=== PATIENT | male | born 1970 | race Caucasian/White ===

== ENCOUNTER 2016-11-10 00:21 | Inpatient (IN) | payer BC ==
[~2016-11-10] VITALS: Ht 172.7 cm; Wt 61.4 kg
[2016-11-10] MEDS ORDERED: LISI10TA2 PO (03:45)
[2016-11-10] MEDS ORDERED: ATOR20TA65 PO (03:45)
[2016-11-10] MEDS ORDERED: LINA1TAB7 PO (03:45)
[2016-11-10] MEDS ORDERED: SITA50TA2 PO (03:45)
[2016-11-10] MEDS ORDERED: EMPA10TA PO (03:45)
[2016-11-10] MEDS ORDERED: ASPI-664 PO (03:45)
[2016-11-10 03:50] VITALS: BP 106/68; PULSE 61; RESP 20
[2016-11-10] MEDS ORDERED: DOCUSATE SODIUM 100 MG CAP PO PRN (05:00)
[2016-11-10] MEDS ORDERED: BISACODYL (EC) 5 MG TAB PO PRN (05:00)
[2016-11-10] MEDS ORDERED: ACETAMINOPHEN 325 MG TAB PO PRN (05:00)
[2016-11-10 05:27] LABS: ADD SCAN DIFF NO
[2016-11-10] MEDS ORDERED: GLUCOSE GEL 15 GRAM TUBE PO PRN ×2 (05:30)
[2016-11-10] MEDS ORDERED: GLUCAGON 1 MG INJ IM PRN (05:30)
[2016-11-10] MEDS ORDERED: DEXTROSE 50% 50 ML SYRINGE IV PRN ×2 (05:30)
[2016-11-10] MEDS ORDERED: GLUCOSE GEL 15 GRAM TUBE BUCCAL PRN (05:30)
[2016-11-10 05:41] LABS: BASOPHIL # 0.2 10^3/ul (0.0-0.1); BASOPHILS % 1.6 % (0.0-2.0); EOSINOPHILS # 0.9 10^3/ul (0.0-0.5); EOSINOPHILS % 9.9 % (0.0-7.0); HEMATOCRIT 45.9 % (42.0-52.0); LYMPHOCYTES # 2.8 10^3/ul (0.8-2.9); LYMPHOCYTES % 29.5 % (15.0-51.0); MEAN CORPUSCULAR HGB CONC 32.7 g/dl (32.0-37.0); MEAN CORPUSCULAR VOLUME 91.8 fl (82.0-101.0); MEAN PLATELET VOLUME 8.9 fl (7.4-10.4); MONOCYTE # 0.8 10^3/ul (0.3-0.9); MONOCYTES % 8.1 % (0.0-11.0); NEUTROPHIL # 4.8 10^3/ul (1.6-7.5); NEUTROPHILS % 50.5 % (39.0-77.0); PLATELET COUNT 336 10^3/UL (140-415); RED CELL DISTRIBUTION WIDTH 12.9 % (11.5-14.5); WHITE BLOOD COUNT 9.5 10^3/ul (4.8-10.8)
[2016-11-10] MEDS: PANTOPRAZOLE (EC) 40 MG TAB PO SCH (05:48)
[2016-11-10 06:06] LABS: ALBUMIN 4.7 g/dl (3.3-4.9); ALBUMIN/GLOBULIN RATIO 1.95; BILIRUBIN,INDIRECT 0.5 mg/dl (0-1.1); BILIRUBIN,TOTAL 0.5 mg/dl (0.2-1.3); CALCIUM 9.3 mg/dl (8.4-10.2); CREATININE 0.64 mg/dl (0.61-1.24); POTASSIUM 4.1 mmol/L (3.5-5.1); TOTAL PROTEIN 7.1 g/dl (6.1-8.1)
[2016-11-10 06:12] VITALS: Ht 172.7 cm; Wt 61.4 kg
[2016-11-10] MEDS: IPRATROPIUM (NEB) 0.5 MG/2.5 ML AMP HHN SCH ×5 (08:00→20:22)
[2016-11-10] MEDS: [UNRECOGNIZED DRUG - REMARK] XX SCH ×2 (08:00→15:40)
[2016-11-10 08:45] VITALS: BP 115/68; RESP 20
[2016-11-10] MEDS: ASPIRIN (EC) 81 MG TAB PO SCH (08:56)
[2016-11-10] MEDS: LISINOPRIL 10 MG TAB PO SCH (08:56)
[2016-11-10] MEDS ORDERED: LINAGLIPTIN 5 MG TABLET PO SCH (09:00)
[2016-11-10] MEDS: INSULIN ASPART [NOVOLOG] 3 ML PEN SC SCH ×4 (09:01→21:24)
[2016-11-10 12:45] LABS: INR 0.88; PROTIME 11.9 Sec (12.2-14.2); PT RATIO 0.9
[2016-11-10] MEDS: DEXAMETHASONE 10 MG/ML 1 ML INJ IV SCH ×3 (15:24→23:19)
--- NOTE | 2016-11-10 17:55 | HP ---
Date/Time of Note Date/Time of Note DATE: 11/10/16 TIME: 17:50 Assessment/Plan VTE Prophylaxis VTE Prophylaxis Intervention: other Lines/Catheters IV Catheter Type (from [facility]): Saline Lock Urinary Cath still in place: Yes Reason Cath still needed: other (indicate) Assessment/Plan Chief Complaint/Hosp Course POSSIBLE GB SYNDROME DM HTN HX PLAN NEURO NEURO SURGERY Problems: HPI/ROS Admit Date/Time Admit Date/Time Nov 10, 2016 at 03:06 Hx of Present Illness pt bhavani langley ex wealm[facility] for 3 days was in [facility] tranfered to [facility] ROS Constitutional: chills, no complaints Eyes: no complaints ENT: no complaints Respiratory: no complaints Cardiovascular: no complaints Gastrointestinal: no complaints Genitourinary: no complaints Musculoskeletal: other (weakness extremi+) Skin: no complaints Neurologic: no complaints Endocrine: no complaints Lymphatic: no complaints Psychological: no complaints Immunologic: no complaints PMH/Family/Social Past Medical History Medical History: no pertinent history Past Surgical History Past Surgical Hx: no surgical history Family History Significant Family History: no pertinent family hx Social History Smoking Status: Current every day smoker Exam/Review of Systems Vital Signs Vitals Vital Signs Date Time Temp Pulse Resp B/P Pulse Ox O2 Delivery O2 Flow Rate FiO2 11/10/16 13:00 59 16 97 21 11/10/16 08:45 98.3 115/68 11/10/16 03:50 Room Air Intake and Output 11/09/16 11/09/16 11/10/16 15:00 23:00 07:00 Intake Total 700 ml Output Total 500 ml Balance 200 ml Exam Constitutional: alert, oriented, well developed Psych: nl mood/affect, no complaints Head: atraumatic, normocephalic Eyes: EOMI, nl conjunctiva, nl lids ENMT: nl external ears & nose, nl lips & teeth, nl nasal mucosa & septum Neck: non-tender, supple Respiratory: clear to auscultation, normal air movement Cardiovascular: nl pulses, regular rate and rhythm Gastrointestinal: nl liver, spleen, non-tender, soft Genitourinary - Female: nl adnexae, nl external genitalia Musculoskeletal: nl extremities to inspection, nl gait and stance Extremities: normal pulses Neurological: ASSURANCE ASSISTANT II-XII intact, focal weakness (upper amd lower ex) Labs Result Diagram: 11/10/16 0500 11/10/16 0500 Medications Medications Current Medications Pantoprazole (Protonix Tab) 40 mg DAILY@06 PO Last administered on 11/10/16 05 :48; Admin Dose 40 MG; Start 11/10/16 at 06:00 Acetaminophen (Tylenol Tab) 650 mg Q6H PRN PO PAIN AND OR ELEVATED TEMP; Start 11/10/16 at 05:00 Docusate Sodium (Colace) 100 mg TID PRN PO CONSTIPATION; Start 11/10/16 at 05: 00 Bisacodyl (Dulcolax) 10 mg BID PRN PO CONSTIPATION; Start 11/10/16 at 05:00 Aspirin (Halfprin) 81 mg DAILY PO Last administered on 11/10/16 08:56; Admin Dose 81 MG; Start 11/10/16 at 09:00 Atorvastatin Calcium (Lipitor) 20 mg HS PO ; Start 11/10/16 at 21:00 Lisinopril (Zestril) 10 mg DAILY PO Last administered on 11/10/16 08:56; Admin Dose 10 MG; Start 11/10/16 at 09:00 Miscellaneous Information (* Miscellaneous Pharmacy Order) CHARLYMARIELY 2.09/999 ONE TAB... ONCE XX ; Start 11/10/16 at 05:00; Status UNV Diagnostic Test (Pha) (Accu-Chek) 1 ea 02 XX ; Start 11/11/16 at 02:00 Diagnostic Test (Pha) (Accu-Chek) 1 ea 02 XX ; Start 11/11/16 at 02:00 Miscellaneous Information 1 ea NOTE XX ; Start 11/10/16 at 05:30 Glucose (Glutose) 15 gm Q15M PRN PO DECREASED GLUCOSE; Start 11/10/16 at 05:30 Glucose (Glutose) 22.5 gm Q15M PRN PO DECREASED GLUCOSE; Start 11/10/16 at 05: 30 Dextrose (D50w Syringe) 25 ml Q15M PRN IV DECREASED GLUCOSE; Start 11/10/16 at 05:30 Dextrose (D50w Syringe) 50 ml Q15M PRN IV DECREASED GLUCOSE; Start 11/10/16 at 05:30 Glucagon (Glucagen) 1 mg Q15M PRN IM DECREASED GLUCOSE; Start 11/10/16 at 05:30 Glucose (Glutose) 15 gm Q15M PRN BUCCAL DECREASED GLUCOSE; Start 11/10/16 at 05 :30 Linagliptin (Tradjenta) 5 mg DAILY PO Last administered on 11/10/16 08:45; Admin Dose 5 MG; Start 11/10/16 at 09:00 Dexamethasone (Decadron) 10 mg Q6 IV Last administered on 11/10/16 15:24; Admin Dose 10 MG; Start 11/10/16 at 12:00 NYASIA JOSEPH MD Nov 10, 2016 17:55
[2016-11-10] MEDS: JENTADUETO PO SCH (18:30)
[2016-11-10] MEDS ORDERED: IMMUNE GLOBULIN (HUMAN) 6 GM INJ IV SCH (19:00)
--- NOTE | 2016-11-10 19:18 | CONS ---
Date/Time of Note Date/Time of Note DATE: 11/10/16 TIME: 19:01 Assessment/Plan Assessment/Plan Chief Complaint/Hosp Course PHYSICAL EXAMINATION: GENERAL: Not in acute distress, lying in bed. HEENT: Normocephalic, atraumatic head. NECK: No carotid bruits. No thyromegaly. LUNGS: Clear to auscultation bilaterally. CARDIAC: Normal cardiac rhythm and sounds. ABDOMEN: Soft. EXTREMITIES: No cyanosis, clubbing, or edema. NEUROLOGIC: He is awake, alert, and oriented x3 with fluent speech. Cranial nerve examination shows intact visual ventura bilaterally. Pupils round, reactive to light from 3 to 2 mm bilaterally. Extraocular movements intact without nystagmus. Symmetrical face. Preserved facial strength and sensation. Tongue is in midline. Palate elevates symmetrically. Motor strength examination 3/5 UE, RLE, 3-/5 LLE. Normal bulk, decreased tone. Sensory examination shows diminution of perception of pinprick and vibration in bilateral hands and forearms and feet with forelegs. Deep tendon reflexes 1+ RUE, 0 LUE, absent in lower extremities, except 2 right knee jerk. Downgoing toes bilaterally. Coordination preserved on [id number] testing. No dysmetria or tremor. 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 LP with protein. Neg insp pressure daily by RT. NS evaluated the pt, advised to have C-spine MRI here , will be done tonight. Problems: Past Medical History Medical History: no pertinent history, diabetes Past Surgical History Past Surgical Hx: no surgical history Family History Significant Family History: no pertinent family hx Social History Smoking Status: Current every day smoker Admit Date/Time Admit Date/Time Nov 10, 2016 at 03:06 Hx of Present Illness 46 y/o male with rapid onset of generalized weakness, started LLE, ascending, electrical paresthesias, pain in extremities about 10 days ago. Slightly better now, no pain, strength is better UE. No B/B, SOB, dysarthria, dysphagia, diplopia, headache. ROS Constitutional: chills, no complaints Eyes: no complaints ENT: no complaints Respiratory: no complaints Cardiovascular: no complaints Gastrointestinal: no complaints Genitourinary: no complaints Musculoskeletal: other (weakness extremi+) Skin: no complaints Neurologic: no complaints Endocrine: no complaints Lymphatic: no complaints Psychological: nl mood/affect, no complaints Immunologic: no complaints Exam/Review of Systems Vital Signs Vitals Vital Signs Date Time Temp Pulse Resp B/P Pulse Ox O2 Delivery O2 Flow Rate FiO2 11/10/16 13:00 59 16 97 21 11/10/16 08:45 98.3 115/68 11/10/16 03:50 Room Air Intake and Output 11/09/16 11/09/16 11/10/16 15:00 23:00 07:00 Intake Total 700 ml Output Total 500 ml Balance 200 ml Results Result Diagram: 11/10/16 0500 11/10/16 0500 Results 24 hrs Laboratory Tests Test 11/10/16 03:54 11/10/16 05:00 11/10/16 08:44 11/10/16 11:57 Bedside Glucose 125 152 White Blood Count 9.5 Red Blood Count 5.00 Hemoglobin 15.0 Hematocrit 45.9 Mean Corpuscular Volume 91.8 Mean Corpuscular Hemoglobin 30.0 Mean Corpuscular Hemoglobin Concent 32.7 Red Cell Distribution Width 12.9 Platelet Count 336 Mean Platelet Volume 8.9 Neutrophils % 50.5 Lymphocytes % 29.5 Monocytes % 8.1 Eosinophils % 9.9 H Basophils % 1.6 Nucleated Red Blood Cells % 0.0 Neutrophils # 4.8 Lymphocytes # 2.8 Monocytes # 0.8 Eosinophils # 0.9 H Basophils # 0.2 H Nucleated Red Blood Cells # 0.0 Sodium Level 138 Potassium Level 4.1 Chloride Level 102 Carbon Dioxide Level 26 Anion Gap 14 Blood Urea Nitrogen 29 H Creatinine 0.64 Glucose Level 107 Calcium Level 9.3 Total Bilirubin 0.5 Direct Bilirubin 0.00 Indirect Bilirubin 0.5 Aspartate Amino Transf (AST/SGOT) 50 H Alanine Aminotransferase (ALT/SGPT) 56 Alkaline Phosphatase 63 Total Protein 7.1 Albumin 4.7 Globulin 2.40 Albumin/Globulin Ratio 1.95 Prothrombin Time 11.9 L Prothrombin Time Ratio 0.9 INR International Normalized Ratio 0.88 Activated Partial Thromboplast Time 38.0 H Test 11/10/16 13:24 11/10/16 17:45 Bedside Glucose 126 243 H Medications Medications Current Medications Pantoprazole (Protonix Tab) 40 mg DAILY@06 PO Last administered on 11/10/16t 05 :48; Admin Dose 40 MG; Start 11/10/16 at 06:00 Acetaminophen (Tylenol Tab) 650 mg Q6H PRN PO PAIN AND OR ELEVATED TEMP; Start 11/10/16 at 05:00 Docusate Sodium (Colace) 100 mg TID PRN PO CONSTIPATION Last administered on 17:46; Admin Dose 100 MG; Start 11/10/16 at 05:00 Bisacodyl (Dulcolax) 10 mg BID PRN PO CONSTIPATION; Start 11/10/16 at 05:00 Aspirin (Halfprin) 81 mg DAILY PO Last administered on 11/10/16 08:56; Admin Dose 81 MG; Start 11/10/16 at 09:00 Atorvastatin Calcium (Lipitor) 20 mg HS PO ; Start 11/10/16 at 21:00 Lisinopril (Zestril) 10 mg DAILY PO Last administered on 11/10/16 08:56; Admin Dose 10 MG; Start 11/10/16 at 09:00 Diagnostic Test (Pha) (Accu-Chek) 1 ea 02 XX ; Start 11/11/16 at 02:00 Miscellaneous Information 1 ea NOTE XX ; Start 11/10/16 at 05:30 Glucose (Glutose) 15 gm Q15M PRN PO DECREASED GLUCOSE; Start 11/10/16 at 05:30 Glucose (Glutose) 22.5 gm Q15M PRN PO DECREASED GLUCOSE; Start 11/10/16 at 05: 30 Dextrose (D50w Syringe) 25 ml Q15M PRN IV DECREASED GLUCOSE; Start 11/10/16 at 05:30 Dextrose (D50w Syringe) 50 ml Q15M PRN IV DECREASED GLUCOSE; Start 11/10/16 at 05:30 Glucagon (Glucagen) 1 mg Q15M PRN IM DECREASED GLUCOSE; Start 11/10/16 at 05:30 Glucose (Glutose) 15 gm Q15M PRN BUCCAL DECREASED GLUCOSE; Start 11/10/16 at 05 :30 Dexamethasone (Decadron) 10 mg Q6 IV Last administered on 11/10/16 15:24; Admin Dose 10 MG; Start 11/10/16 at 12:00 Immune Globulin (Carimune Nf) 30 gm DAILY IV ; Start 11/10/16 at 19:00; Stop at 18:59; Status UNV Acetaminophen (Tylenol Tab) 1,000 mg DAILY PO ; Start 11/10/16 at 19:00; Stop at 18:59; Status UNV Diphenhydramine HCl (Benadryl) 50 mg DAILY PO ; Start 11/10/16 at 19:00; Stop at 18:59; Status UNV DEMETRICE GUADALUPE MD Nov 10, 2016 19:11
[2016-11-10 20:00] VITALS: BP 114/72; RESP 19
[2016-11-10] MEDS: DIPHENHYDRAMINE 50 MG CAP PO SCH (21:18)
[2016-11-10] MEDS: ACETAMINOPHEN 500 MG TAB PO SCH (21:19)
[2016-11-10] MEDS: ATORVASTATIN 20 MG TAB PO SCH (21:19)
[2016-11-10] MEDS: WATER STERILE FOR IV SCH (21:31)
[2016-11-10] MEDS: IMMUNE GLOBULIN IV SCH (21:31)
[2016-11-10] MEDS ORDERED: SOD CHLORIDE 0.9% IV SCH (22:00)
[2016-11-10] MEDS ORDERED: IMMUNE GLOBULIN IV SCH (22:00)
--- NOTE | 2016-11-10 23:41 | RADRPT ---
PROCEDURE: MR Cervical Spine without contrast. CLINICAL INDICATION: Spinal stenosis. TECHNIQUE: An MRI of the cervical spine was performed on a 1.5 anna scanner utilizing the follow ing sequences: Pre and postcontrast sagittal and axial T1 weighted, sagittal and axial T2 weighted, and sagittal T2 weighted with fat saturation. COMPARISON: None. FINDINGS:. The visualized posterior fossa contents and brainstem are unremarkable. There is a normal lordosis of the cervical spine. The vertebral bodies are normal in height and sign al intensity. The cervical cord is normal in caliber and signal intensity. The craniocervical junct ion is unremarkable. 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 This exacerbated by multilevel facet joint arthropathy and degenerative disk changes as d escribed below. C2-3: The disk is normal in height and hydration. Moderate to severe hypertrophic facet joint arthr opathy bilaterally resulting in severe left foraminal stenosis without significant right foraminal s tenosis. Moderate central canal stenosis of 7 mm in AP dimension C3-4: Disk desiccation and loss of disk height with anterior endplate spurring and right the left giron barticular to foraminal disk osteophyte complex measuring 5 mm in AP dimension. Severe right and mo derate to severe left hypertrophic facet joint arthropathy. Severe right foraminal stenosis without significant left foraminal stenosis. Severe central canal stenosis of 6 mm asymmetric to the right . C4-5: Disk desiccation and mild loss of disk height with anterior endplate spurring and minimal post erior spondylitic ridging. Small central to left subarticular disk osteophyte complex measuring 3 m m in AP dimension. Moderate to severe bilateral hypertrophic facet joint arthropathy resulting in m oderate left and right foraminal stenosis mild central canal stenosis of 8 mm in AP dimension C5-6: Disk desiccation and mild loss of disk height with anterior endplate spurring and minimal post erior spondylitic ridging. Mild facet joint arthropathy. Mild central canal stenosis of 9 mm in AP dimension. No foraminal stenosis. C6-7: Mild disk desiccation and normal disk height with new moderate bilateral facet joint arthropat hy. Left subarticular disk osteophyte complex measuring 3 mm in AP dimension narrowing the left sub articular recess without significant central canal or left foraminal stenosis. Moderate right kayli inal stenosis. C7-T1: The intervertebral disc is normal without foraminal or canal narrowing. No paraspinal soft tissue abnormality. IMPRESSION: 1. 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 This results in v arying degrees of bilateral foraminal and central canal stenosis as detailed above. This is most pro nounced at C3-C4 resulting in severe right foraminal and central canal stenosis without significant left foraminal stenosis. 2. Normal cervical spinal cord. 3. No paraspinal soft tissues. RPTAT:AAJJ Physician Phi Date Time Electronically viewed and signed by Physician Phi on 11/10/2016 23:41 KINSEY/
[2016-11-11] MEDS: ACCU-CHEK XX SCH (02:00)
[2016-11-11] MEDS ORDERED: ACCU-CHEK XX SCH (02:00)
[2016-11-11] MEDS: IPRATROPIUM (NEB) 0.5 MG/2.5 ML AMP HHN SCH ×4 (02:03→21:14)
[2016-11-11 05:26] LABS: ADD SCAN DIFF NO
[2016-11-11] MEDS: PANTOPRAZOLE (EC) 40 MG TAB PO SCH (05:31)
[2016-11-11] MEDS: DEXAMETHASONE 10 MG/ML 1 ML INJ IV SCH ×2 (05:31→13:00)
[2016-11-11 05:38] LABS: BASOPHILS % 0.2 % (0.0-2.0); HEMATOCRIT 43.4 % (42.0-52.0); HEMOGLOBIN 15.1 g/dl (14.0-18.0); LYMPHOCYTES # 1.2 10^3/ul (0.8-2.9); LYMPHOCYTES % 11.6 % (15.0-51.0); MEAN CORPUSCULAR HEMOGLOBIN 30.9 pg (29.0-33.0); MEAN CORPUSCULAR HGB CONC 34.8 g/dl (32.0-37.0); MEAN CORPUSCULAR VOLUME 88.9 fl (82.0-101.0); MONOCYTE # 0.1 10^3/ul (0.3-0.9); MONOCYTES % 0.7 % (0.0-11.0); PLATELET COUNT 377 10^3/UL (140-415); RED BLOOD COUNT 4.88 10^6/ul (4.70-6.10); RED CELL DISTRIBUTION WIDTH 12.3 % (11.5-14.5); WHITE BLOOD COUNT 10.3 10^3/ul (4.8-10.8)
[2016-11-11 06:26] LABS: ALBUMIN 4.7 g/dl (3.3-4.9); ALBUMIN/GLOBULIN RATIO 1.88; BILIRUBIN,INDIRECT 0.2 mg/dl (0-1.1); BILIRUBIN,TOTAL 0.2 mg/dl (0.2-1.3); CREATININE 0.65 mg/dl (0.61-1.24); POTASSIUM 4.7 mmol/L (3.5-5.1); TOTAL PROTEIN 7.2 g/dl (6.1-8.1)
[2016-11-11 08:09] VITALS: BP 109/64; RESP 19
[2016-11-11] MEDS: ASPIRIN (EC) 81 MG TAB PO SCH (08:44)
[2016-11-11] MEDS: LISINOPRIL 10 MG TAB PO SCH (08:44)
[2016-11-11] MEDS: JENTADUETO PO SCH ×2 (08:44→17:49)
[2016-11-11] MEDS: INSULIN ASPART [NOVOLOG] 3 ML PEN SC SCH ×4 (09:01→20:38)
[2016-11-11 12:21] LABS: # OF CELLS COUNTED 100
[2016-11-11 13:31] LABS: CSF COLOR RED; CSF#TUBES REC'D 4
[2016-11-11 13:34] LABS: %CREANATED RBC CSF 0 %
[2016-11-11 13:35] LABS: CSF#TUBE COUNT TUBE#3
[2016-11-11 14:11] LABS: GLUCOSE,CSF 173 mg/dl (50-80)
--- NOTE | 2016-11-11 14:16 | RADRPT ---
PROCEDURE: Fluoroscopic guided lumbar puncture. CLINICAL INDICATION: Guillain-Sandoval a syndrome. TECHNIQUE: Prior to the procedure, informed consent was obtained. Risks including bleeding and in fection were explained to the patient. The patient understood and was willing to proceed. A proced ural pause was performed. The patient's name, date of , and procedure to be performed were tommy ified. Using local anesthetic, sterile technique, and fluoroscopic guidance, a 22-gauge spinal needle was a dvanced into the thecal sac at the L4-5 level. 6 mL of additionally bloody than clear cerebrospina l fluid was aspirated and sent for laboratory analysis. The needle was removed. A dressing was eveline lied. The patient tolerated the procedure well. A total of 0.1 minutes of fluoroscopy time was used. 4 images of the lumbar spine were obtained with frontal and lateral views. COMPARISON: None. FINDINGS: Images demonstrate the needle at the L4-5 level in the thecal sac. IMPRESSION: 1. Satisfactory fluoroscopic guided lumbar puncture. RPTAT: QQ .Eliud Ontiveros MD, MD Date Time Electronically viewed and signed by .Eliud Ontiveros MD, on 11/11/2016 14:15 .R/
[2016-11-11 19:56] VITALS: BP 101/55; RESP 18
[2016-11-11] MEDS: ATORVASTATIN 20 MG TAB PO SCH (20:31)
[2016-11-11] MEDS: DIPHENHYDRAMINE 50 MG CAP PO SCH (21:36)
[2016-11-11] MEDS: ACETAMINOPHEN 500 MG TAB PO SCH (21:37)
[2016-11-11] MEDS: WATER STERILE FOR IV SCH (22:05)
[2016-11-11] MEDS: IMMUNE GLOBULIN IV SCH (22:05)
--- NOTE | 2016-11-11 22:45 | PN ---
Date/Time of Note Date/Time of Note DATE: 11/11/16 TIME: 22:43 Assessment/Plan VTE Prophylaxis VTE Prophylaxis Intervention: other Lines/Catheters IV Catheter Type (from Nrs): Saline Lock Assessment/Plan Chief Complaint/Hosp Course POSSIBLE GB SYNDROME DM HTN HX PLAN NEURO NEURO SURGERY ivig Problems: Subjective 24 Hr Interval Summary Respiratory: no complaints Cardiovascular: no complaints Neurologic: other (weakness better) Exam/Review of Systems Vital Signs Vitals Vital Signs Date Time Temp Pulse Resp B/P Pulse Ox O2 Delivery O2 Flow Rate FiO2 11/11/16 21:16 82 20 98 21 11/11/16 19:56 98.8 101/55 11/10/16 03:50 Room Air Intake and Output 11/10/16 11/10/16 11/11/16 15:00 23:00 07:00 Intake Total 960 ml 2240 ml Output Total 1000 ml 2100 ml Balance -40 ml 140 ml Exam Neck: supple Respiratory: clear to auscultation Cardiovascular: regular rate and rhythm Gastrointestinal: soft Musculoskeletal: nl extremities to inspection Extremities: normal pulses Neurological: other (weakness better) Results Result Diagram: 11/11/16 0425 11/11/16 0425 Results 24 hrs Laboratory Tests Test 11/11/16 02:02 11/11/16 04:25 11/11/16 08:42 11/11/16 11:41 Bedside Glucose 245 H 337 H White Blood Count 10.3 Red Blood Count 4.88 Hemoglobin 15.1 Hematocrit 43.4 Mean Corpuscular Volume 88.9 Mean Corpuscular Hemoglobin 30.9 Mean Corpuscular Hemoglobin Concent 34.8 Red Cell Distribution Width 12.3 Platelet Count 377 Mean Platelet Volume 9.0 Neutrophils % 87.0 H Lymphocytes % 11.6 L Monocytes % 0.7 Eosinophils % 0.0 Basophils % 0.2 Nucleated Red Blood Cells % 0.0 Neutrophils # 9.0 H Lymphocytes # 1.2 Monocytes # 0.1 L Eosinophils # 0.0 Basophils # 0.0 Nucleated Red Blood Cells # 0.0 Sodium Level 135 Potassium Level 4.7 Chloride Level 99 Carbon Dioxide Level 25 Anion Gap 16 Blood Urea Nitrogen 28 H Creatinine 0.65 Glucose Level 229 #H Calcium Level 9.0 Total Bilirubin 0.2 Direct Bilirubin 0.00 Indirect Bilirubin 0.2 Aspartate Amino Transf (AST/SGOT) 34 Alanine Aminotransferase (ALT/SGPT) 62 Alkaline Phosphatase 70 Total Protein 7.2 Albumin 4.7 Globulin 2.50 Albumin/Globulin Ratio 1.88 CSF Tubes Submitted 4 CSF Volume 6.0 CSF Appearance BLOODY CSF Color RED CSF WBC 29 *H CSF RBC 23 H CSF Cell Count Tube # TUBE#3 CSF Total Cells Counted 100 CSF Neutrophils % 52 CSF Lymphocytes % 38 CSF Monocytes % 10 CSF Crenated Cells 0 CSF Glucose 173 H CSF Total Protein 293 H Test 11/11/16 12:58 11/11/16 17:46 11/11/16 20:28 Bedside Glucose 229 H 367 H 306 H Medications Medications Current Medications Pantoprazole (Protonix Tab) 40 mg DAILY@06 PO Last administered on 11/11/16 05 :31; Admin Dose 40 MG; Start 11/10/16 at 06:00 Acetaminophen (Tylenol Tab) 650 mg Q6H PRN PO PAIN AND OR ELEVATED TEMP; Start 11/10/16 at 05:00 Docusate Sodium (Colace) 100 mg TID PRN PO CONSTIPATION Last administered on 17:46; Admin Dose 100 MG; Start 11/10/16 at 05:00 Bisacodyl (Dulcolax) 10 mg BID PRN PO CONSTIPATION; Start 11/10/16 at 05:00 Aspirin (Halfprin) 81 mg DAILY PO Last administered on 11/11/16 08:44; Admin Dose 81 MG; Start 11/10/16 at 09:00 Atorvastatin Calcium (Lipitor) 20 mg HS PO Last administered on 11/11/16 20:31 ; Admin Dose 20 MG; Start 11/10/16 at 21:00 Lisinopril (Zestril) 10 mg DAILY PO Last administered on 11/11/16 08:44; Admin Dose 10 MG; Start 11/10/16 at 09:00 Diagnostic Test (Pha) (Accu-Chek) 1 ea 02 XX Last administered on 11/11/16 02: 00; Admin Dose 1 EA; Start 11/11/16 at 02:00 Miscellaneous Information 1 ea NOTE XX ; Start 11/10/16 at 05:30 Glucose (Glutose) 15 gm Q15M PRN PO DECREASED GLUCOSE; Start 11/10/16 at 05:30 Glucose (Glutose) 22.5 gm Q15M PRN PO DECREASED GLUCOSE; Start 11/10/16 at 05: 30 Dextrose (D50w Syringe) 25 ml Q15M PRN IV DECREASED GLUCOSE; Start 11/10/16 at 05:30 Dextrose (D50w Syringe) 50 ml Q15M PRN IV DECREASED GLUCOSE; Start 11/10/16 at 05:30 Glucagon (Glucagen) 1 mg Q15M PRN IM DECREASED GLUCOSE; Start 11/10/16 at 05:30 Glucose (Glutose) 15 gm Q15M PRN BUCCAL DECREASED GLUCOSE; Start 11/10/16 at 05 :30 Acetaminophen (Tylenol Tab) 1,000 mg Q24H PO Last administered on 11/11/16 21: 37; Admin Dose 1,000 MG; Start 11/10/16 at 21:30; Stop 11/13/16 at 21:29 Diphenhydramine HCl 50 mg 50 mg Q24H PO Last administered on 11/11/16 21:36; Admin Dose 50 MG; Start 11/10/16 at 21:30; Stop 11/13/16 at 21:29 Immune Globulin/ Sterile Water (Carimune Nf/ Water Sterile For Inj) 1,000 ml @ 0 mls/hr Q24H IV Last administered on 11/11/16 22:05; Admin Dose 0 MLS/HR; Start 11/10/16 at 22:00; Stop 11/13/16 at 21:59 NYASIA JOSEPH MD Nov 11, 2016 22:44
--- NOTE | 2016-11-11 23:13 | CONS ---
Date/Time of Note Date/Time of Note DATE: 11/11/16 TIME: 23:11 Consult Date/Type/Reason Admit Date/Time Nov 10, 2016 at 03:06 Initial Consult Date Type of Consultation: neurology Subjective Started IVIG, feels slightly stronger, no SOB Objective Vital Signs Date Time Temp Pulse Resp B/P Pulse Ox O2 Delivery O2 Flow Rate FiO2 11/11/16 21:16 82 20 98 21 11/11/16 19:56 98.8 101/55 11/10/16 03:50 Room Air Intake and Output 11/10/16 11/10/16 11/11/16 15:00 23:00 07:00 Intake Total 960 ml 2240 ml Output Total 1000 ml 2100 ml Balance -40 ml 140 ml Results/Medications Result Diagram: 11/11/16 0425 11/11/16 0425 Results 24 hrs Laboratory Tests Test 11/11/16 02:02 11/11/16 04:25 11/11/16 08:42 11/11/16 11:41 Bedside Glucose 245 H 337 H White Blood Count 10.3 Red Blood Count 4.88 Hemoglobin 15.1 Hematocrit 43.4 Mean Corpuscular Volume 88.9 Mean Corpuscular Hemoglobin 30.9 Mean Corpuscular Hemoglobin Concent 34.8 Red Cell Distribution Width 12.3 Platelet Count 377 Mean Platelet Volume 9.0 Neutrophils % 87.0 H Lymphocytes % 11.6 L Monocytes % 0.7 Eosinophils % 0.0 Basophils % 0.2 Nucleated Red Blood Cells % 0.0 Neutrophils # 9.0 H Lymphocytes # 1.2 Monocytes # 0.1 L Eosinophils # 0.0 Basophils # 0.0 Nucleated Red Blood Cells # 0.0 Sodium Level 135 Potassium Level 4.7 Chloride Level 99 Carbon Dioxide Level 25 Anion Gap 16 Blood Urea Nitrogen 28 H Creatinine 0.65 Glucose Level 229 #H Calcium Level 9.0 Total Bilirubin 0.2 Direct Bilirubin 0.00 Indirect Bilirubin 0.2 Aspartate Amino Transf (AST/SGOT) 34 Alanine Aminotransferase (ALT/SGPT) 62 Alkaline Phosphatase 70 Total Protein 7.2 Albumin 4.7 Globulin 2.50 Albumin/Globulin Ratio 1.88 CSF Tubes Submitted 4 CSF Volume 6.0 CSF Appearance BLOODY CSF Color RED CSF WBC 29 *H CSF RBC 23 H CSF Cell Count Tube # TUBE#3 CSF Total Cells Counted 100 CSF Neutrophils % 52 CSF Lymphocytes % 38 CSF Monocytes % 10 CSF Crenated Cells 0 CSF Glucose 173 H CSF Total Protein 293 H Test 11/11/16 12:58 11/11/16 17:46 11/11/16 20:28 Bedside Glucose 229 H 367 H 306 H Medications Current Medications Pantoprazole (Protonix Tab) 40 mg DAILY@06 PO Last administered on 11/11/16 05 :31; Admin Dose 40 MG; Start 11/10/16 at 06:00 Acetaminophen (Tylenol Tab) 650 mg Q6H PRN PO PAIN AND OR ELEVATED TEMP; Start 11/10/16 at 05:00 Docusate Sodium (Colace) 100 mg TID PRN PO CONSTIPATION Last administered on 17:46; Admin Dose 100 MG; Start 11/10/16 at 05:00 Bisacodyl (Dulcolax) 10 mg BID PRN PO CONSTIPATION; Start 11/10/16 at 05:00 Aspirin (Halfprin) 81 mg DAILY PO Last administered on 11/11/16 08:44; Admin Dose 81 MG; Start 11/10/16 at 09:00 Atorvastatin Calcium (Lipitor) 20 mg HS PO Last administered on 11/11/16 20:31 ; Admin Dose 20 MG; Start 11/10/16 at 21:00 Lisinopril (Zestril) 10 mg DAILY PO Last administered on 11/11/16 08:44; Admin Dose 10 MG; Start 11/10/16 at 09:00 Diagnostic Test (Pha) (Accu-Chek) 1 ea 02 XX Last administered on 11/11/16 02: 00; Admin Dose 1 EA; Start 11/11/16 at 02:00 Miscellaneous Information 1 ea NOTE XX ; Start 11/10/16 at 05:30 Glucose (Glutose) 15 gm Q15M PRN PO DECREASED GLUCOSE; Start 11/10/16 at 05:30 Glucose (Glutose) 22.5 gm Q15M PRN PO DECREASED GLUCOSE; Start 11/10/16 at 05: 30 Dextrose (D50w Syringe) 25 ml Q15M PRN IV DECREASED GLUCOSE; Start 11/10/16 at 05:30 Dextrose (D50w Syringe) 50 ml Q15M PRN IV DECREASED GLUCOSE; Start 11/10/16 at 05:30 Glucagon (Glucagen) 1 mg Q15M PRN IM DECREASED GLUCOSE; Start 11/10/16 at 05:30 Glucose (Glutose) 15 gm Q15M PRN BUCCAL DECREASED GLUCOSE; Start 11/10/16 at 05 :30 Acetaminophen (Tylenol Tab) 1,000 mg Q24H PO Last administered on 11/11/16 21: 37; Admin Dose 1,000 MG; Start 11/10/16 at 21:30; Stop 11/13/16 at 21:29 Diphenhydramine HCl 50 mg 50 mg Q24H PO Last administered on 11/11/16 21:36; Admin Dose 50 MG; Start 11/10/16 at 21:30; Stop 11/13/16 at 21:29 Immune Globulin/ Sterile Water (Carimune Nf/ Water Sterile For Inj) 1,000 ml @ 0 mls/hr Q24H IV Last administered on 11/11/16 22:05; Admin Dose 0 MLS/HR; Start 11/10/16 at 22:00; Stop 11/13/16 at 21:59 Insulin Glargine (Lantus) 8 unit BID@08,20 SC ; Start 11/12/16 at 08:00 Assessment/Plan Chief Complaint/Hosp Course PHYSICAL EXAMINATION: GENERAL: Not in acute distress, lying in bed. HEENT: Normocephalic, atraumatic head. NECK: No carotid bruits. No thyromegaly. LUNGS: Clear to auscultation bilaterally. CARDIAC: Normal cardiac rhythm and sounds. ABDOMEN: Soft. EXTREMITIES: No cyanosis, clubbing, or edema. NEUROLOGIC: He is awake, alert, and oriented x3 with fluent speech. Cranial nerve examination shows intact visual ventura bilaterally. Pupils round, reactive to light from 3 to 2 mm bilaterally. Extraocular movements intact without nystagmus. Symmetrical face. Preserved facial strength and sensation. Tongue is in midline. Palate elevates symmetrically. Motor strength examination 3/5 UE, RLE, 3-/5 LLE. Normal bulk, decreased tone. Sensory examination shows diminution of perception of pinprick and vibration in bilateral hands and forearms and feet with forelegs. Deep tendon reflexes 1+ RUE, 0 LUE, absent in lower extremities, except 2 right knee jerk. Downgoing toes bilaterally. Coordination preserved on [id number] testing. No dysmetria or tremor. 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 LP has elevated protein. At times GBS may have some pleocytosis in CSF. No signs of meningitis, no headaches. Problems: DEMETRICE GUADALUPE MD Nov 11, 2016 23:13
[2016-11-12] MEDS: IPRATROPIUM (NEB) 0.5 MG/2.5 ML AMP HHN SCH ×4 (01:01→19:46)
[2016-11-12] MEDS: ACCU-CHEK XX SCH (02:00)
[2016-11-12] MEDS: PANTOPRAZOLE (EC) 40 MG TAB PO SCH (05:13)
[2016-11-12 08:00] VITALS: BP 113/69; RESP 19
[2016-11-12] MEDS: LISINOPRIL 10 MG TAB PO SCH (08:56)
[2016-11-12] MEDS: ASPIRIN (EC) 81 MG TAB PO SCH (08:56)
[2016-11-12] MEDS: INSULIN ASPART [NOVOLOG] 3 ML PEN SC SCH ×4 (09:03→20:33)
[2016-11-12] MEDS: INSULIN GLARGINE [LANtus] 3 ML PEN SC SCH ×2 (09:03→20:36)
[2016-11-12] MEDS: JENTADUETO PO SCH ×2 (10:03→17:48)
[2016-11-12 11:46] LABS: ANA SCREEN NEGATIVE (NEGATIVE)
[2016-11-12 19:40] VITALS: BP 100/55; RESP 18
[2016-11-12] MEDS: ATORVASTATIN 20 MG TAB PO SCH (20:37)
--- NOTE | 2016-11-12 20:54 | PN ---
Date/Time of Note Date/Time of Note DATE: 11/12/16 TIME: 20:53 Assessment/Plan VTE Prophylaxis VTE Prophylaxis Intervention: other Lines/Catheters IV Catheter Type (from Nrsg): Saline Lock Assessment/Plan Chief Complaint/Hosp Course POSSIBLE GB SYNDROME DM HTN HX PLAN NEURO IVIG NEURO SURGERY ivig Problems: Subjective 24 Hr Interval Summary Cardiovascular: no complaints Gastrointestinal: no complaints Neurologic: other (WEAKNESS BETTER) Endocrine: no complaints Exam/Review of Systems Vital Signs Vitals Vital Signs Date Time Temp Pulse Resp B/P Pulse Ox O2 Delivery O2 Flow Rate FiO2 11/12/16 19:46 72 18 98 21 11/12/16 19:40 98.3 100/55 11/10/16 03:50 Room Air Intake and Output 11/11/16 11/11/16 11/12/16 15:00 23:00 07:00 Intake Total 1380 ml 937 ml Output Total 2 ml 500 ml Balance 1378 ml 437 ml Exam Eyes: nl conjunctiva Neck: supple Respiratory: clear to auscultation Cardiovascular: regular rate and rhythm Gastrointestinal: soft Musculoskeletal: nl extremities to inspection Extremities: normal pulses Neurological: other (WEAKNESS BETTER) Results Result Diagram: 11/11/16 0425 11/11/16 0425 Results 24 hrs Laboratory Tests Test 11/12/16 01:58 11/12/16 08:54 11/12/16 13:08 11/12/16 17:45 Bedside Glucose 195 148 245 H 209 Test 11/12/16 20:33 Bedside Glucose 127 Medications Medications Current Medications Pantoprazole (Protonix Tab) 40 mg DAILY@06 PO Last administered on 11/12/16 05 :13; Admin Dose 40 MG; Start 11/10/16 at 06:00 Acetaminophen (Tylenol Tab) 650 mg Q6H PRN PO PAIN AND OR ELEVATED TEMP; Start 11/10/16 at 05:00 Docusate Sodium (Colace) 100 mg TID PRN PO CONSTIPATION Last administered on 17:46; Admin Dose 100 MG; Start 11/10/16 at 05:00 Bisacodyl (Dulcolax) 10 mg BID PRN PO CONSTIPATION; Start 11/10/16 at 05:00 Aspirin (Halfprin) 81 mg DAILY PO Last administered on 11/12/16 08:56; Admin Dose 81 MG; Start 11/10/16 at 09:00 Atorvastatin Calcium (Lipitor) 20 mg HS PO Last administered on 11/12/16 20:37 ; Admin Dose 20 MG; Start 11/10/16 at 21:00 Lisinopril (Zestril) 10 mg DAILY PO Last administered on 11/12/16 08:56; Admin Dose 10 MG; Start 11/10/16 at 09:00 Diagnostic Test (Pha) (Accu-Chek) 1 ea 02 XX Last administered on 11/12/16 02: 00; Admin Dose 1 EA; Start 11/11/16 at 02:00 Miscellaneous Information 1 ea NOTE XX ; Start 11/10/16 at 05:30 Glucose (Glutose) 15 gm Q15M PRN PO DECREASED GLUCOSE; Start 11/10/16 at 05:30 Glucose (Glutose) 22.5 gm Q15M PRN PO DECREASED GLUCOSE; Start 11/10/16 at 05: 30 Dextrose (D50w Syringe) 25 ml Q15M PRN IV DECREASED GLUCOSE; Start 11/10/16 at 05:30 Dextrose (D50w Syringe) 50 ml Q15M PRN IV DECREASED GLUCOSE; Start 11/10/16 at 05:30 Glucagon (Glucagen) 1 mg Q15M PRN IM DECREASED GLUCOSE; Start 11/10/16 at 05:30 Glucose (Glutose) 15 gm Q15M PRN BUCCAL DECREASED GLUCOSE; Start 11/10/16 at 05 :30 Acetaminophen (Tylenol Tab) 1,000 mg Q24H PO Last administered on 11/11/16 21: 37; Admin Dose 1,000 MG; Start 11/10/16 at 21:30; Stop 11/13/16 at 21:29 Diphenhydramine HCl 50 mg 50 mg Q24H PO Last administered on 11/11/16 21:36; Admin Dose 50 MG; Start 11/10/16 at 21:30; Stop 11/13/16 at 21:29 Immune Globulin/ Sterile Water (Carimune Nf/ Water Sterile For Inj) 1,000 ml @ 0 mls/hr Q24H IV Last administered on 11/11/16 22:05; Admin Dose 0 MLS/HR; Start 11/10/16 at 22:00; Stop 11/13/16 at 21:59 Insulin Glargine (Lantus) 8 unit BID@08,20 SC Last administered on 11/12/16t 20 :36; Admin Dose 8 UNIT; Start 11/12/16 at 08:00 NYASIA JOSEPH MD Nov 12, 2016 20:54
[2016-11-12] MEDS: DIPHENHYDRAMINE 50 MG CAP PO SCH (22:34)
[2016-11-12] MEDS: ACETAMINOPHEN 500 MG TAB PO SCH (22:34)
[2016-11-12] MEDS: IMMUNE GLOBULIN IV SCH (23:06)
[2016-11-12] MEDS: WATER STERILE FOR IV SCH (23:06)
[2016-11-13] MEDS: IPRATROPIUM (NEB) 0.5 MG/2.5 ML AMP HHN SCH ×4 (01:23→19:33)
[2016-11-13] MEDS: ACCU-CHEK XX SCH (02:00)
[2016-11-13] MEDS: PANTOPRAZOLE (EC) 40 MG TAB PO SCH (06:13)
[2016-11-13] MEDS: INSULIN ASPART [NOVOLOG] 3 ML PEN SC SCH ×4 (07:50→20:49)
[2016-11-13 07:54] VITALS: BP 99/60; RESP 18
[2016-11-13] MEDS: LISINOPRIL 10 MG TAB PO SCH (08:32)
[2016-11-13] MEDS: JENTADUETO PO SCH ×2 (08:44→17:50)
[2016-11-13] MEDS: ASPIRIN (EC) 81 MG TAB PO SCH (08:44)
[2016-11-13] MEDS: INSULIN GLARGINE [LANtus] 3 ML PEN SC SCH ×2 (08:45→20:48)
--- NOTE | 2016-11-13 15:40 | PN ---
Date/Time of Note Date/Time of Note DATE: 11/13/16 TIME: 15:39 Assessment/Plan VTE Prophylaxis VTE Prophylaxis Intervention: SCD's Lines/Catheters IV Catheter Type (from Nrs): Peripheral IV Urinary Cath still in place: No Assessment/Plan Chief Complaint/Hosp Course 1. GB SYNDROME 2. DM, uncontrolled 3. HTN, controlled Problems: Assessment/Plan 1. Transfer to SNF for rehabilitation Subjective 24 Hr Interval Summary Musculoskeletal: restricted range of motion Neurologic: other (weakness) Exam/Review of Systems Vital Signs Vitals Vital Signs Date Time Temp Pulse Resp B/P Pulse Ox O2 Delivery O2 Flow Rate FiO2 11/13/16 09:02 67 18 97 21 11/13/16 07:54 97.5 99/60 11/10/16 03:50 Room Air Intake and Output 11/12/16 11/12/16 11/13/16 15:00 23:00 07:00 Intake Total 1140 ml 1140 ml Output Total 2800 ml 800 ml Balance -1660 ml 340 ml Exam Constitutional: alert, oriented Respiratory: clear to auscultation Cardiovascular: regular rate and rhythm Results Result Diagram: 11/11/16 0425 11/11/16 0425 Results 24 hrs Laboratory Tests Test 11/12/16 17:45 11/12/16 20:33 11/13/16 08:19 11/13/16 12:24 Bedside Glucose 209 127 89 239 H Medications Medications Current Medications Pantoprazole (Protonix Tab) 40 mg DAILY@06 PO Last administered on 11/13/16 06 :13; Admin Dose 40 MG; Start 11/10/16 at 06:00 Acetaminophen (Tylenol Tab) 650 mg Q6H PRN PO PAIN AND OR ELEVATED TEMP; Start 11/10/16 at 05:00 Docusate Sodium (Colace) 100 mg TID PRN PO CONSTIPATION Last administered on 17:46; Admin Dose 100 MG; Start 11/10/16 at 05:00 Bisacodyl (Dulcolax) 10 mg BID PRN PO CONSTIPATION; Start 11/10/16 at 05:00 Aspirin (Halfprin) 81 mg DAILY PO Last administered on 11/13/16 08:44; Admin Dose 81 MG; Start 11/10/16 at 09:00 Atorvastatin Calcium (Lipitor) 20 mg HS PO Last administered on 11/12/16 20:37 ; Admin Dose 20 MG; Start 11/10/16 at 21:00 Lisinopril (Zestril) 10 mg DAILY PO Last administered on 11/12/16 08:56; Admin Dose 10 MG; Start 11/10/16 at 09:00 Diagnostic Test (Pha) (Accu-Chek) 1 ea 02 XX Last administered on 11/12/16 02: 00; Admin Dose 1 EA; Start 11/11/16 at 02:00 Miscellaneous Information 1 ea NOTE XX ; Start 11/10/16 at 05:30 Glucose (Glutose) 15 gm Q15M PRN PO DECREASED GLUCOSE; Start 11/10/16 at 05:30 Glucose (Glutose) 22.5 gm Q15M PRN PO DECREASED GLUCOSE; Start 11/10/16 at 05: 30 Dextrose (D50w Syringe) 25 ml Q15M PRN IV DECREASED GLUCOSE; Start 11/10/16 at 05:30 Dextrose (D50w Syringe) 50 ml Q15M PRN IV DECREASED GLUCOSE; Start 11/10/16 at 05:30 Glucagon (Glucagen) 1 mg Q15M PRN IM DECREASED GLUCOSE; Start 11/10/16 at 05:30 Glucose (Glutose) 15 gm Q15M PRN BUCCAL DECREASED GLUCOSE; Start 11/10/16 at 05 :30 Acetaminophen (Tylenol Tab) 1,000 mg Q24H PO Last administered on 11/12/16 22: 34; Admin Dose 1,000 MG; Start 11/10/16 at 21:30; Stop 11/13/16 at 21:29 Diphenhydramine HCl 50 mg 50 mg Q24H PO Last administered on 11/12/16 22:34; Admin Dose 50 MG; Start 11/10/16 at 21:30; Stop 11/13/16 at 21:29 Immune Globulin/ Sterile Water (Carimune Nf/ Water Sterile For Inj) 1,000 ml @ 0 mls/hr Q24H IV Last administered on 11/12/16 23:06; Admin Dose 0 MLS/HR; Start 11/10/16 at 22:00; Stop 11/13/16 at 21:59 Insulin Glargine (Lantus) 8 unit BID@08,20 SC Last administered on 6/30/17at 08 :45; Admin Dose 8 UNIT; Start 11/12/16 at 08:00 BLAS SOLANO Nov 13, 2016 15:40
--- NOTE | 2016-11-13 15:46 | PDOCDIS ---
Discharge Instructions CONDITION Patient Condition: Good HOME CARE INSTRUCTIONS: Diet Instructions: RegularSpecial Diet: low sodium diet ACTIVITY: Activity Restrictions: Slowly Increase Activity Rest between Activity Avoid heavy lifting Do not Drive Do not operate Machinery Do not operate Power Tool Avoid Heavy Housework Bathing Restrictions: Shower SCHOOL/WORK RELEASE May return to School/Work with: With Restrictions BLAS SOLANO Nov 13, 2016 15:46
[2016-11-13] MEDS: ATORVASTATIN 20 MG TAB PO SCH (20:46)
--- NOTE | 2016-11-14 17:50 | DS ---
Date/Time of Note Date/Time of Note DATE: 11/14/16 TIME: 17:48 Discharge Summary Admission/Discharge Info Admit Date/Time Nov 10, 2016 at 03:06 Discharge Date/Time Nov 13, 2016 at 21:35 Discharge Diagnosis GB syndrome Patient Condition: Good Consults neurology Procedures IVF infusions Hx of Present Illness 46 y/o male with rapid onset of generalized weakness, started LLE, ascending, electrical paresthesias, pain in extremities about 10 days ago. Slightly better now, no pain, strength is better UE. No B/B, SOB, dysarthria, dysphagia, diplopia, headache. Hospital Course 1. GB SYNDROME 2. DM, uncontrolled 3. HTN, controlled Home Meds Reported Medications Aspirin* (Aspirin* (EC)) 81 Mg Tablet.dr, 81 MG PO DAILY, TAB 11/10/16 Sitagliptin* (Januvia*) 50 Mg Tablet, 50 MG PO DAILY, #30 TAB 11/10/16 Linagliptin/Metformin HCl (Jentadueto Xr 2.5 mg-1,000 mg) 1 Each Tab.bp.24h, 1 EACH PO, TAB 11/10/16 Lisinopril* (Lisinopril*) 10 Mg Tablet, 10 MG PO DAILY, #30 TAB 11/10/16 Atorvastatin Calcium (Atorvastatin Calcium) 20 Mg Tablet, 20 MG PO QHS, #30 TAB 11/10/16 Empagliflozin (Jardiance) 10 Mg Tablet, 10 MG PO, TAB 11/10/16 Follow-up Plan ARU for mobility Primary Care Provider Care Physician No Primary Pending Labs Laboratory Tests Test 11/13/16 20:43 Bedside Glucose 231mg/dL (70-220) BLAS SOLANO Nov 14, 2016 17:50
== END 2016-11-13 21:35 | DRG 96 ==
LOC: MS1 03:06
PROVIDERS: ADMIT Internal Medicine Nephrology; ATTEND Internal Medicine Nephrology
PROC: 30233S1 Transfusion of Nonautologous Globulin into Peripheral Vein, Percutaneous Approach (ICD-10-PCS; 2016-11-10)
PROC: 009U3ZX Drainage of Spinal Canal, Percutaneous Approach, Diagnostic (ICD-10-PCS; principal; 2016-11-11)
PROC: B01BZZZ Fluoroscopy of Spinal Cord (ICD-10-PCS; 2016-11-11)
DX: G61.0 Guillain-Barre syndrome (principal); E11.65 Type 2 diabetes mellitus with hyperglycemia; I10 Essential (primary) hypertension; F17.210 Nicotine dependence, cigarettes, uncomplicated
CPT/HCPCS: 72141; 80053; 82945; 82962; 84157; 85025; 85610; 85651; 85730; 86038; 87081; 89050; 94640; 94664; 97110; 97116; 97164; 97166; 97530; J1566; J1100; J1815; J7030

== ENCOUNTER 2016-11-13 16:06 | Inpatient (IN) | payer BC ==
[~2016-11-13] VITALS: Ht 172.7 cm; Wt 64.0 kg
[~2016-11-13 16:06] MED LIST: ASPI-664 PO; ATOR20TA65 PO; EMPA10TA PO; LINA1TAB7 PO; LISI10TA2 PO; SITA50TA2 PO
[2016-11-13 21:58] VITALS: BP 117/70; PULSE 87; RESP 18
[2016-11-13 22:08] VITALS: Ht 172.7 cm; Wt 64.0 kg
[2016-11-13] MEDS ORDERED: GLUCOSE GEL 15 GRAM TUBE BUCCAL PRN (23:30)
[2016-11-13] MEDS ORDERED: GLUCOSE GEL 15 GRAM TUBE PO PRN ×2 (23:30)
[2016-11-13] MEDS ORDERED: GLUCAGON 1 MG INJ IM PRN (23:30)
[2016-11-13] MEDS ORDERED: BISACODYL (EC) 5 MG TAB PO PRN (23:45)
[2016-11-13] MEDS ORDERED: DOCUSATE SODIUM 100 MG CAP PO PRN (23:45)
[2016-11-14] MEDS: IPRATROPIUM (NEB) 0.5 MG/2.5 ML AMP INH SCH ×5 (01:53→20:11)
[2016-11-14] MEDS: ACCUCHECK AT 2AM (Patients on SS coverage) XX SCH (02:38)
[2016-11-14] MEDS: PANTOPRAZOLE (EC) 40 MG TAB PO SCH (06:25)
[2016-11-14 07:30] VITALS: BP 114/67; RESP 18
[2016-11-14] MEDS: JENTADUETO PO SCH ×2 (07:35→17:20)
[2016-11-14] MEDS: Insulin NOVOLOG SS MODERATE Algorithm (SS with meals and bedtime) SC SCH ×4 (07:35→20:41)
[2016-11-14 07:42] LABS: BASOPHIL # 0.1 10^3/ul (0.0-0.1); EOSINOPHILS # 0.5 10^3/ul (0.0-0.5); EOSINOPHILS % 5.9 % (0.0-7.0); HEMATOCRIT 42.5 % (42.0-52.0); LYMPHOCYTES # 2.3 10^3/ul (0.8-2.9); LYMPHOCYTES % 26.7 % (15.0-51.0); MEAN CORPUSCULAR HGB CONC 32.9 g/dl (32.0-37.0); MONOCYTES % 11.2 % (0.0-11.0); NEUTROPHIL # 4.7 10^3/ul (1.6-7.5); NEUTROPHILS % 54.6 % (39.0-77.0); PLATELET COUNT 327 10^3/UL (140-415); RED BLOOD COUNT 4.67 10^6/ul (4.70-6.10); RED CELL DISTRIBUTION WIDTH 12.7 % (11.5-14.5); WHITE BLOOD COUNT 8.6 10^3/ul (4.8-10.8)
--- NOTE | 2016-11-14 08:26 | CONS ---
Date/Time of Note Date/Time of Note DATE: 11/14/16 TIME: 08:24 Assessment/Plan Assessment/Plan Additional Assessment/Plan REHABILITATION POST-ADMISSION PHYSICIAN EVALUATION: REHABILITATION IMPAIRMENT CATEGORY: Guillian [place] Syndrome ACTIVE COMORBIDITIES: 1. Diabetes Mellitus 2. Hypertension 3. Impairments in self-care and mobility PLAN: The patient has been admitted for comprehensive interdisciplinary acute rehab and is anticipated to tolerate 3 hours of daily therapy in divided doses for at least 5/7 days a week. The treatment plan will include: 1. Physical therapy to focus on bed mobility, transfers, and household ambulation with the goal of having the patient reach a standby assist at the wheelchair level, minimal assist for ambulation. 2. Occupational therapy to focus on hygiene, grooming, dressing, bathing, and toileting activities with the goal of having the patient reach a standby assist level at the wheelchair level. 3. Rehabilitation nursing for carryover of therapeutic interventions, the goal of continent of bowel and bladder, patient and family education with regards to the aforementioned issues ESTIMATED LENGTH OF STAY: 14 days. DISPOSITION GOAL: Home. Rehabilitation Barrier: weakness Intervention for barrier: interdisciplinary rehabilitation I acknowledge that I performed a full physical examination on this patient within 24 hours of admission to the rehabilitation unit and believe the patient is a good candidate for comprehensive interdisciplinary rehab care and is anticipated to make reasonable goals in a reasonable period of time as outlined above. Consultation Date/Type/Reason Admit Date/Time Nov 13, 2016 at 21:52 Type of Consultation: Rehabilitation Reason for Consultation Rehabilitation Post Admission Physician Evaluation Hx of Present Illness Patient is a pleasant 46-year-old right-handed gentleman with a history of diabetes mellitus and hypertension who is admitted with rapid onset of a sending weakness in addition to electrical paresthesias. 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 He was treated with IVIG with some improvement in motor strength. Patient has been noted to have significant impairments in self-care and mobility as compared to baseline. Patient has been cleared to transfer to the rehabilitation unit for comprehensive interdisciplinary rehab care. Past Surgical History FUNCTIONAL HISTORY: Prior to recent events,patient was independent in self- care tasks and mobility. Currently, patient requires max for self-care and mobility tasks. I have reviewed the preadmission screen and the patient's current functional status is consistent with the preadmission screen. SOCIAL HISTORY: The patient lives at home and hopes to return there upon discharge. Past Surgical Hx: no surgical history Social History Smoking Status: Current every day smoker Exam/Review of Systems Vital Signs Vitals Vital Signs Date Time Temp Pulse Resp B/P Pulse Ox O2 Delivery O2 Flow Rate FiO2 11/13/16 21:58 98.7 87 18 117/70 97 Room Air Intake and Output 11/13/16 11/13/16 11/14/16 15:00 23:00 07:00 Intake Total 1040 ml Output Total 400 ml Balance 640 ml Exam Constitutional: alert, oriented, well developed Psych: nl mood/affect, no complaints Head: atraumatic, normocephalic Eyes: EOMI, nl conjunctiva, nl lids ENMT: nl external ears & nose, nl lips & teeth, nl nasal mucosa & septum Neck: non-tender, supple Respiratory: clear to auscultation, normal air movement Cardiovascular: nl pulses, regular rate and rhythm Gastrointestinal: nl liver, spleen, non-tender, soft Genitourinary - Female: nl adnexae, nl external genitalia Extremities: normal pulses Neurological: REHEATER HELPER II-XII intact, 3/5 motor strength R UE and LE 3-/5 L UE, L LE FUNCTIONAL: Max assist self care and mobility Results Result Diagram: 11/14/16626 Results 24 hrs Laboratory Tests Test 11/14/16 02:36 11/14/16 06:27 11/14/16 07:52 Bedside Glucose 168 125 White Blood Count 8.6 Red Blood Count 4.67 L Hemoglobin 14.0 Hematocrit 42.5 Mean Corpuscular Volume 91.0 Mean Corpuscular Hemoglobin 30.0 Mean Corpuscular Hemoglobin Concent 32.9 Red Cell Distribution Width 12.7 Platelet Count 327 Mean Platelet Volume 9.0 Neutrophils % 54.6 Lymphocytes % 26.7 Monocytes % 11.2 H Eosinophils % 5.9 Basophils % 1.0 Nucleated Red Blood Cells % 0.0 Neutrophils # 4.7 Lymphocytes # 2.3 Monocytes # 1.0 H Eosinophils # 0.5 Basophils # 0.1 Nucleated Red Blood Cells # 0.0 Medications Medications Current Medications Pantoprazole (Protonix Tab) 40 mg DAILY@06 PO Last administered on 11/14/16t 06: 25; Admin Dose 40 MG; Start 11/14/16 at 06:00 Insulin Glargine (Lantus) 8 unit BID@08,20 SC ; Start 11/14/16 at 08:00 Diagnostic Test (Pha) (Accu-Chek) 1 ea 02 XX Last administered on 11/14/16t 02: 38; Admin Dose 1 EA; Start 11/14/16 at 02:00 Lisinopril (Zestril) 10 mg DAILY PO ; Start 11/14/16 at 09:00 Miscellaneous Information 1 ea NOTE XX ; Start 11/13/16 at 23:30 Glucose (Glutose) 15 gm Q15M PRN PO DECREASED GLUCOSE; Start 11/13/16 at 23:30 Glucose (Glutose) 22.5 gm Q15M PRN PO DECREASED GLUCOSE; Start 11/13/16 at 23: 30 Glucagon (Glucagen) 1 mg Q15M PRN IM DECREASED GLUCOSE; Start 11/13/16 at 23:30 Glucose (Glutose) 15 gm Q15M PRN BUCCAL DECREASED GLUCOSE; Start 11/13/16 at 23 :30 Docusate Sodium (Colace) 100 mg TID PRN PO CONSTIPATION; Start 11/13/16 at 23: 45 Aspirin (Halfprin) 81 mg DAILY PO ; Start 11/14/16 at 09:00 Atorvastatin Calcium (Lipitor) 20 mg DAILY@21 PO ; Start 11/14/16 at 21:00 Bisacodyl (Dulcolax) 10 mg BID PRN PO CONSTIPATION; Start 11/13/16 at 23:45 FERNANDA MARIE MD Nov 14, 2016 08:25 FERNANDA MARIE MD Nov 14, 2016 08:25
[2016-11-14 08:37] LABS: ALBUMIN 3.9 g/dl (3.3-4.9); ALBUMIN/GLOBULIN RATIO 1.08; BILIRUBIN,INDIRECT 0.1 mg/dl (0-1.1); BILIRUBIN,TOTAL 0.1 mg/dl (0.2-1.3); CALCIUM 9.3 mg/dl (8.4-10.2); CREATININE 0.66 mg/dl (0.61-1.24); POTASSIUM 4.3 mmol/L (3.5-5.1); TOTAL PROTEIN 7.5 g/dl (6.1-8.1)
[2016-11-14] MEDS: LISINOPRIL 10 MG TAB PO SCH (08:37)
[2016-11-14] MEDS: ASPIRIN (EC) 81 MG TAB PO SCH (08:37)
[2016-11-14] MEDS: INSULIN GLARGINE [LANtus] 3 ML PEN SC SCH ×2 (08:40→20:41)
[2016-11-14 10:07] LABS: ADD UMIC NO; UR ASCORBIC ACID NEGATIVE (NEGATIVE); UR BACTERIA FEW /HPF (NONE SEEN); UR BILIRUBIN (Dip) NEGATIVE (NEGATIVE); UR BLOOD (Dip) NEGATIVE (NEGATIVE); UR CLARITY SLIGHTLY CLOUDY (CLEAR); UR COLOR YELLOW (YELLOW); UR GLUCOSE (Dip) 1+ mg/dL (NEGATIVE); UR KETONES (Dip) NEGATIVE (NEGATIVE); UR LEUKOCYTE ESTERASE (Dip) NEGATIVE Leu/ul (NEGATIVE); UR NITRITE (Dip) NEGATIVE (NEGATIVE); UR RBC 0 /HPF (0-5); UR SPECIFIC GRAVITY (Dip) 1.016 (1.003-1.030); UR TOTAL PROTEIN (Dip) NEGATIVE (NEGATIVE); UR UROBILINOGEN (Dip) NEGATIVE (NEGATIVE)
--- NOTE | 2016-11-14 13:33 | PN ---
Date/Time of Note Date/Time of Note DATE: 11/14/16 TIME: 13:31 Assessment/Plan VTE Prophylaxis VTE Prophylaxis Intervention: ambulation Lines/Catheters IV [facility] Saline Lock Assessment/Plan Chief Complaint/Hosp Course 1. Diabetes Mellitus, controlled 2. 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 continue current regime Subjective 24 Hr Interval Summary Musculoskeletal: restricted range of motion (left knee) Neurologic: focal-weakness (left leg) Exam/Review of Systems Vital Signs Vitals Vital Signs Date Time Temp Pulse Resp B/P Pulse Ox O2 Delivery O2 Flow Rate FiO2 11/14/16 08:17 77 20 97 21 11/13/16 21:58 98.7 117/70 Room Air Intake and Output 11/13/16 11/13/16 11/14/16 14:59 22:59 06:59 Intake Total 1040 ml Output Total 400 ml Balance 640 ml Exam Constitutional: alert, oriented Results Result Diagram: 11/14/1627 11/14/16 0627 Results 24 hrs Laboratory Tests Test 11/13/16 23:10 11/14/16 02:36 11/14/16 06:27 11/14/16 07:52 Urine Color YELLOW Urine Clarity SLIGHTLY CLOUDY A Urine pH 6.0 Urine Specific [place] 1.016 Urine Ketones NEGATIVE Urine Nitrite NEGATIVE Urine Bilirubin NEGATIVE Urine Urobilinogen NEGATIVE Urine Leukocyte Esterase NEGATIVE Urine Microscopic RBC 0 Urine Microscopic WBC 0 Urine Bacteria FEW A Urine Hemoglobin NEGATIVE Urine Glucose 1+ H Urine Total Protein NEGATIVE Bedside Glucose 168 125 White Blood Count 8.6 Red Blood Count 4.67 L Hemoglobin 14.0 Hematocrit 42.5 Mean Corpuscular Volume 91.0 Mean Corpuscular Hemoglobin 30.0 Mean Corpuscular Hemoglobin Concent 32.9 Red Cell Distribution Width 12.7 Platelet Count 327 Mean Platelet Volume 9.0 Neutrophils % 54.6 Lymphocytes % 26.7 Monocytes % 11.2 H Eosinophils % 5.9 Basophils % 1.0 Nucleated Red Blood Cells % 0.0 Neutrophils # 4.7 Lymphocytes # 2.3 Monocytes # 1.0 H Eosinophils # 0.5 Basophils # 0.1 Nucleated Red Blood Cells # 0.0 Sodium Level 139 Potassium Level 4.3 Chloride Level 96 L Carbon Dioxide Level 27 Anion Gap 20 H Blood Urea Nitrogen 22 H Creatinine 0.66 Glucose Level 133 Calcium Level 9.3 Total Bilirubin 0.1 L Direct Bilirubin 0.00 Indirect Bilirubin 0.1 Aspartate Amino Transf (AST/SGOT) 36 Alanine Aminotransferase (ALT/SGPT) 42 Alkaline Phosphatase 72 Total Protein 7.5 Albumin 3.9 Globulin 3.60 H Albumin/Globulin Ratio 1.08 Test 11/14/16 12:23 Bedside Glucose 102 Medications Medications Current Medications Pantoprazole (Protonix Tab) 40 mg DAILY@06 PO Last administered on 11/14/16 06: 25; Admin Dose 40 MG; Start 11/14/16 at 06:00 Insulin Glargine (Lantus) 8 unit BID@08,20 SC Last administered on 11/14/16 08: 40; Admin Dose 8 UNIT; Start 11/14/16 at 08:00 Diagnostic Test (Pha) (Accu-Chek) 1 ea 02 XX Last administered on 11/14/16 02: 38; Admin Dose 1 EA; Start 11/14/16 at 02:00 Lisinopril (Zestril) 10 mg DAILY PO Last administered on 11/14/16 08:37; Admin Dose 10 MG; Start 11/14/16 at 09:00 Miscellaneous Information 1 ea NOTE XX ; Start 11/13/16 at 23:30 Glucose (Glutose) 15 gm Q15M PRN PO DECREASED GLUCOSE; Start 11/13/16 at 23:30 Glucose (Glutose) 22.5 gm Q15M PRN PO DECREASED GLUCOSE; Start 11/13/16 at 23: 30 Glucagon (Glucagen) 1 mg Q15M PRN IM DECREASED GLUCOSE; Start 11/13/16 at 23:30 Glucose (Glutose) 15 gm Q15M PRN BUCCAL DECREASED GLUCOSE; Start 11/13/16 at 23 :30 Docusate Sodium (Colace) 100 mg TID PRN PO CONSTIPATION; Start 11/13/16 at 23: 45 Aspirin (Halfprin) 81 mg DAILY PO Last administered on 11/14/16 08:37; Admin Dose 81 MG; Start 11/14/16 at 09:00 Atorvastatin Calcium (Lipitor) 20 mg DAILY@21 PO ; Start 11/14/16 at 21:00 Bisacodyl (Dulcolax) 10 mg BID PRN PO CONSTIPATION; Start 11/13/16 at 23:45 BLAS SOLANO Nov 14, 2016 13:33
--- NOTE | 2016-11-14 14:20 | HP ---
Date/Time of Note Date/Time of Note DATE: 11/14/16 TIME: 14:16 Assessment/Plan VTE Prophylaxis VTE Prophylaxis Intervention: ambulation Lines/Catheters [facility] Saline Lock Assessment/Plan Chief Complaint/Hosp Course 1. Diabetes Mellitus, controlled 2. 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 Admit to ARU for future management of mobility HPI/ROS Admit Date/Time Admit Date/Time Nov 13, 2016 at 21:52 Hx of Present Illness 46 yo male pt with lower extremities weakness for 3 days. Reported recent travel to [facility]. Was transferred to [facility] for further management. Found GB syndrome. After treatment with IVF, there is an improvement. ROS Constitutional: fatigue Respiratory: no complaints (left leg) Cardiovascular: no complaints Gastrointestinal: no complaints Musculoskeletal: restricted range of motion (left knee) Neurologic: focal-weakness (left leg) PMH/Family/Social Past Medical History Medical History: diabetes, high cholesterol, hypertension Past Surgical History Past Surgical Hx: no surgical history Family History Significant Family History: no pertinent family hx Social History Alcohol Use: none Smoking Status: Current every day smoker Drug Use: none Exam/Review of Systems Vital Signs Vitals Vital Signs Date Time Temp Pulse Resp B/P Pulse Ox O2 Delivery O2 Flow Rate FiO2 11/14/16 08:17 77 20 97 21 11/13/16 21:58 98.7 117/70 Room Air Intake and Output 11/13/16 11/13/16 11/14/16 15:00 23:00 07:00 Intake Total 1040 ml Output Total 400 ml Balance 640 ml Exam Constitutional: alert, oriented, well developed Neck: supple Cardiovascular: regular rate and rhythm Gastrointestinal: soft Musculoskeletal: muscle weakness (left leg) Labs Result Diagram: 11/14/1662611/14/16626 Medications Medications Current Medications Pantoprazole (Protonix Tab) 40 mg DAILY@06 PO Last administered on 11/14/16 06: 25; Admin Dose 40 MG; Start 11/14/16 at 06:00 Insulin Glargine (Lantus) 8 unit BID@08,20 SC Last administered on 11/14/16 08: 40; Admin Dose 8 UNIT; Start 11/14/16 at 08:00 Diagnostic Test (Pha) (Accu-Chek) 1 ea 02 XX Last administered on 11/14/16 02: 38; Admin Dose 1 EA; Start 11/14/16 at 02:00 Lisinopril (Zestril) 10 mg DAILY PO Last administered on 11/14/16 08:37; Admin Dose 10 MG; Start 11/14/16 at 09:00 Miscellaneous Information 1 ea NOTE XX ; Start 11/13/16 at 23:30 Glucose (Glutose) 15 gm Q15M PRN PO DECREASED GLUCOSE; Start 11/13/16 at 23:30 Glucose (Glutose) 22.5 gm Q15M PRN PO DECREASED GLUCOSE; Start 11/13/16 at 23: 30 Glucagon (Glucagen) 1 mg Q15M PRN IM DECREASED GLUCOSE; Start 11/13/16 at 23:30 Glucose (Glutose) 15 gm Q15M PRN BUCCAL DECREASED GLUCOSE; Start 11/13/16 at 23 :30 Docusate Sodium (Colace) 100 mg TID PRN PO CONSTIPATION; Start 11/13/16 at 23: 45 Aspirin (Halfprin) 81 mg DAILY PO Last administered on 11/14/16 08:37; Admin Dose 81 MG; Start 11/14/16 at 09:00 Atorvastatin Calcium (Lipitor) 20 mg DAILY@21 PO ; Start 11/14/16 at 21:00 Bisacodyl (Dulcolax) 10 mg BID PRN PO CONSTIPATION; Start 11/13/16 at 23:45 BLAS SOLANO Nov 14, 2016 14:19
[2016-11-14 20:15] VITALS: BP 108/70; RESP 18
[2016-11-14] MEDS: ATORVASTATIN 20 MG TAB PO SCH (20:32)
[2016-11-15] MEDS: ACCUCHECK AT 2AM (Patients on SS coverage) XX SCH (02:00)
[2016-11-15] MEDS: IPRATROPIUM (NEB) 0.5 MG/2.5 ML AMP INH SCH ×4 (02:00→19:14)
[2016-11-15] MEDS: PANTOPRAZOLE (EC) 40 MG TAB PO SCH (06:47)
[2016-11-15] MEDS: Insulin NOVOLOG SS MODERATE Algorithm (SS with meals and bedtime) SC SCH ×4 (07:35→20:18)
[2016-11-15] MEDS: INSULIN GLARGINE [LANtus] 3 ML PEN SC SCH ×2 (08:26→20:25)
[2016-11-15] MEDS: JENTADUETO PO SCH ×2 (08:27→17:18)
[2016-11-15] MEDS: ASPIRIN (EC) 81 MG TAB PO SCH (08:27)
[2016-11-15] MEDS: LISINOPRIL 10 MG TAB PO SCH (08:29)
[2016-11-15] MEDS ORDERED: LACTULOSE 30ML CUP PO PRN (09:11)
[2016-11-15] MEDS ORDERED: BISACODYL 10 MG SUPP PR PRN (09:30)
[2016-11-15] MEDS ORDERED: ACETAMINOPHEN 325 MG TAB PO PRN (09:30)
[2016-11-15] MEDS ORDERED: MAGNESIUM HYDROXIDE 30ML CUP PO PRN (09:30)
[2016-11-15] MEDS: CEFTRIAXONE 1 GM/50 ML (PMX) 50 ML IVPB SCH (17:04)
--- NOTE | 2016-11-15 17:27 | PN ---
Date/Time of Note Date/Time of Note DATE: 11/15/16 TIME: 17:25 Assessment/Plan VTE Prophylaxis VTE Prophylaxis Intervention: other Lines/Catheters IV [facility] Type (from [facility]): Saline Lock Assessment/Plan Chief Complaint/Hosp Course A/P UTI GB SYNDROME PLAN PER NEURO ANTIBIOTIC Problems: Subjective 24 Hr Interval Summary Gastrointestinal: no complaints Genitourinary: no complaints Exam/Review of Systems Vital Signs Vitals Vital Signs Date Time Temp Pulse Resp B/P Pulse Ox O2 Delivery O2 Flow Rate FiO2 11/15/16 14:10 81 16 97 21 11/14/16 20:15 98.9 108/70 11/13/16 21:58 Room Air Intake and Output 11/14/16 11/14/16 11/15/16 15:00 23:00 07:00 Intake Total 1420 ml 420 ml Output Total 1420 ml 1300 ml Balance 0 ml -880 ml Exam Respiratory: clear to auscultation Cardiovascular: regular rate and rhythm Gastrointestinal: soft Neurological: other (weakness+) Results Result Diagram: 11/14/1662611/14/16626 Results 24 hrs Laboratory Tests Test 11/14/16 20:34 11/15/16 07:49 11/15/16 12:09 Bedside Glucose 129 119 133 Medications Medications Current Medications Pantoprazole (Protonix Tab) 40 mg DAILY@06 PO Last administered on 11/15/16 06: 47; Admin Dose 40 MG; Start 11/14/16 at 06:00 Insulin Glargine (Lantus) 8 unit BID@08,20 SC Last administered on 11/15/16 08: 26; Admin Dose 8 UNIT; Start 11/14/16 at 08:00 Diagnostic Test (Pha) (Accu-Chek) 1 ea 02 XX Last administered on 11/14/16 02: 38; Admin Dose 1 EA; Start 11/14/16 at 02:00 Lisinopril (Zestril) 10 mg DAILY PO Last administered on 11/14/16 08:37; Admin Dose 10 MG; Start 11/14/16 at 09:00 Miscellaneous Information 1 ea NOTE XX ; Start 11/13/16 at 23:30 Glucose (Glutose) 15 gm Q15M PRN PO DECREASED GLUCOSE; Start 11/13/16 at 23:30 Glucose (Glutose) 22.5 gm Q15M PRN PO DECREASED GLUCOSE; Start 11/13/16 at 23: 30 Glucagon (Glucagen) 1 mg Q15M PRN IM DECREASED GLUCOSE; Start 11/13/16 at 23:30 Glucose (Glutose) 15 gm Q15M PRN BUCCAL DECREASED GLUCOSE; Start 11/13/16 at 23 :30 Docusate Sodium (Colace) 100 mg TID PRN PO CONSTIPATION Last administered on 08:27; Admin Dose 100 MG; Start 11/13/16 at 23:45 Aspirin (Halfprin) 81 mg DAILY PO Last administered on 11/15/16 08:27; Admin Dose 81 MG; Start 11/14/16 at 09:00 Atorvastatin Calcium (Lipitor) 20 mg DAILY@21 PO Last administered on 11/14/16 20:32; Admin Dose 20 MG; Start 11/14/16 at 21:00 Bisacodyl (Dulcolax) 10 mg BID PRN PO CONSTIPATION Last administered on 08:27; Admin Dose 10 MG; Start 11/13/16 at 23:45 Docusate Sodium (Colace) 100 mg BID PO ; Start 11/15/16 at 21:00 Senna (Senokot) 1 tab QHS PO ; Start 11/15/16 at 21:00 Acetaminophen (Tylenol Tab) 650 mg Q4H PRN PO PAIN; Start 11/15/16 at 09:30 Bisacodyl (Dulcolax Supp) 10 mg DAILY PRN [place] CONSTIPATION; Start 11/15/16 at 09: 30 Magnesium Hydroxide (Milk Of Mag) 30 ml BID PRN PO CONSTIPATION; Start 11/15/16 at 09:30 Lactulose 20 gm 20 gm DAILY PRN PO CONSTIPATION; Start 11/15/16 at 09:11 Ceftriaxone Sodium (Rocephin) 50 ml @ 100 mls/hr Q24H IVPB Last administered on 11/15/16 17:04; Admin Dose 100 MLS/HR; Start 11/15/16 at 17:00 NYASIA JOSEPH MD Nov 15, 2016 17:27
[2016-11-15 20:00] VITALS: BP 110/69; RESP 18
[2016-11-15] MEDS: SENNA TAB PO SCH (20:18)
[2016-11-15] MEDS: ATORVASTATIN 20 MG TAB PO SCH (20:18)
[2016-11-15] MEDS: DOCUSATE SODIUM 100 MG CAP PO SCH (20:18)
[2016-11-16] MEDS: IPRATROPIUM (NEB) 0.5 MG/2.5 ML AMP INH SCH ×4 (01:38→19:38)
[2016-11-16] MEDS: ACCUCHECK AT 2AM (Patients on SS coverage) XX SCH (02:00)
[2016-11-16] MEDS: PANTOPRAZOLE (EC) 40 MG TAB PO SCH (06:13)
[2016-11-16 07:30] VITALS: BP 111/73; RESP 18
[2016-11-16] MEDS: Insulin NOVOLOG SS MODERATE Algorithm (SS with meals and bedtime) SC SCH ×4 (07:35→20:42)
[2016-11-16] MEDS: JENTADUETO PO SCH ×2 (07:35→18:02)
[2016-11-16] MEDS: INSULIN GLARGINE [LANtus] 3 ML PEN SC SCH ×2 (08:04→20:25)
[2016-11-16] MEDS: LISINOPRIL 10 MG TAB PO SCH (08:54)
[2016-11-16] MEDS: ASPIRIN (EC) 81 MG TAB PO SCH (08:55)
[2016-11-16] MEDS: DOCUSATE SODIUM 100 MG CAP PO SCH ×2 (08:55→20:20)
--- NOTE | 2016-11-16 09:11 | CONS ---
Date/Time of Note Date/Time of Note DATE: 11/16/16 TIME: 09:10 Consult Date/Type/Reason Admit Date/Time Nov 13, 2016 at 21:52 Initial Consult Date Type of Consultation: Rehabilitation Objective Vital Signs Date Time Temp Pulse Resp B/P Pulse Ox O2 Delivery O2 Flow Rate FiO2 11/15/16 20:00 98.5 87 18 110/69 99 11/15/16 19:14 21 11/13/16 21:58 Room Air Intake and Output 11/15/16 11/15/16 11/16/16 15:00 23:00 07:00 Intake Total 50 ml Output Total 850 ml Balance 50 ml -850 ml INTERDISCIPLINARY TEAM CONFERENCE BOWEL- Cont BLADDER-Cont SKIN- intact OT- DRESSING-max BATHING-max TOILETING-max PT- BED MOBILITY-max TRANSFERS-max AMBULATION-max W.C. MOBILITY-mod/max A/P- Interdisciplinary team conference held today. Please see interdisciplinary sheet. Working toward d.c. on 11/27 with post discharge follow up of physical therapy, occupational therapy. Results/Medications Result Diagram: 11/14/1627 11/14/16626 Results 24 hrs Laboratory Tests Test 11/15/16 12:09 11/15/16 17:29 11/15/16 20:16 11/16/16 08:00 Bedside Glucose 133 183 92 112 Medications Current Medications Pantoprazole (Protonix Tab) 40 mg DAILY@06 PO Last administered on 11/16/16 06: 13; Admin Dose 40 MG; Start 11/14/16 at 06:00 Insulin Glargine (Lantus) 8 unit BID@08,20 SC Last administered on 11/16/16 08: 04; Admin Dose 8 UNIT; Start 11/14/16 at 08:00 Diagnostic Test (Pha) (Accu-Chek) 1 ea 02 XX Last administered on 11/14/16 02: 38; Admin Dose 1 EA; Start 11/14/16 at 02:00 Lisinopril (Zestril) 10 mg DAILY PO Last administered on 11/16/16 08:54; Admin Dose 10 MG; Start 11/14/16 at 09:00 Miscellaneous Information 1 ea NOTE XX ; Start 11/13/16 at 23:30 Glucose (Glutose) 15 gm Q15M PRN PO DECREASED GLUCOSE; Start 11/13/16 at 23:30 Glucose (Glutose) 22.5 gm Q15M PRN PO DECREASED GLUCOSE; Start 11/13/16 at 23: 30 Glucagon (Glucagen) 1 mg Q15M PRN IM DECREASED GLUCOSE; Start 11/13/16 at 23:30 Glucose (Glutose) 15 gm Q15M PRN BUCCAL DECREASED GLUCOSE; Start 11/13/16 at 23 :30 Docusate Sodium (Colace) 100 mg TID PRN PO CONSTIPATION Last administered on 08:27; Admin Dose 100 MG; Start 11/13/16 at 23:45 Aspirin (Halfprin) 81 mg DAILY PO Last administered on 11/16/16 08:55; Admin Dose 81 MG; Start 11/14/16 at 09:00 Atorvastatin Calcium (Lipitor) 20 mg DAILY@21 PO Last administered on 11/15/16 20:18; Admin Dose 20 MG; Start 11/14/16 at 21:00 Bisacodyl (Dulcolax) 10 mg BID PRN PO CONSTIPATION Last administered on 08:27; Admin Dose 10 MG; Start 11/13/16 at 23:45 Docusate Sodium (Colace) 100 mg BID PO Last administered on 11/16/16 08:55; Admin Dose 100 MG; Start 11/15/16 at 21:00 Senna (Senokot) 1 tab QHS PO Last administered on 11/15/16 20:18; Admin Dose 1 TAB; Start 11/15/16 at 21:00 Acetaminophen (Tylenol Tab) 650 mg Q4H PRN PO PAIN; Start 11/15/16 at 09:30 Bisacodyl (Dulcolax Supp) 10 mg DAILY PRN [place] CONSTIPATION; Start 11/15/16 at 09: 30 Magnesium Hydroxide (Milk Of Mag) 30 ml BID PRN PO CONSTIPATION; Start 11/15/16 at 09:30 Lactulose 20 gm 20 gm DAILY PRN PO CONSTIPATION; Start 11/15/16 at 09:11 Ceftriaxone Sodium (Rocephin) 50 ml @ 100 mls/hr Q24H IVPB Last administered on 11/15/16 17:04; Admin Dose 100 MLS/HR; Start 11/15/16 at 17:00 Assessment/Plan Chief Complaint/Hosp Course Patient is a pleasant 46-year-old right-handed gentleman with a history of diabetes mellitus and hypertension who is admitted with rapid onset of a sending weakness in addition to electrical paresthesias. 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 He was treated with IVIG with some improvement in motor strength. Patient has been noted to have significant impairments in self-care and mobility as compared to baseline. Patient has been cleared to transfer to the rehabilitation unit for comprehensive interdisciplinary rehab care. Problems: FERNANDA MARIE MD Nov 16, 2016 09:11
--- NOTE | 2016-11-16 12:25 | PN ---
Date/Time of Note Date/Time of Note DATE: 11/16/16 TIME: 12:24 Assessment/Plan VTE Prophylaxis VTE Prophylaxis Intervention: ambulation Lines/Catheters [facility]from [facility] Saline Lock Assessment/Plan Chief Complaint/Hosp Course 1. Diabetes Mellitus, controlled 2. 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 continue rehabilitation Subjective 24 Hr Interval Summary Constitutional: improved, no complaints Neurologic: focal-weakness (left leg) Exam/Review of Systems Vital Signs Vitals Vital Signs Date Time Temp Pulse Resp B/P Pulse Ox O2 Delivery O2 Flow Rate FiO2 11/15/16 20:00 98.5 87 18 110/69 99 11/15/16 19:14 21 11/13/16 21:58 Room Air Intake and Output 11/15/16 11/15/16 11/16/16 15:00 23:00 07:00 Intake Total 50 ml Output Total 850 ml Balance 50 ml -850 ml Exam Constitutional: alert, oriented Psych: no complaints Head: normocephalic Eyes: nl conjunctiva Respiratory: clear to auscultation Cardiovascular: regular rate and rhythm Results Result Diagram: 11/14/1662611/14/16 0627 Results 24 hrs Laboratory Tests Test 11/15/16 17:29 11/15/16 20:16 11/16/16 08:00 Bedside Glucose 183 92 112 Medications Medications Current Medications Pantoprazole (Protonix Tab) 40 mg DAILY@06 PO Last administered on 11/16/16 06: 13; Admin Dose 40 MG; Start 11/14/16 at 06:00 Insulin Glargine (Lantus) 8 unit BID@08,20 SC Last administered on 11/16/16 08: 04; Admin Dose 8 UNIT; Start 11/14/16 at 08:00 Diagnostic Test (Pha) (Accu-Chek) 1 ea 02 XX Last administered on 11/14/16 02: 38; Admin Dose 1 EA; Start 11/14/16 at 02:00 Lisinopril (Zestril) 10 mg DAILY PO Last administered on 11/16/16 08:54; Admin Dose 10 MG; Start 11/14/16 at 09:00 Miscellaneous Information 1 ea NOTE XX ; Start 11/13/16 at 23:30 Glucose (Glutose) 15 gm Q15M PRN PO DECREASED GLUCOSE; Start 11/13/16 at 23:30 Glucose (Glutose) 22.5 gm Q15M PRN PO DECREASED GLUCOSE; Start 11/13/16 at 23: 30 Glucagon (Glucagen) 1 mg Q15M PRN IM DECREASED GLUCOSE; Start 11/13/16 at 23:30 Glucose (Glutose) 15 gm Q15M PRN BUCCAL DECREASED GLUCOSE; Start 11/13/16 at 23 :30 Docusate Sodium (Colace) 100 mg TID PRN PO CONSTIPATION Last administered on 08:27; Admin Dose 100 MG; Start 11/13/16 at 23:45 Aspirin (Halfprin) 81 mg DAILY PO Last administered on 11/16/16 08:55; Admin Dose 81 MG; Start 11/14/16 at 09:00 Atorvastatin Calcium (Lipitor) 20 mg DAILY@21 PO Last administered on 11/15/16 20:18; Admin Dose 20 MG; Start 11/14/16 at 21:00 Bisacodyl (Dulcolax) 10 mg BID PRN PO CONSTIPATION Last administered on 08:27; Admin Dose 10 MG; Start 11/13/16 at 23:45 Docusate Sodium (Colace) 100 mg BID PO Last administered on 11/16/16 08:55; Admin Dose 100 MG; Start 11/15/16 at 21:00 Senna (Senokot) 1 tab QHS PO Last administered on 11/15/16 20:18; Admin Dose 1 TAB; Start 11/15/16 at 21:00 Acetaminophen (Tylenol Tab) 650 mg Q4H PRN PO PAIN; Start 11/15/16 at 09:30 Bisacodyl (Dulcolax Supp) 10 mg DAILY PRN [place] CONSTIPATION; Start 11/15/16 at 09: 30 Magnesium Hydroxide (Milk Of Mag) 30 ml BID PRN PO CONSTIPATION; Start 11/15/16 at 09:30 Lactulose 20 gm 20 gm DAILY PRN PO CONSTIPATION; Start 11/15/16 at 09:11 Ceftriaxone Sodium (Rocephin) 50 ml @ 100 mls/hr Q24H IVPB Last administered on 11/15/16 17:04; Admin Dose 100 MLS/HR; Start 7/2/17 at 17:00 BLAS SOLANO Nov 16, 2016 12:25
--- NOTE | 2016-11-16 15:19 | CONS ---
Date/Time of Note Date/Time of Note DATE: 11/16/16 TIME: 15:13 Assessment/Plan Assessment/Plan Chief Complaint/Hosp Course NEUROLOGIC: He is awake, alert, and oriented x3 with fluent speech. Cranial nerve examination shows intact visual ventura bilaterally. Pupils round, reactive to light from 3 to 2 mm bilaterally. Extraocular movements intact without nystagmus. Symmetrical face. Preserved facial strength and sensation. Tongue is in midline. Palate elevates symmetrically. Motor strength examination 3/5 UE, RLE, 3/5 LLE. Normal bulk, decreased tone. Sensory examination shows diminution of perception of pinprick and vibration in bilateral hands and forearms and feet with forelegs. Deep tendon reflexes absent in extremities. Downgoing toes bilaterally. Coordination preserved on [id number] testing. No dysmetria or tremor. A/P: Guillain-Fresno syndrome. S/p IVIG x 4 days. Cont current rehab therapies. Problems: Consultation Date/Type/Reason Admit Date/Time Nov 13, 2016 at 21:52 Type of Consultation: neuro Hx of Present Illness 46 y/o male seen in [facility] with rapid onset of generalized weakness, started LLE, ascending, electrical paresthesias, pain in extremities about 2 weeks ago. S/p IVIG x 4 days, strength is improving. Now getting therapies in rehab. No B/ B, SOB, dysarthria, dysphagia, diplopia, headache. LP elevated protein, some pleocytosis Constitutional: improved, no complaints Respiratory: no complaints (left leg) Cardiovascular: no complaints Gastrointestinal: no complaints Genitourinary: no complaints Musculoskeletal: restricted range of motion (left knee) Neurologic: focal-weakness (left leg) Psychological: no complaints Past Medical History Medical History: diabetes, high cholesterol, hypertension Past Surgical History Past Surgical Hx: no surgical history Family History Significant Family History: no pertinent family hx Social History Alcohol Use: none Smoking Status: Current every day smoker Drug Use: none Exam/Review of Systems Vital Signs Vitals Vital Signs Date Time Temp Pulse Resp B/P Pulse Ox O2 Delivery O2 Flow Rate FiO2 11/16/16 14:06 90 20 98 21 11/16/16 07:30 98.4 111/73 11/13/16 21:58 Room Air Intake and Output 11/15/16 11/15/16 11/16/16 15:00 23:00 07:00 Intake Total 50 ml Output Total 850 ml Balance 50 ml -850 ml Exam Constitutional: alert, oriented, well developed Head: atraumatic, normocephalic Neck: non-tender, supple Respiratory: clear to auscultation Cardiovascular: regular rate and rhythm Gastrointestinal: soft Results Result Diagram: 11/14/1627 11/14/1627 Results 24 hrs Laboratory Tests Test 11/15/16 17:29 11/15/16 20:16 11/16/16 08:00 11/16/16 12:21 Bedside Glucose 183 92 112 147 Medications Medications Current Medications Pantoprazole (Protonix Tab) 40 mg DAILY@06 PO Last administered on 11/16/16 06: 13; Admin Dose 40 MG; Start 11/14/16 at 06:00 Insulin Glargine (Lantus) 8 unit BID@08,20 SC Last administered on 11/16/16 08: 04; Admin Dose 8 UNIT; Start 11/14/16 at 08:00 Diagnostic Test (Pha) (Accu-Chek) 1 ea 02 XX Last administered on 11/14/16 02: 38; Admin Dose 1 EA; Start 11/14/16 at 02:00 Lisinopril (Zestril) 10 mg DAILY PO Last administered on 11/16/16 08:54; Admin Dose 10 MG; Start 11/14/16 at 09:00 Miscellaneous Information 1 ea NOTE XX ; Start 11/13/16 at 23:30 Glucose (Glutose) 15 gm Q15M PRN PO DECREASED GLUCOSE; Start 11/13/16 at 23:30 Glucose (Glutose) 22.5 gm Q15M PRN PO DECREASED GLUCOSE; Start 11/13/16 at 23: 30 Glucagon (Glucagen) 1 mg Q15M PRN IM DECREASED GLUCOSE; Start 11/13/16 at 23:30 Glucose (Glutose) 15 gm Q15M PRN BUCCAL DECREASED GLUCOSE; Start 11/13/16 at 23 :30 Docusate Sodium (Colace) 100 mg TID PRN PO CONSTIPATION Last administered on 08:27; Admin Dose 100 MG; Start 11/13/16 at 23:45 Aspirin (Halfprin) 81 mg DAILY PO Last administered on 11/16/16 08:55; Admin Dose 81 MG; Start 11/14/16 at 09:00 Atorvastatin Calcium (Lipitor) 20 mg DAILY@21 PO Last administered on 11/15/16 20:18; Admin Dose 20 MG; Start 11/14/16 at 21:00 Bisacodyl (Dulcolax) 10 mg BID PRN PO CONSTIPATION Last administered on 08:27; Admin Dose 10 MG; Start 11/13/16 at 23:45 Docusate Sodium (Colace) 100 mg BID PO Last administered on 11/16/16 08:55; Admin Dose 100 MG; Start 11/15/16 at 21:00 Senna (Senokot) 1 tab QHS PO Last administered on 11/15/16 20:18; Admin Dose 1 TAB; Start 11/15/16 at 21:00 Acetaminophen (Tylenol Tab) 650 mg Q4H PRN PO PAIN; Start 11/15/16 at 09:30 Bisacodyl (Dulcolax Supp) 10 mg DAILY PRN [place] CONSTIPATION; Start 11/15/16 at 09: 30 Magnesium Hydroxide (Milk Of Mag) 30 ml BID PRN PO CONSTIPATION; Start 11/15/16 at 09:30 Lactulose 20 gm 20 gm DAILY PRN PO CONSTIPATION; Start 11/15/16 at 09:11 Ceftriaxone Sodium (Rocephin) 50 ml @ 100 mls/hr Q24H IVPB Last administered on 11/15/16 17:04; Admin Dose 100 MLS/HR; Start 11/15/16 at 17:00 DEMETRICE GUADALUPE MD Nov 16, 2016 15:19
[2016-11-16] MEDS: CEFTRIAXONE 1 GM/50 ML (PMX) 50 ML IVPB SCH (17:22)
[2016-11-16] MEDS: HYDROCODONE/APAP (5/325) TAB PO PRN (17:25)
[2016-11-16] MEDS ORDERED: CIPROFLOXACIN 250 MG TAB PO SCH (18:00)
[2016-11-16 20:00] VITALS: BP 107/74; RESP 18
[2016-11-16] MEDS: SENNA TAB PO SCH (20:20)
[2016-11-16] MEDS: ATORVASTATIN 20 MG TAB PO SCH (20:20)
[2016-11-17] MEDS: IPRATROPIUM (NEB) 0.5 MG/2.5 ML AMP INH SCH ×3 (00:54→20:00)
[2016-11-17] MEDS: ACCUCHECK AT 2AM (Patients on SS coverage) XX SCH (02:00)
[2016-11-17] MEDS: PANTOPRAZOLE (EC) 40 MG TAB PO SCH (06:33)
[2016-11-17] MEDS: HYDROCODONE/APAP (5/325) TAB PO PRN (07:21)
[2016-11-17] MEDS: Insulin NOVOLOG SS MODERATE Algorithm (SS with meals and bedtime) SC SCH ×4 (07:35→20:40)
[2016-11-17 07:39] VITALS: BP 99/65; RESP 18
[2016-11-17] MEDS: JENTADUETO PO SCH ×2 (08:44→17:17)
[2016-11-17] MEDS: ASPIRIN (EC) 81 MG TAB PO SCH (08:44)
[2016-11-17] MEDS: DOCUSATE SODIUM 100 MG CAP PO SCH ×2 (08:44→20:35)
[2016-11-17] MEDS: INSULIN GLARGINE [LANtus] 3 ML PEN SC SCH ×2 (08:49→20:40)
[2016-11-17] MEDS: LISINOPRIL 10 MG TAB PO SCH (08:50)
[2016-11-17] MEDS ORDERED: ONDANSETRON 4 MG INJ IV PRN (10:00)
--- NOTE | 2016-11-17 10:42 | CONS ---
Date/Time of Note Date/Time of Note DATE: 11/17/16 TIME: 10:41 Consult Date/Type/Reason Admit Date/Time Nov 13, 2016 at 21:52 Type of Consultation: neuro Subjective Nausea vomiting this morning Objective Lungs clear anteriorly abdomen soft Min assist ambulation Vital Signs Date Time Temp Pulse Resp B/P Pulse Ox O2 Delivery O2 Flow Rate FiO2 11/17/16 09:30 79 17 97 21 11/17/16 07:39 98.3 99/65 11/13/16 21:58 Room Air Intake and Output 11/16/16 11/16/16 11/17/16 15:00 23:00 07:00 Intake Total 1260 ml 450 ml Output Total 941 ml 950 ml Balance 319 ml -500 ml Results/Medications Result Diagram: 11/14/1662611/14/16626 Results 24 hrs Laboratory Tests Test 11/16/16 12:21 11/16/16 17:38 11/16/16 20:18 11/17/16 07:55 Bedside Glucose 147 236 H 175 113 Medications Current Medications Pantoprazole (Protonix Tab) 40 mg DAILY@06 PO Last administered on 11/17/16 06: 33; Admin Dose 40 MG; Start 11/14/16 at 06:00 Insulin Glargine (Lantus) 8 unit BID@08,20 SC Last administered on 11/17/16 08: 49; Admin Dose 8 UNIT; Start 11/14/16 at 08:00 Diagnostic Test (Pha) (Accu-Chek) 1 ea 02 XX Last administered on 11/14/16 02: 38; Admin Dose 1 EA; Start 11/14/16 at 02:00 Lisinopril (Zestril) 10 mg DAILY PO Last administered on 11/16/16 08:54; Admin Dose 10 MG; Start 11/14/16 at 09:00 Miscellaneous Information 1 ea NOTE XX ; Start 11/13/16 at 23:30 Glucose (Glutose) 15 gm Q15M PRN PO DECREASED GLUCOSE; Start 11/13/16 at 23:30 Glucose (Glutose) 22.5 gm Q15M PRN PO DECREASED GLUCOSE; Start 11/13/16 at 23: 30 Glucagon (Glucagen) 1 mg Q15M PRN IM DECREASED GLUCOSE; Start 11/13/16 at 23:30 Glucose (Glutose) 15 gm Q15M PRN BUCCAL DECREASED GLUCOSE; Start 11/13/16 at 23 :30 Docusate Sodium (Colace) 100 mg TID PRN PO CONSTIPATION Last administered on 08:27; Admin Dose 100 MG; Start 11/13/16 at 23:45 Aspirin (Halfprin) 81 mg DAILY PO Last administered on 11/17/16 08:44; Admin Dose 81 MG; Start 11/14/16 at 09:00 Atorvastatin Calcium (Lipitor) 20 mg DAILY@21 PO Last administered on 11/16/16 20:20; Admin Dose 20 MG; Start 11/14/16 at 21:00 Bisacodyl (Dulcolax) 10 mg BID PRN PO CONSTIPATION Last administered on 08:27; Admin Dose 10 MG; Start 11/13/16 at 23:45 Docusate Sodium (Colace) 100 mg BID PO Last administered on 11/17/16 08:44; Admin Dose 100 MG; Start 11/15/16 at 21:00 Senna (Senokot) 1 tab QHS PO Last administered on 11/16/16 20:20; Admin Dose 1 TAB; Start 11/15/16 at 21:00 Acetaminophen (Tylenol Tab) 650 mg Q4H PRN PO PAIN; Start 11/15/16 at 09:30 Bisacodyl (Dulcolax Supp) 10 mg DAILY PRN [place] CONSTIPATION; Start 11/15/16 at 09: 30 Magnesium Hydroxide (Milk Of Mag) 30 ml BID PRN PO CONSTIPATION; Start 11/15/16 at 09:30 Lactulose 20 gm 20 gm DAILY PRN PO CONSTIPATION; Start 11/15/16 at 09:11 Ceftriaxone Sodium (Rocephin) 50 ml @ 100 mls/hr Q24H IVPB Last administered on 11/16/16 17:22; Admin Dose 100 MLS/HR; Start 11/15/16 at 17:00 Acetaminophen/ Hydrocodone Bitart ([place] (5/325)) 2 tab Q4H PRN PO PAIN LEVEL 6 -10 Last administered on 11/17/16 07:21; Admin Dose 2 TAB; Start 11/16/16 at 16: 00 Ondansetron HCl (Zofran Inj) 4 mg Q6H PRN IV NAUSEA AND/OR VOMITING Last administered on 11/17/16t 10:16; Admin Dose 4 MG; Start 11/17/16 at 10:00 Assessment/Plan Chief Complaint/Hosp Course Patient is a pleasant 46-year-old right-handed gentleman with a history of diabetes mellitus and hypertension who is admitted with rapid onset of a sending weakness in addition to electrical paresthesias. 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 He was treated with IVIG with some improvement in motor strength. Patient has been noted to have significant impairments in self-care and mobility as compared to baseline. Patient has been cleared to transfer to the rehabilitation unit for comprehensive interdisciplinary rehab care. Problems: Additional Assessment/Plan Rehabilitation -Guillian Clemmons Syndrome Continue current treatment plan as tolerated Diabetes Mellitus-monitor blood sugars Hypertension FERNANDA MARIE MD Nov 17, 2016 10:41
--- NOTE | 2016-11-17 13:15 | PN ---
Date/Time of Note Date/Time of Note DATE: 11/17/16 TIME: 13:14 Assessment/Plan VTE Prophylaxis VTE Prophylaxis Intervention: ambulation Lines/Catheters IV C[facility] Type [facility]from [facility] Saline Lock Assessment/Plan Chief Complaint/Hosp Course 1. Diabetes Mellitus, controlled 2. 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 Continue current regime Subjective 24 Hr Interval Summary Constitutional: no complaints Exam/Review of Systems Vital Signs Vitals Vital Signs Date Time Temp Pulse Resp B/P Pulse Ox O2 Delivery O2 Flow Rate FiO2 11/17/16 09:30 79 17 97 21 11/17/16 07:39 98.3 99/65 11/13/16 21:58 Room Air Intake and Output 11/16/16 11/16/16 11/17/16 15:00 23:00 07:00 Intake Total 1260 ml 450 ml Output Total 941 ml 950 ml Balance 319 ml -500 ml Exam Constitutional: alert, oriented Musculoskeletal: muscle weakness (left leg) Results Result Diagram: 11/14/1662611/14/16 0627 Results 24 hrs Laboratory Tests Test 11/16/16 17:38 11/16/16 20:18 11/17/16 07:55 11/17/16 12:12 Bedside Glucose 236 H 175 113 119 Medications Medications Current Medications Pantoprazole (Protonix Tab) 40 mg DAILY@06 PO Last administered on 11/17/16 06: 33; Admin Dose 40 MG; Start 11/14/16 at 06:00 Insulin Glargine (Lantus) 8 unit BID@08,20 SC Last administered on 11/17/16 08: 49; Admin Dose 8 UNIT; Start 11/14/16 at 08:00 Diagnostic Test (Pha) (Accu-Chek) 1 ea 02 XX Last administered on 11/14/16 02: 38; Admin Dose 1 EA; Start 11/14/16 at 02:00 Lisinopril (Zestril) 10 mg DAILY PO Last administered on 11/16/16 08:54; Admin Dose 10 MG; Start 11/14/16 at 09:00 Miscellaneous Information 1 ea NOTE XX ; Start 11/13/16 at 23:30 Glucose (Glutose) 15 gm Q15M PRN PO DECREASED GLUCOSE; Start 11/13/16 at 23:30 Glucose (Glutose) 22.5 gm Q15M PRN PO DECREASED GLUCOSE; Start 11/13/16 at 23: 30 Glucagon (Glucagen) 1 mg Q15M PRN IM DECREASED GLUCOSE; Start 11/13/16 at 23:30 Glucose (Glutose) 15 gm Q15M PRN BUCCAL DECREASED GLUCOSE; Start 11/13/16 at 23 :30 Docusate Sodium (Colace) 100 mg TID PRN PO CONSTIPATION Last administered on 08:27; Admin Dose 100 MG; Start 11/13/16 at 23:45 Aspirin (Halfprin) 81 mg DAILY PO Last administered on 11/17/16 08:44; Admin Dose 81 MG; Start 11/14/16 at 09:00 Atorvastatin Calcium (Lipitor) 20 mg DAILY@21 PO Last administered on 11/16/16 20:20; Admin Dose 20 MG; Start 11/14/16 at 21:00 Bisacodyl (Dulcolax) 10 mg BID PRN PO CONSTIPATION Last administered on 08:27; Admin Dose 10 MG; Start 11/13/16 at 23:45 Docusate Sodium (Colace) 100 mg BID PO Last administered on 11/17/16 08:44; Admin Dose 100 MG; Start 11/15/16 at 21:00 Senna (Senokot) 1 tab QHS PO Last administered on 11/16/16 20:20; Admin Dose 1 TAB; Start 11/15/16 at 21:00 Acetaminophen (Tylenol Tab) 650 mg Q4H PRN PO PAIN; Start 11/15/16 at 09:30 Bisacodyl (Dulcolax Supp) 10 mg DAILY PRN [place] CONSTIPATION; Start 11/15/16 at 09: 30 Magnesium Hydroxide (Milk Of Mag) 30 ml BID PRN PO CONSTIPATION; Start 11/15/16 at 09:30 Lactulose 20 gm 20 gm DAILY PRN PO CONSTIPATION; Start 11/15/16 at 09:11 Ceftriaxone Sodium (Rocephin) 50 ml @ 100 mls/hr Q24H IVPB Last administered on 11/16/16 17:22; Admin Dose 100 MLS/HR; Start 11/15/16 at 17:00 Acetaminophen/ Hydrocodone Bitart ([place] (5/325)) 2 tab Q4H PRN PO PAIN LEVEL 6 -10 Last administered on 11/17/16 07:21; Admin Dose 2 TAB; Start 11/16/16 at 16: 00 Ondansetron HCl (Zofran Inj) 4 mg Q6H PRN IV NAUSEA AND/OR VOMITING Last administered on 11/17/16 10:16; Admin Dose 4 MG; Start 11/17/16 at 10:00 BLAS SOLANO Nov 17, 2016 13:15
[2016-11-17] MEDS: CEFTRIAXONE 1 GM/50 ML (PMX) 50 ML IVPB SCH (17:17)
[2016-11-17 20:00] VITALS: BP 104/64; RESP 18
[2016-11-17] MEDS: SENNA TAB PO SCH (20:35)
[2016-11-17] MEDS: ATORVASTATIN 20 MG TAB PO SCH (20:35)
[2016-11-18] MEDS: ACCUCHECK AT 2AM (Patients on SS coverage) XX SCH (02:00)
[2016-11-18] MEDS: IPRATROPIUM (NEB) 0.5 MG/2.5 ML AMP INH SCH ×4 (02:00→19:28)
[2016-11-18] MEDS: PANTOPRAZOLE (EC) 40 MG TAB PO SCH (06:28)
[2016-11-18] MEDS: HYDROCODONE/APAP (5/325) TAB PO PRN (06:31)
[2016-11-18 07:32] VITALS: BP 109/60; RESP 18
[2016-11-18] MEDS: Insulin NOVOLOG SS MODERATE Algorithm (SS with meals and bedtime) SC SCH ×4 (07:35→20:53)
[2016-11-18] MEDS: JENTADUETO PO SCH ×2 (07:59→17:12)
[2016-11-18] MEDS: DOCUSATE SODIUM 100 MG CAP PO SCH ×2 (07:59→20:49)
[2016-11-18] MEDS: ASPIRIN (EC) 81 MG TAB PO SCH (07:59)
[2016-11-18] MEDS: INSULIN GLARGINE [LANtus] 3 ML PEN SC SCH ×2 (08:03→20:00)
[2016-11-18] MEDS: LISINOPRIL 10 MG TAB PO SCH (09:00)
--- NOTE | 2016-11-18 11:57 | CONS ---
Date/Time of Note Date/Time of Note DATE: 11/18/16 TIME: 11:55 Consult Date/Type/Reason Admit Date/Time Nov 13, 2016 at 21:52 Type of Consultation: neuro Subjective Patient feeling better today Objective Lungs clear anteriorly abdomen soft minimal assist ambulation Vital Signs Date Time Temp Pulse Resp B/P Pulse Ox O2 Delivery O2 Flow Rate FiO2 11/18/16 07:32 98.2 70 18 109/60 98 11/17/16 09:30 21 Intake and Output 11/17/16 11/17/16 11/18/16 15:00 23:00 07:00 Intake Total 1020 ml 770 ml 120 ml Output Total 400 ml 200 ml 500 ml Balance 620 ml 570 ml -380 ml Results/Medications Result Diagram: 11/14/1662611/14/16626 Results 24 hrs Laboratory Tests Test 11/17/16 12:12 11/17/16 17:10 11/17/16 20:33 11/18/16 07:46 Bedside Glucose 119 79 80 97 Test 11/18/16 11:47 Bedside Glucose 84 Medications Current Medications Pantoprazole (Protonix Tab) 40 mg DAILY@06 PO Last administered on 11/18/16 06: 28; Admin Dose 40 MG; Start 11/14/16 at 06:00 Insulin Glargine (Lantus) 8 unit BID@08,20 SC Last administered on 11/18/16 08: 03; Admin Dose 8 UNIT; Start 11/14/16 at 08:00 Diagnostic Test (Pha) (Accu-Chek) 1 ea 02 XX Last administered on 11/14/16 02: 38; Admin Dose 1 EA; Start 11/14/16 at 02:00 Lisinopril (Zestril) 10 mg DAILY PO Last administered on 11/16/16 08:54; Admin Dose 10 MG; Start 11/14/16 at 09:00 Miscellaneous Information 1 ea NOTE XX ; Start 11/13/16 at 23:30 Glucose (Glutose) 15 gm Q15M PRN PO DECREASED GLUCOSE; Start 11/13/16 at 23:30 Glucose (Glutose) 22.5 gm Q15M PRN PO DECREASED GLUCOSE; Start 11/13/16 at 23: 30 Glucagon (Glucagen) 1 mg Q15M PRN IM DECREASED GLUCOSE; Start 11/13/16 at 23:30 Glucose (Glutose) 15 gm Q15M PRN BUCCAL DECREASED GLUCOSE; Start 11/13/16 at 23 :30 Docusate Sodium (Colace) 100 mg TID PRN PO CONSTIPATION Last administered on 08:27; Admin Dose 100 MG; Start 11/13/16 at 23:45 Aspirin (Halfprin) 81 mg DAILY PO Last administered on 11/18/16 07:59; Admin Dose 81 MG; Start 11/14/16 at 09:00 Atorvastatin Calcium (Lipitor) 20 mg DAILY@21 PO Last administered on 11/17/16 20:35; Admin Dose 20 MG; Start 11/14/16 at 21:00 Bisacodyl (Dulcolax) 10 mg BID PRN PO CONSTIPATION Last administered on 08:27; Admin Dose 10 MG; Start 11/13/16 at 23:45 Docusate Sodium (Colace) 100 mg BID PO Last administered on 11/18/16 07:59; Admin Dose 100 MG; Start 11/15/16 at 21:00 Senna (Senokot) 1 tab QHS PO Last administered on 11/17/16 20:35; Admin Dose 1 TAB; Start 11/15/16 at 21:00 Acetaminophen (Tylenol Tab) 650 mg Q4H PRN PO PAIN; Start 11/15/16 at 09:30 Bisacodyl (Dulcolax Supp) 10 mg DAILY PRN [place] CONSTIPATION; Start 11/15/16 at 09: 30 Magnesium Hydroxide (Milk Of Mag) 30 ml BID PRN PO CONSTIPATION; Start 11/15/16 at 09:30 Lactulose 20 gm 20 gm DAILY PRN PO CONSTIPATION; Start 11/15/16 at 09:11 Ceftriaxone Sodium (Rocephin) 50 ml @ 100 mls/hr Q24H IVPB Last administered on 11/17/16 17:17; Admin Dose 100 MLS/HR; Start 11/15/16 at 17:00 Acetaminophen/ Hydrocodone Bitart ([place] (5/325)) 2 tab Q4H PRN PO PAIN LEVEL 6 -10 Last administered on 11/18/16 06:31; Admin Dose 2 TAB; Start 11/16/16 at 16: 00 Ondansetron HCl (Zofran Inj) 4 mg Q6H PRN IV NAUSEA AND/OR VOMITING Last administered on 11/17/16t 10:16; Admin Dose 4 MG; Start 11/17/16 at 10:00 Assessment/Plan Chief Complaint/Hosp Course Rehabilitation -Guillian Boyd Syndrome Steady functional gains continue current treatment plan Diabetes Mellitus-monitor blood sugars Hypertension Problems: FERNANDA MARIE MD Nov 18, 2016 11:56
[2016-11-18] MEDS: CEFTRIAXONE 1 GM/50 ML (PMX) 50 ML IVPB SCH (17:12)
[2016-11-18 20:08] VITALS: BP 129/80; RESP 18
--- NOTE | 2016-11-18 20:17 | PN ---
Date/Time of Note Date/Time of Note DATE: 11/18/16 TIME: 20:16 Assessment/Plan VTE Prophylaxis VTE Prophylaxis Intervention: other Lines/Catheters IV C[facility]ter Type (from [facility] Saline Lock Urinary Cath still in place: No Assessment/Plan Chief Complaint/Hosp Course A/P UTI GB SYNDROME PLAN PER NEURO ANTIBIOTIC PER PT OT Problems: Subjective 24 Hr Interval Summary Respiratory: no complaints Cardiovascular: no complaints Neurologic: other (WEAKNESS BETTER) Exam/Review of Systems Vital Signs Vitals Vital Signs Date Time Temp Pulse Resp B/P Pulse Ox O2 Delivery O2 Flow Rate FiO2 11/18/16 20:08 98.5 88 18 129/80 97 11/17/16 09:30 21 Intake and Output 11/17/16 11/17/16 11/18/16 15:00 23:00 07:00 Intake Total 1020 ml 770 ml 120 ml Output Total 400 ml 200 ml 500 ml Balance 620 ml 570 ml -380 ml Exam Neck: supple Respiratory: clear to auscultation Cardiovascular: regular rate and rhythm Gastrointestinal: soft Musculoskeletal: nl extremities to inspection Results Result Diagram: 11/14/16 0627 11/14/16 0627 Results 24 hrs Laboratory Tests Test 11/17/16 20:33 11/18/16 07:46 11/18/16 11:47 11/18/16 16:59 Bedside Glucose 80 97 84 97 Medications Medications Current Medications Pantoprazole (Protonix Tab) 40 mg DAILY@06 PO Last administered on 11/18/16 06: 28; Admin Dose 40 MG; Start 11/14/16 at 06:00 Diagnostic Test (Pha) (Accu-Chek) 1 ea 02 XX Last administered on 11/14/16 02: 38; Admin Dose 1 EA; Start 11/14/16 at 02:00 Lisinopril (Zestril) 10 mg DAILY PO Last administered on 11/16/16 08:54; Admin Dose 10 MG; Start 11/14/16 at 09:00 Miscellaneous Information 1 ea NOTE XX ; Start 11/13/16 at 23:30 Glucose (Glutose) 15 gm Q15M PRN PO DECREASED GLUCOSE; Start 11/13/16 at 23:30 Glucose (Glutose) 22.5 gm Q15M PRN PO DECREASED GLUCOSE; Start 11/13/16 at 23: 30 Glucagon (Glucagen) 1 mg Q15M PRN IM DECREASED GLUCOSE; Start 11/13/16 at 23:30 Glucose (Glutose) 15 gm Q15M PRN BUCCAL DECREASED GLUCOSE; Start 11/13/16 at 23 :30 Docusate Sodium (Colace) 100 mg TID PRN PO CONSTIPATION Last administered on 08:27; Admin Dose 100 MG; Start 11/13/16 at 23:45 Aspirin (Halfprin) 81 mg DAILY PO Last administered on 11/18/16 07:59; Admin Dose 81 MG; Start 11/14/16 at 09:00 Atorvastatin Calcium (Lipitor) 20 mg DAILY@21 PO Last administered on 11/17/16 20:35; Admin Dose 20 MG; Start 11/14/16 at 21:00 Bisacodyl (Dulcolax) 10 mg BID PRN PO CONSTIPATION Last administered on 08:27; Admin Dose 10 MG; Start 11/13/16 at 23:45 Docusate Sodium (Colace) 100 mg BID PO Last administered on 11/18/16 07:59; Admin Dose 100 MG; Start 11/15/16 at 21:00 Senna (Senokot) 1 tab QHS PO Last administered on 11/17/16 20:35; Admin Dose 1 TAB; Start 11/15/16 at 21:00 Acetaminophen (Tylenol Tab) 650 mg Q4H PRN PO PAIN; Start 11/15/16 at 09:30 Bisacodyl (Dulcolax Supp) 10 mg DAILY PRN [place] CONSTIPATION; Start 11/15/16 at 09: 30 Magnesium Hydroxide (Milk Of Mag) 30 ml BID PRN PO CONSTIPATION; Start 11/15/16 at 09:30 Lactulose 20 gm 20 gm DAILY PRN PO CONSTIPATION; Start 11/15/16 at 09:11 Ceftriaxone Sodium (Rocephin) 50 ml @ 100 mls/hr Q24H IVPB Last administered on 11/18/16 17:12; Admin Dose 100 MLS/HR; Start 11/15/16 at 17:00 Acetaminophen/ Hydrocodone Bitart ([place] (5/325)) 2 tab Q4H PRN PO PAIN LEVEL 6 -10 Last administered on 11/18/16 06:31; Admin Dose 2 TAB; Start 11/16/16 at 16: 00 Ondansetron HCl (Zofran Inj) 4 mg Q6H PRN IV NAUSEA AND/OR VOMITING Last administered on 11/17/16t 10:16; Admin Dose 4 MG; Start 11/17/16 at 10:00 Insulin Glargine (Lantus) 6 unit BID@08,20 SC ; Start 11/18/16 at 20:00 NYASIA JOSEPH MD Nov 18, 2016 20:17
[2016-11-18] MEDS: SENNA TAB PO SCH (20:49)
[2016-11-18] MEDS: ATORVASTATIN 20 MG TAB PO SCH (20:50)
[2016-11-19] MEDS: ACCUCHECK AT 2AM (Patients on SS coverage) XX SCH (02:00)
[2016-11-19] MEDS: HYDROCODONE/APAP (5/325) TAB PO PRN (02:18)
[2016-11-19] MEDS: PANTOPRAZOLE (EC) 40 MG TAB PO SCH (05:56)
[2016-11-19 07:29] LABS: ALBUMIN/GLOBULIN RATIO 1.48; BILIRUBIN,INDIRECT 0.2 mg/dl (0-1.1); BILIRUBIN,TOTAL 0.2 mg/dl (0.2-1.3); CREATININE 0.67 mg/dl (0.61-1.24); POTASSIUM 3.7 mmol/L (3.5-5.1); TOTAL PROTEIN 6.7 g/dl (6.1-8.1)
[2016-11-19 07:30] VITALS: BP 110/70; RESP 18
[2016-11-19] MEDS: Insulin NOVOLOG SS MODERATE Algorithm (SS with meals and bedtime) SC SCH ×4 (07:35→21:00)
[2016-11-19] MEDS: IPRATROPIUM (NEB) 0.5 MG/2.5 ML AMP INH SCH ×3 (07:41→20:00)
--- NOTE | 2016-11-19 08:16 | CONS ---
Date/Time of Note Date/Time of Note DATE: 11/19/16 TIME: 08:15 Consult Date/Type/Reason Admit Date/Time Nov 13, 2016 at 21:52 Type of Consultation: neuro Subjective Feeling stronger Objective Lungs clear anteriorly Improving fine finger movement Min assist ambulation Vital Signs Date Time Temp Pulse Resp B/P Pulse Ox O2 Delivery O2 Flow Rate FiO2 11/18/16 20:08 98.5 88 18 129/80 97 11/17/16 09:30 21 Intake and Output 11/18/16 11/18/16 11/19/16 15:00 23:00 07:00 Intake Total 1200 ml 650 ml 800 ml Output Total 180 ml 500 ml 800 ml Balance 1020 ml 150 ml 0 ml Results/Medications Result Diagram: 11/19/16 0620 Results 24 hrs Laboratory Tests Test 11/18/16 11:47 11/18/16 16:59 11/18/16 20:51 11/19/16 02:30 Bedside Glucose 84 97 75 102 Test 11/19/16 06:20 11/19/16 08:08 Sodium Level 142 Potassium Level 3.7 Chloride Level 100 Carbon Dioxide Level 29 Anion Gap 17 H Blood Urea Nitrogen 28 H Creatinine 0.67 Glucose Level 83 Calcium Level 9.0 Total Bilirubin 0.2 Direct Bilirubin 0.00 Indirect Bilirubin 0.2 Aspartate Amino Transf (AST/SGOT) 28 Alanine Aminotransferase (ALT/SGPT) 37 Alkaline Phosphatase 60 Total Protein 6.7 Albumin 4.0 Globulin 2.70 Albumin/Globulin Ratio 1.48 Bedside Glucose 91 Medications Current Medications Pantoprazole (Protonix Tab) 40 mg DAILY@06 PO Last administered on 11/19/16 05: 56; Admin Dose 40 MG; Start 11/14/16 at 06:00 Diagnostic Test (Pha) (Accu-Chek) 1 ea 02 XX Last administered on 11/14/16 02: 38; Admin Dose 1 EA; Start 11/14/16 at 02:00 Lisinopril (Zestril) 10 mg DAILY PO Last administered on 11/16/16 08:54; Admin Dose 10 MG; Start 11/14/16 at 09:00 Miscellaneous Information 1 ea NOTE XX ; Start 11/13/16 at 23:30 Glucose (Glutose) 15 gm Q15M PRN PO DECREASED GLUCOSE; Start 11/13/16 at 23:30 Glucose (Glutose) 22.5 gm Q15M PRN PO DECREASED GLUCOSE; Start 11/13/16 at 23: 30 Glucagon (Glucagen) 1 mg Q15M PRN IM DECREASED GLUCOSE; Start 11/13/16 at 23:30 Glucose (Glutose) 15 gm Q15M PRN BUCCAL DECREASED GLUCOSE; Start 11/13/16 at 23 :30 Docusate Sodium (Colace) 100 mg TID PRN PO CONSTIPATION Last administered on 08:27; Admin Dose 100 MG; Start 11/13/16 at 23:45 Aspirin (Halfprin) 81 mg DAILY PO Last administered on 11/18/16 07:59; Admin Dose 81 MG; Start 11/14/16 at 09:00 Atorvastatin Calcium (Lipitor) 20 mg DAILY@21 PO Last administered on 11/18/16 20:50; Admin Dose 20 MG; Start 11/14/16 at 21:00 Bisacodyl (Dulcolax) 10 mg BID PRN PO CONSTIPATION Last administered on 08:27; Admin Dose 10 MG; Start 11/13/16 at 23:45 Docusate Sodium (Colace) 100 mg BID PO Last administered on 11/18/16 07:59; Admin Dose 100 MG; Start 11/15/16 at 21:00 Senna (Senokot) 1 tab QHS PO Last administered on 11/17/16 20:35; Admin Dose 1 TAB; Start 11/15/16 at 21:00 Acetaminophen (Tylenol Tab) 650 mg Q4H PRN PO PAIN; Start 11/15/16 at 09:30 Bisacodyl (Dulcolax Supp) 10 mg DAILY PRN [place] CONSTIPATION; Start 11/15/16 at 09: 30 Magnesium Hydroxide (Milk Of Mag) 30 ml BID PRN PO CONSTIPATION; Start 11/15/16 at 09:30 Lactulose 20 gm 20 gm DAILY PRN PO CONSTIPATION; Start 11/15/16 at 09:11 Ceftriaxone Sodium (Rocephin) 50 ml @ 100 mls/hr Q24H IVPB Last administered on 11/18/16 17:12; Admin Dose 100 MLS/HR; Start 11/15/16 at 17:00 Acetaminophen/ Hydrocodone Bitart ([place] (5/325)) 2 tab Q4H PRN PO PAIN LEVEL 6 -10 Last administered on 11/19/16 02:18; Admin Dose 2 TAB; Start 11/16/16 at 16: 00 Ondansetron HCl (Zofran Inj) 4 mg Q6H PRN IV NAUSEA AND/OR VOMITING Last administered on 11/17/16 10:16; Admin Dose 4 MG; Start 11/17/16 at 10:00 Insulin Glargine (Lantus) 6 unit BID@08,20 SC ; Start 11/18/16 at 20:00 Assessment/Plan Chief Complaint/Hosp Course Rehabilitation -Guillian Vandemere Syndrome Patient cannot continues to demonstrate excellent progress, continue treatment plan. Diabetes Mellitus-under good control Hypertension Problems: FERNANDA MARIE MD Nov 19, 2016 08:16
[2016-11-19] MEDS: INSULIN GLARGINE [LANtus] 3 ML PEN SC SCH ×2 (08:45→21:15)
[2016-11-19] MEDS: JENTADUETO PO SCH ×2 (08:46→17:32)
[2016-11-19] MEDS: DOCUSATE SODIUM 100 MG CAP PO SCH ×2 (08:47→21:00)
[2016-11-19] MEDS: ASPIRIN (EC) 81 MG TAB PO SCH (08:47)
[2016-11-19] MEDS: LISINOPRIL 10 MG TAB PO SCH (08:49)
--- NOTE | 2016-11-19 14:08 | PN ---
Date/Time of Note Date/Time of Note DATE: 11/19/16 TIME: 14:07 Assessment/Plan VTE Prophylaxis VTE Prophylaxis Intervention: other Lines/Catheters [facility] (from [facility] Saline Lock Urinary Cath still in place: No Assessment/Plan Chief Complaint/Hosp Course Patient is doing fine Patient is getting physical therapy daily Discharge planning per rehab Problems: Subjective 24 Hr Interval Summary Cardiovascular: no complaints Gastrointestinal: no complaints Genitourinary: no complaints Exam/Review of Systems Vital Signs Vitals Vital Signs Date Time Temp Pulse Resp B/P Pulse Ox O2 Delivery O2 Flow Rate FiO2 11/19/16 07:30 97.7 73 18 110/70 99 11/17/16 09:30 21 Intake and Output 11/18/16 11/18/16 11/19/16 15:00 23:00 07:00 Intake Total 1200 ml 650 ml 800 ml Output Total 180 ml 500 ml 800 ml Balance 1020 ml 150 ml 0 ml Exam Cardiovascular: regular rate and rhythm Gastrointestinal: soft Musculoskeletal: nl extremities to inspection Results Result Diagram: 11/19/16 0620 Results 24 hrs Laboratory Tests Test 11/18/16 16:59 11/18/16 20:51 11/19/16 02:30 11/19/16 06:20 Bedside Glucose 97 75 102 Sodium Level 142 Potassium Level 3.7 Chloride Level 100 Carbon Dioxide Level 29 Anion Gap 17 H Blood Urea Nitrogen 28 H Creatinine 0.67 Glucose Level 83 Calcium Level 9.0 Total Bilirubin 0.2 Direct Bilirubin 0.00 Indirect Bilirubin 0.2 Aspartate Amino Transf (AST/SGOT) 28 Alanine Aminotransferase (ALT/SGPT) 37 Alkaline Phosphatase 60 Total Protein 6.7 Albumin 4.0 Globulin 2.70 Albumin/Globulin Ratio 1.48 Test 11/19/16 08:08 11/19/16 12:00 Bedside Glucose 91 95 Medications Medications Current Medications Pantoprazole (Protonix Tab) 40 mg DAILY@06 PO Last administered on 11/19/16 05: 56; Admin Dose 40 MG; Start 11/14/16 at 06:00 Diagnostic Test (Pha) (Accu-Chek) 1 ea 02 XX Last administered on 11/14/16 02: 38; Admin Dose 1 EA; Start 11/14/16 at 02:00 Lisinopril (Zestril) 10 mg DAILY PO Last administered on 11/19/16 08:49; Admin Dose 10 MG; Start 11/14/16 at 09:00 Miscellaneous Information 1 ea NOTE XX ; Start 11/13/16 at 23:30 Glucose (Glutose) 15 gm Q15M PRN PO DECREASED GLUCOSE; Start 11/13/16 at 23:30 Glucose (Glutose) 22.5 gm Q15M PRN PO DECREASED GLUCOSE; Start 11/13/16 at 23: 30 Glucagon (Glucagen) 1 mg Q15M PRN IM DECREASED GLUCOSE; Start 11/13/16 at 23:30 Glucose (Glutose) 15 gm Q15M PRN BUCCAL DECREASED GLUCOSE; Start 11/13/16 at 23 :30 Docusate Sodium (Colace) 100 mg TID PRN PO CONSTIPATION Last administered on 08:27; Admin Dose 100 MG; Start 11/13/16 at 23:45 Aspirin (Halfprin) 81 mg DAILY PO Last administered on 11/19/16 08:47; Admin Dose 81 MG; Start 11/14/16 at 09:00 Atorvastatin Calcium (Lipitor) 20 mg DAILY@21 PO Last administered on 11/18/16 20:50; Admin Dose 20 MG; Start 11/14/16 at 21:00 Bisacodyl (Dulcolax) 10 mg BID PRN PO CONSTIPATION Last administered on 08:27; Admin Dose 10 MG; Start 11/13/16 at 23:45 Docusate Sodium (Colace) 100 mg BID PO Last administered on 11/19/16 08:47; Admin Dose 100 MG; Start 11/15/16 at 21:00 Senna (Senokot) 1 tab QHS PO Last administered on 11/17/16 20:35; Admin Dose 1 TAB; Start 11/15/16 at 21:00 Acetaminophen (Tylenol Tab) 650 mg Q4H PRN PO PAIN; Start 11/15/16 at 09:30 Bisacodyl (Dulcolax Supp) 10 mg DAILY PRN [place] CONSTIPATION; Start 11/15/16 at 09: 30 Magnesium Hydroxide (Milk Of Mag) 30 ml BID PRN PO CONSTIPATION; Start 11/15/16 at 09:30 Lactulose 20 gm 20 gm DAILY PRN PO CONSTIPATION; Start 11/15/16 at 09:11 Ceftriaxone Sodium (Rocephin) 50 ml @ 100 mls/hr Q24H IVPB Last administered on 11/18/16 17:12; Admin Dose 100 MLS/HR; Start 11/15/16 at 17:00 Acetaminophen/ Hydrocodone Bitart ([place] (5/325)) 2 tab Q4H PRN PO PAIN LEVEL 6 -10 Last administered on 11/19/16 02:18; Admin Dose 2 TAB; Start 11/16/16 at 16: 00 Ondansetron HCl (Zofran Inj) 4 mg Q6H PRN IV NAUSEA AND/OR VOMITING Last administered on 11/17/16 10:16; Admin Dose 4 MG; Start 11/17/16 at 10:00 Insulin Glargine (Lantus) 6 unit BID@08,20 SC Last administered on 11/19/16 08: 45; Admin Dose 6 UNIT; Start 11/18/16 at 20:00 NYASIA JOSEPH MD Nov 19, 2016 14:08
--- NOTE | 2016-11-19 17:07 | PN ---
Date/Time of Note Date/Time of Note DATE: 11/19/16 TIME: 17:06 Assessment/Plan VTE Prophylaxis VTE Prophylaxis Intervention: other Lines/Catheters IV [facility] (from [facility] Saline Lock Urinary Cath still in place: No Assessment/Plan Chief Complaint/Hosp Course Patient is doing fine Patient is getting physical therapy daily Discharge planning per rehab Problems: Subjective 24 Hr Interval Summary Genitourinary: no complaints Musculoskeletal: no complaints Exam/Review of Systems Vital Signs Vitals Vital Signs Date Time Temp Pulse Resp B/P Pulse Ox O2 Delivery O2 Flow Rate FiO2 11/19/16 07:30 97.7 73 18 110/70 99 11/17/16 09:30 21 Intake and Output 11/18/16 11/18/16 11/19/16 15:00 23:00 07:00 Intake Total 1200 ml 650 ml 800 ml Output Total 180 ml 500 ml 800 ml Balance 1020 ml 150 ml 0 ml Exam Cardiovascular: regular rate and rhythm Gastrointestinal: soft Genitourinary - Male: nl penis Results Result Diagram: 11/19/16 0620 Results 24 hrs Laboratory Tests Test 11/18/16 20:51 11/19/16 02:30 11/19/16 06:20 11/19/16 08:08 Bedside Glucose 75 102 91 Sodium Level 142 Potassium Level 3.7 Chloride Level 100 Carbon Dioxide Level 29 Anion Gap 17 H Blood Urea Nitrogen 28 H Creatinine 0.67 Glucose Level 83 Calcium Level 9.0 Total Bilirubin 0.2 Direct Bilirubin 0.00 Indirect Bilirubin 0.2 Aspartate Amino Transf (AST/SGOT) 28 Alanine Aminotransferase (ALT/SGPT) 37 Alkaline Phosphatase 60 Total Protein 6.7 Albumin 4.0 Globulin 2.70 Albumin/Globulin Ratio 1.48 Test 11/19/16 12:00 Bedside Glucose 95 Medications Medications Current Medications Pantoprazole (Protonix Tab) 40 mg DAILY@06 PO Last administered on 11/19/16 05: 56; Admin Dose 40 MG; Start 11/14/16 at 06:00 Diagnostic Test (Pha) (Accu-Chek) 1 ea 02 XX Last administered on 11/14/16 02: 38; Admin Dose 1 EA; Start 11/14/16 at 02:00 Lisinopril (Zestril) 10 mg DAILY PO Last administered on 11/19/16 08:49; Admin Dose 10 MG; Start 11/14/16 at 09:00 Miscellaneous Information 1 ea NOTE XX ; Start 11/13/16 at 23:30 Glucose (Glutose) 15 gm Q15M PRN PO DECREASED GLUCOSE; Start 11/13/16 at 23:30 Glucose (Glutose) 22.5 gm Q15M PRN PO DECREASED GLUCOSE; Start 11/13/16 at 23: 30 Glucagon (Glucagen) 1 mg Q15M PRN IM DECREASED GLUCOSE; Start 11/13/16 at 23:30 Glucose (Glutose) 15 gm Q15M PRN BUCCAL DECREASED GLUCOSE; Start 11/13/16 at 23 :30 Docusate Sodium (Colace) 100 mg TID PRN PO CONSTIPATION Last administered on 08:27; Admin Dose 100 MG; Start 11/13/16 at 23:45 Aspirin (Halfprin) 81 mg DAILY PO Last administered on 11/19/16 08:47; Admin Dose 81 MG; Start 11/14/16 at 09:00 Atorvastatin Calcium (Lipitor) 20 mg DAILY@21 PO Last administered on 11/18/16 20:50; Admin Dose 20 MG; Start 11/14/16 at 21:00 Bisacodyl (Dulcolax) 10 mg BID PRN PO CONSTIPATION Last administered on 08:27; Admin Dose 10 MG; Start 11/13/16 at 23:45 Docusate Sodium (Colace) 100 mg BID PO Last administered on 11/19/16 08:47; Admin Dose 100 MG; Start 11/15/16 at 21:00 Senna (Senokot) 1 tab QHS PO Last administered on 11/17/16 20:35; Admin Dose 1 TAB; Start 11/15/16 at 21:00 Acetaminophen (Tylenol Tab) 650 mg Q4H PRN PO PAIN; Start 11/15/16 at 09:30 Bisacodyl (Dulcolax Supp) 10 mg DAILY PRN [place] CONSTIPATION; Start 11/15/16 at 09: 30 Magnesium Hydroxide (Milk Of Mag) 30 ml BID PRN PO CONSTIPATION; Start 11/15/16 at 09:30 Lactulose 20 gm 20 gm DAILY PRN PO CONSTIPATION; Start 11/15/16 at 09:11 Ceftriaxone Sodium (Rocephin) 50 ml @ 100 mls/hr Q24H IVPB Last administered on 11/18/16 17:12; Admin Dose 100 MLS/HR; Start 11/15/16 at 17:00 Acetaminophen/ Hydrocodone Bitart ([place] (5/325)) 2 tab Q4H PRN PO PAIN LEVEL 6 -10 Last administered on 11/19/16 02:18; Admin Dose 2 TAB; Start 11/16/16 at 16: 00 Ondansetron HCl (Zofran Inj) 4 mg Q6H PRN IV NAUSEA AND/OR VOMITING Last administered on 11/17/16 10:16; Admin Dose 4 MG; Start 11/17/16 at 10:00 Insulin Glargine (Lantus) 6 unit BID@08,20 SC Last administered on 11/19/16 08: 45; Admin Dose 6 UNIT; Start 11/18/16 at 20:00 NYASIA JOSEPH MD Nov 19, 2016 17:07
[2016-11-19] MEDS: CEFTRIAXONE 1 GM/50 ML (PMX) 50 ML IVPB SCH (17:13)
[2016-11-19 19:31] VITALS: BP 144/86; RESP 19
[2016-11-19 19:40] VITALS: BP 108/56; RESP 18
[2016-11-19] MEDS: SENNA TAB PO SCH (21:00)
[2016-11-19] MEDS: ATORVASTATIN 20 MG TAB PO SCH (21:23)
[2016-11-20] MEDS: IPRATROPIUM (NEB) 0.5 MG/2.5 ML AMP INH SCH ×2 (02:00→07:45)
[2016-11-20] MEDS: ACCUCHECK AT 2AM (Patients on SS coverage) XX SCH (02:15)
[2016-11-20] MEDS: PANTOPRAZOLE (EC) 40 MG TAB PO SCH (06:20)
[2016-11-20 07:31] VITALS: BP 116/64; RESP 18
[2016-11-20] MEDS: Insulin NOVOLOG SS MODERATE Algorithm (SS with meals and bedtime) SC SCH ×4 (07:35→21:00)
[2016-11-20] MEDS: INSULIN GLARGINE [LANtus] 3 ML PEN SC SCH ×2 (08:41→21:00)
[2016-11-20] MEDS: HYDROCODONE/APAP (5/325) TAB PO PRN (08:42)
[2016-11-20] MEDS: JENTADUETO PO SCH ×2 (08:42→18:03)
[2016-11-20] MEDS: ASPIRIN (EC) 81 MG TAB PO SCH (08:43)
[2016-11-20] MEDS: DOCUSATE SODIUM 100 MG CAP PO SCH ×2 (08:43→21:01)
[2016-11-20] MEDS: LISINOPRIL 10 MG TAB PO SCH (08:43)
--- NOTE | 2016-11-20 11:00 | CONS ---
Date/Time of Note Date/Time of Note DATE: 11/20/16 TIME: 10:58 Consult Date/Type/Reason Admit Date/Time Nov 13, 2016 at 21:52 Type of Consultation: neuro Subjective In good spirits, motivated for activities Objective Lungs clear anteriorly cardiac S1-S2 Moderate - min assist ambulation Vital Signs Date Time Temp Pulse Resp B/P Pulse Ox O2 Delivery O2 Flow Rate FiO2 11/20/16 07:31 97.9 71 18 116/64 96 11/19/16 20:44 21 Intake and Output 11/19/16 11/19/16 11/20/16 15:00 23:00 07:00 Intake Total 1690 ml 350 ml Output Total 1300 ml 450 ml Balance 390 ml -100 ml Results/Medications Result Diagram: 11/19/16 0620 Results 24 hrs Laboratory Tests Test 11/19/16 12:00 11/19/16 17:29 11/19/16 21:20 11/20/16 08:21 Bedside Glucose 95 116 77 105 Medications Current Medications Pantoprazole (Protonix Tab) 40 mg DAILY@06 PO Last administered on 11/20/16 06: 20; Admin Dose 40 MG; Start 11/14/16 at 06:00 Diagnostic Test (Pha) (Accu-Chek) 1 ea 02 XX Last administered on 11/14/16 02: 38; Admin Dose 1 EA; Start 11/14/16 at 02:00 Lisinopril (Zestril) 10 mg DAILY PO Last administered on 11/20/16 08:43; Admin Dose 10 MG; Start 11/14/16 at 09:00 Miscellaneous Information 1 ea NOTE XX ; Start 11/13/16 at 23:30 Glucose (Glutose) 15 gm Q15M PRN PO DECREASED GLUCOSE; Start 11/13/16 at 23:30 Glucose (Glutose) 22.5 gm Q15M PRN PO DECREASED GLUCOSE; Start 11/13/16 at 23: 30 Glucagon (Glucagen) 1 mg Q15M PRN IM DECREASED GLUCOSE; Start 11/13/16 at 23:30 Glucose (Glutose) 15 gm Q15M PRN BUCCAL DECREASED GLUCOSE; Start 11/13/16 at 23 :30 Docusate Sodium (Colace) 100 mg TID PRN PO CONSTIPATION Last administered on 08:27; Admin Dose 100 MG; Start 11/13/16 at 23:45 Aspirin (Halfprin) 81 mg DAILY PO Last administered on 11/20/16 08:43; Admin Dose 81 MG; Start 11/14/16 at 09:00 Atorvastatin Calcium (Lipitor) 20 mg DAILY@21 PO Last administered on 11/19/16 21:23; Admin Dose 20 MG; Start 11/14/16 at 21:00 Bisacodyl (Dulcolax) 10 mg BID PRN PO CONSTIPATION Last administered on 08:27; Admin Dose 10 MG; Start 11/13/16 at 23:45 Docusate Sodium (Colace) 100 mg BID PO Last administered on 11/20/16 08:43; Admin Dose 100 MG; Start 11/15/16 at 21:00 Senna (Senokot) 1 tab QHS PO Last administered on 11/17/16 20:35; Admin Dose 1 TAB; Start 11/15/16 at 21:00 Acetaminophen (Tylenol Tab) 650 mg Q4H PRN PO PAIN; Start 11/15/16 at 09:30 Bisacodyl (Dulcolax Supp) 10 mg DAILY PRN [place] CONSTIPATION; Start 11/15/16 at 09: 30 Magnesium Hydroxide (Milk Of Mag) 30 ml BID PRN PO CONSTIPATION; Start 11/15/16 at 09:30 Lactulose 20 gm 20 gm DAILY PRN PO CONSTIPATION; Start 11/15/16 at 09:11 Ceftriaxone Sodium (Rocephin) 50 ml @ 100 mls/hr Q24H IVPB Last administered on 11/19/16 17:13; Admin Dose 100 MLS/HR; Start 11/15/16 at 17:00 Acetaminophen/ Hydrocodone Bitart ([place] (5/325)) 2 tab Q4H PRN PO PAIN LEVEL 6 -10 Last administered on 11/20/16 08:42; Admin Dose 2 TAB; Start 11/16/16 at 16: 00 Ondansetron HCl (Zofran Inj) 4 mg Q6H PRN IV NAUSEA AND/OR VOMITING Last administered on 11/17/16 10:16; Admin Dose 4 MG; Start 11/17/16 at 10:00 Insulin Glargine (Lantus) 6 unit BID@08,20 SC Last administered on 11/20/16 08: 41; Admin Dose 6 UNIT; Start 11/18/16 at 20:00 Assessment/Plan Chief Complaint/Hosp Course Rehabilitation -Guillian [place] Syndrome Patient improving with all areas of self-care and mobility, continue treatment plan Diabetes Mellitus-under good control Hypertension Problems: FERNANDA MARIE MD Nov 20, 2016 11:00
--- NOTE | 2016-11-20 13:00 | PN ---
Date/Time of Note Date/Time of Note DATE: 11/20/16 TIME: 12:58 Assessment/Plan VTE Prophylaxis VTE Prophylaxis Intervention: ambulation Lines/Catheters [facility] Urinary Cath still in place: No Assessment/Plan Chief Complaint/Hosp Course 1. Diabetes Mellitus, controlled 2. 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 continue rehabilitation 2. D/c a/b 3. decrease insulin detemir to 5 un sq q HS Subjective 24 Hr Interval Summary Constitutional: improved, no complaints Exam/Review of Systems Vital Signs Vitals Vital Signs Date Time Temp Pulse Resp B/P Pulse Ox O2 Delivery O2 Flow Rate FiO2 11/20/16 07:31 97.9 71 18 116/64 96 11/19/16 20:44 21 Intake and Output 11/19/16 11/19/16 11/20/16 15:00 23:00 07:00 Intake Total 1690 ml 350 ml Output Total 1300 ml 450 ml Balance 390 ml -100 ml Exam Psych: no complaints Head: normocephalic Respiratory: clear to auscultation Cardiovascular: regular rate and rhythm Musculoskeletal: muscle weakness (left leg) Results Result Diagram: 11/19/16 0620 Results 24 hrs Laboratory Tests Test 11/19/16 17:29 11/19/16 21:20 11/20/16 08:21 11/20/16 11:52 Bedside Glucose 116 77 105 75 Medications Medications Current Medications Pantoprazole (Protonix Tab) 40 mg DAILY@06 PO Last administered on 11/20/16 06: 20; Admin Dose 40 MG; Start 11/14/16 at 06:00 Diagnostic Test (Pha) (Accu-Chek) 1 ea 02 XX Last administered on 11/14/16 02: 38; Admin Dose 1 EA; Start 11/14/16 at 02:00 Lisinopril (Zestril) 10 mg DAILY PO Last administered on 11/20/16 08:43; Admin Dose 10 MG; Start 11/14/16 at 09:00 Miscellaneous Information 1 ea NOTE XX ; Start 11/13/16 at 23:30 Glucose (Glutose) 15 gm Q15M PRN PO DECREASED GLUCOSE; Start 11/13/16 at 23:30 Glucose (Glutose) 22.5 gm Q15M PRN PO DECREASED GLUCOSE; Start 11/13/16 at 23: 30 Glucagon (Glucagen) 1 mg Q15M PRN IM DECREASED GLUCOSE; Start 11/13/16 at 23:30 Glucose (Glutose) 15 gm Q15M PRN BUCCAL DECREASED GLUCOSE; Start 11/13/16 at 23 :30 Docusate Sodium (Colace) 100 mg TID PRN PO CONSTIPATION Last administered on 08:27; Admin Dose 100 MG; Start 11/13/16 at 23:45 Aspirin (Halfprin) 81 mg DAILY PO Last administered on 11/20/16 08:43; Admin Dose 81 MG; Start 11/14/16 at 09:00 Atorvastatin Calcium (Lipitor) 20 mg DAILY@21 PO Last administered on 11/19/16 21:23; Admin Dose 20 MG; Start 11/14/16 at 21:00 Bisacodyl (Dulcolax) 10 mg BID PRN PO CONSTIPATION Last administered on 08:27; Admin Dose 10 MG; Start 11/13/16 at 23:45 Docusate Sodium (Colace) 100 mg BID PO Last administered on 11/20/16 08:43; Admin Dose 100 MG; Start 11/15/16 at 21:00 Senna (Senokot) 1 tab QHS PO Last administered on 11/17/16 20:35; Admin Dose 1 TAB; Start 11/15/16 at 21:00 Acetaminophen (Tylenol Tab) 650 mg Q4H PRN PO PAIN; Start 11/15/16 at 09:30 Bisacodyl (Dulcolax Supp) 10 mg DAILY PRN [place] CONSTIPATION; Start 11/15/16 at 09: 30 Magnesium Hydroxide (Milk Of Mag) 30 ml BID PRN PO CONSTIPATION; Start 11/15/16 at 09:30 Lactulose 20 gm 20 gm DAILY PRN PO CONSTIPATION; Start 11/15/16 at 09:11 Ceftriaxone Sodium (Rocephin) 50 ml @ 100 mls/hr Q24H IVPB Last administered on 11/19/16 17:13; Admin Dose 100 MLS/HR; Start 11/15/16 at 17:00 Acetaminophen/ Hydrocodone Bitart ([place] (5/325)) 2 tab Q4H PRN PO PAIN LEVEL 6 -10 Last administered on 11/20/16 08:42; Admin Dose 2 TAB; Start 11/16/16 at 16: 00 Ondansetron HCl (Zofran Inj) 4 mg Q6H PRN IV NAUSEA AND/OR VOMITING Last administered on 11/17/16 10:16; Admin Dose 4 MG; Start 11/17/16 at 10:00 Insulin Glargine (Lantus) 5 unit BID@08,20 SC ; Start 11/20/16 at 20:00 BLAS SOLANO Nov 20, 2016 13:00
[2016-11-20 20:00] VITALS: BP 127/73; RESP 18
[2016-11-20] MEDS: ATORVASTATIN 20 MG TAB PO SCH (21:01)
[2016-11-20] MEDS: SENNA TAB PO SCH (21:01)
[2016-11-21] MEDS: ACCUCHECK AT 2AM (Patients on SS coverage) XX SCH (02:00)
[2016-11-21] MEDS: PANTOPRAZOLE (EC) 40 MG TAB PO SCH (06:07)
[2016-11-21] MEDS: Insulin NOVOLOG SS MODERATE Algorithm (SS with meals and bedtime) SC SCH ×4 (07:35→20:31)
[2016-11-21 07:37] LABS: CALCIUM 8.9 mg/dl (8.4-10.2); CREATININE 0.78 mg/dl (0.61-1.24); POTASSIUM 3.7 mmol/L (3.5-5.1)
[2016-11-21] MEDS: JENTADUETO PO SCH ×2 (08:17→17:34)
[2016-11-21] MEDS: DOCUSATE SODIUM 100 MG CAP PO SCH ×2 (08:19→20:28)
[2016-11-21] MEDS: INSULIN GLARGINE [LANtus] 3 ML PEN SC SCH ×2 (08:21→20:30)
[2016-11-21] MEDS: ASPIRIN (EC) 81 MG TAB PO SCH (08:21)
[2016-11-21] MEDS: LISINOPRIL 10 MG TAB PO SCH (08:22)
--- NOTE | 2016-11-21 11:41 | PN ---
Date/Time of Note Date/Time of Note DATE: 11/21/16 TIME: 11:39 Assessment/Plan VTE Prophylaxis VTE Prophylaxis Intervention: ambulation Lines/Catheters [facility] Urinary Cath still in place: No Assessment/Plan Chief Complaint/Hosp Course 1. Diabetes Mellitus, controlled 2. 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 continue current regime Subjective 24 Hr Interval Summary Constitutional: no complaints Eyes: no complaints ENT: no complaints Musculoskeletal: restricted range of motion (left leg) Endocrine: no complaints Lymphatic: no complaints Exam/Review of Systems Vital Signs Vitals Vital Signs Date Time Temp Pulse Resp B/P Pulse Ox O2 Delivery O2 Flow Rate FiO2 11/20/16 20:00 98.5 87 18 127/73 96 11/19/16 20:44 21 Intake and Output 11/20/16 11/20/16 11/21/16 15:00 23:00 07:00 Intake Total 1200 ml 600 ml 300 ml Output Total 500 ml 350 ml 700 ml Balance 700 ml 250 ml -400 ml Exam Constitutional: alert, oriented Respiratory: clear to auscultation, normal air movement Musculoskeletal: muscle weakness (left leg), range of motion Results Result Diagram: 11/21/16 0606 Results 24 hrs Laboratory Tests Test 11/20/16 11:52 11/20/16 17:23 11/20/16 21:04 11/21/16 06:06 Bedside Glucose 75 84 84 Sodium Level 140 Potassium Level 3.7 Chloride Level 103 Carbon Dioxide Level 29 Anion Gap 12 Blood Urea Nitrogen 28 H Creatinine 0.78 Glucose Level 109 Calcium Level 8.9 Test 11/21/16 07:52 Bedside Glucose 114 Medications Medications Current Medications Pantoprazole (Protonix Tab) 40 mg DAILY@06 PO Last administered on 11/21/16 06: 07; Admin Dose 40 MG; Start 11/14/16 at 06:00 Diagnostic Test (Pha) (Accu-Chek) 1 ea 02 XX Last administered on 11/14/16 02: 38; Admin Dose 1 EA; Start 11/14/16 at 02:00 Lisinopril (Zestril) 10 mg DAILY PO Last administered on 11/20/16 08:43; Admin Dose 10 MG; Start 11/14/16 at 09:00 Miscellaneous Information 1 ea NOTE XX ; Start 11/13/16 at 23:30 Glucose (Glutose) 15 gm Q15M PRN PO DECREASED GLUCOSE; Start 11/13/16 at 23:30 Glucose (Glutose) 22.5 gm Q15M PRN PO DECREASED GLUCOSE; Start 11/13/16 at 23: 30 Glucagon (Glucagen) 1 mg Q15M PRN IM DECREASED GLUCOSE; Start 11/13/16 at 23:30 Glucose (Glutose) 15 gm Q15M PRN BUCCAL DECREASED GLUCOSE; Start 11/13/16 at 23 :30 Docusate Sodium (Colace) 100 mg TID PRN PO CONSTIPATION Last administered on 08:27; Admin Dose 100 MG; Start 11/13/16 at 23:45 Aspirin (Halfprin) 81 mg DAILY PO Last administered on 11/21/16 08:21; Admin Dose 81 MG; Start 11/14/16 at 09:00 Atorvastatin Calcium (Lipitor) 20 mg DAILY@21 PO Last administered on 11/20/16 21:01; Admin Dose 20 MG; Start 11/14/16 at 21:00 Bisacodyl (Dulcolax) 10 mg BID PRN PO CONSTIPATION Last administered on 08:27; Admin Dose 10 MG; Start 11/13/16 at 23:45 Docusate Sodium (Colace) 100 mg BID PO Last administered on 11/21/16 08:19; Admin Dose 100 MG; Start 11/15/16 at 21:00 Senna (Senokot) 1 tab QHS PO Last administered on 11/20/16 21:01; Admin Dose 1 TAB; Start 11/15/16 at 21:00 Acetaminophen (Tylenol Tab) 650 mg Q4H PRN PO PAIN; Start 11/15/16 at 09:30 Bisacodyl (Dulcolax Supp) 10 mg DAILY PRN [place] CONSTIPATION; Start 11/15/16 at 09: 30 Magnesium Hydroxide (Milk Of Mag) 30 ml BID PRN PO CONSTIPATION; Start 11/15/16 at 09:30 Lactulose (Enulose) 20 gm DAILY PRN PO CONSTIPATION; Start 11/15/16 at 09:11 Acetaminophen/ Hydrocodone Bitart ([place] (5/325)) 2 tab Q4H PRN PO PAIN LEVEL 6 -10 Last administered on 11/20/16 08:42; Admin Dose 2 TAB; Start 11/16/16 at 16: 00 Ondansetron HCl (Zofran Inj) 4 mg Q6H PRN IV NAUSEA AND/OR VOMITING Last administered on 11/17/16 10:16; Admin Dose 4 MG; Start 11/17/16 at 10:00 Insulin Glargine (Lantus) 5 unit BID@08,20 SC Last administered on 11/21/16 08: 21; Admin Dose 5 UNIT; Start 11/20/16 at 20:00 BLAS SOLANO Nov 21, 2016 11:41
--- NOTE | 2016-11-21 12:05 | CONS ---
Date/Time of Note Date/Time of Note DATE: 11/21/16 TIME: 11:54 Consult Date/Type/Reason Admit Date/Time Nov 13, 2016 at 21:52 Type of Consultation: neuro Subjective Comfortable, up for activity Objective Lungs clear anteriorly Moderate -min assist ambulation Vital Signs Date Time Temp Pulse Resp B/P Pulse Ox O2 Delivery O2 Flow Rate FiO2 11/20/16 20:00 98.5 87 18 127/73 96 11/19/16 20:44 21 Intake and Output 11/20/16 11/20/16 11/21/16 15:00 23:00 07:00 Intake Total 1200 ml 600 ml 300 ml Output Total 500 ml 350 ml 700 ml Balance 700 ml 250 ml -400 ml Results/Medications Result Diagram: 11/21/16 06 Results 24 hrs Laboratory Tests Test 11/20/16 17:23 11/20/16 21:04 11/21/16 06:06 11/21/16 07:52 Bedside Glucose 84 84 114 Sodium Level 140 Potassium Level 3.7 Chloride Level 103 Carbon Dioxide Level 29 Anion Gap 12 Blood Urea Nitrogen 28 H Creatinine 0.78 Glucose Level 109 Calcium Level 8.9 Medications Current Medications Pantoprazole (Protonix Tab) 40 mg DAILY@06 PO Last administered on 11/21/16 06: 07; Admin Dose 40 MG; Start 11/14/16 at 06:00 Diagnostic Test (Pha) (Accu-Chek) 1 ea 02 XX Last administered on 11/14/16 02: 38; Admin Dose 1 EA; Start 11/14/16 at 02:00 Lisinopril (Zestril) 10 mg DAILY PO Last administered on 11/20/16 08:43; Admin Dose 10 MG; Start 11/14/16 at 09:00 Miscellaneous Information 1 ea NOTE XX ; Start 11/13/16 at 23:30 Glucose (Glutose) 15 gm Q15M PRN PO DECREASED GLUCOSE; Start 11/13/16 at 23:30 Glucose (Glutose) 22.5 gm Q15M PRN PO DECREASED GLUCOSE; Start 11/13/16 at 23: 30 Glucagon (Glucagen) 1 mg Q15M PRN IM DECREASED GLUCOSE; Start 11/13/16 at 23:30 Glucose (Glutose) 15 gm Q15M PRN BUCCAL DECREASED GLUCOSE; Start 11/13/16 at 23 :30 Docusate Sodium (Colace) 100 mg TID PRN PO CONSTIPATION Last administered on 08:27; Admin Dose 100 MG; Start 11/13/16 at 23:45 Aspirin (Halfprin) 81 mg DAILY PO Last administered on 11/21/16 08:21; Admin Dose 81 MG; Start 11/14/16 at 09:00 Atorvastatin Calcium (Lipitor) 20 mg DAILY@21 PO Last administered on 11/20/16 21:01; Admin Dose 20 MG; Start 11/14/16 at 21:00 Bisacodyl (Dulcolax) 10 mg BID PRN PO CONSTIPATION Last administered on 08:27; Admin Dose 10 MG; Start 11/13/16 at 23:45 Docusate Sodium (Colace) 100 mg BID PO Last administered on 11/21/16 08:19; Admin Dose 100 MG; Start 11/15/16 at 21:00 Senna (Senokot) 1 tab QHS PO Last administered on 11/20/16 21:01; Admin Dose 1 TAB; Start 11/15/16 at 21:00 Acetaminophen (Tylenol Tab) 650 mg Q4H PRN PO PAIN; Start 11/15/16 at 09:30 Bisacodyl (Dulcolax Supp) 10 mg DAILY PRN [place] CONSTIPATION; Start 11/15/16 at 09: 30 Magnesium Hydroxide (Milk Of Mag) 30 ml BID PRN PO CONSTIPATION; Start 11/15/16 at 09:30 Lactulose (Enulose) 20 gm DAILY PRN PO CONSTIPATION; Start 11/15/16 at 09:11 Acetaminophen/ Hydrocodone Bitart ([place] (5/325)) 2 tab Q4H PRN PO PAIN LEVEL 6 -10 Last administered on 11/20/16 08:42; Admin Dose 2 TAB; Start 11/16/16 at 16: 00 Ondansetron HCl (Zofran Inj) 4 mg Q6H PRN IV NAUSEA AND/OR VOMITING Last administered on 11/17/16 10:16; Admin Dose 4 MG; Start 11/17/16 at 10:00 Insulin Glargine (Lantus) 5 unit BID@08,20 SC Last administered on 11/21/16 08: 21; Admin Dose 5 UNIT; Start 11/20/16 at 20:00 Assessment/Plan Chief Complaint/Hosp Course Rehabilitation -Guillian [place] Syndrome Patient motivated for all activities, continue current rehab plan Diabetes Mellitus-under good control Hypertension Problems: FERNANDA MARIE MD Nov 21, 2016 12:04
[2016-11-21] MEDS: HYDROCODONE/APAP (5/325) TAB PO PRN (19:46)
[2016-11-21 19:52] VITALS: BP 101/62; PULSE 80; RESP 16
[2016-11-21] MEDS: ATORVASTATIN 20 MG TAB PO SCH (20:28)
[2016-11-21] MEDS: SENNA TAB PO SCH (20:28)
[2016-11-22] MEDS: ACCUCHECK AT 2AM (Patients on SS coverage) XX SCH (02:00)
[2016-11-22] MEDS: PANTOPRAZOLE (EC) 40 MG TAB PO SCH (06:26)
[2016-11-22] MEDS: Insulin NOVOLOG SS MODERATE Algorithm (SS with meals and bedtime) SC SCH ×4 (07:35→21:00)
[2016-11-22] MEDS: JENTADUETO PO SCH ×2 (08:00→17:32)
[2016-11-22] MEDS: INSULIN GLARGINE [LANtus] 3 ML PEN SC SCH ×2 (08:00→20:48)
[2016-11-22] MEDS: ASPIRIN (EC) 81 MG TAB PO SCH (08:44)
[2016-11-22] MEDS: LISINOPRIL 10 MG TAB PO SCH (08:44)
[2016-11-22] MEDS: DOCUSATE SODIUM 100 MG CAP PO SCH ×2 (08:44→20:45)
[2016-11-22 08:49] VITALS: BP 114/73; RESP 18
--- NOTE | 2016-11-22 15:12 | PN ---
Date/Time of Note Date/Time of Note DATE: 11/22/16 TIME: 15:11 Assessment/Plan VTE Prophylaxis VTE Prophylaxis Intervention: other Lines/Catheters [facility] Urinary Cath still in place: No Assessment/Plan Chief Complaint/Hosp Course Patient is doing fine GB SYNDROME UTI S/P IVIG Patient is getting physical therapy daily PT OT Problems: Subjective 24 Hr Interval Summary Gastrointestinal: pain Exam/Review of Systems Vital Signs Vitals Vital Signs Date Time Temp Pulse Resp B/P Pulse Ox O2 Delivery O2 Flow Rate FiO2 11/22/16 08:49 98.0 80 18 114/73 95 11/21/16 19:52 Room Air 11/19/16 20:44 21 Intake and Output 11/21/16 11/21/16 11/22/16 15:00 23:00 07:00 Intake Total 800 ml 1730 ml 1450 ml Output Total 731 ml 300 ml Balance 800 ml 999 ml 1150 ml Exam Respiratory: clear to auscultation Cardiovascular: regular rate and rhythm Gastrointestinal: soft Musculoskeletal: nl extremities to inspection Extremities: normal pulses Neurological: other (WEAKNESS BETTER) Results Result Diagram: 11/21/16 0606 Results 24 hrs Laboratory Tests Test 11/21/16 17:02 11/21/16 20:27 11/22/16 03:18 11/22/16 07:30 Bedside Glucose 102 195 95 117 Test 11/22/16 12:00 Bedside Glucose 103 Medications Medications Current Medications Pantoprazole (Protonix Tab) 40 mg DAILY@06 PO Last administered on 11/22/16 06: 26; Admin Dose 40 MG; Start 11/14/16 at 06:00 Diagnostic Test (Pha) (Accu-Chek) 1 ea 02 XX Last administered on 11/14/16 02: 38; Admin Dose 1 EA; Start 11/14/16 at 02:00 Lisinopril (Zestril) 10 mg DAILY PO Last administered on 11/22/16 08:44; Admin Dose 10 MG; Start 11/14/16 at 09:00 Miscellaneous Information 1 ea NOTE XX ; Start 11/13/16 at 23:30 Glucose (Glutose) 15 gm Q15M PRN PO DECREASED GLUCOSE; Start 11/13/16 at 23:30 Glucose (Glutose) 22.5 gm Q15M PRN PO DECREASED GLUCOSE; Start 11/13/16 at 23: 30 Glucagon (Glucagen) 1 mg Q15M PRN IM DECREASED GLUCOSE; Start 11/13/16 at 23:30 Glucose (Glutose) 15 gm Q15M PRN BUCCAL DECREASED GLUCOSE; Start 11/13/16 at 23 :30 Docusate Sodium (Colace) 100 mg TID PRN PO CONSTIPATION Last administered on 08:27; Admin Dose 100 MG; Start 11/13/16 at 23:45 Aspirin (Halfprin) 81 mg DAILY PO Last administered on 11/22/16 08:44; Admin Dose 81 MG; Start 11/14/16 at 09:00 Atorvastatin Calcium (Lipitor) 20 mg DAILY@21 PO Last administered on 11/21/16 20:28; Admin Dose 20 MG; Start 11/14/16 at 21:00 Bisacodyl (Dulcolax) 10 mg BID PRN PO CONSTIPATION Last administered on 08:27; Admin Dose 10 MG; Start 11/13/16 at 23:45 Docusate Sodium (Colace) 100 mg BID PO Last administered on 11/22/16 08:44; Admin Dose 100 MG; Start 11/15/16 at 21:00 Senna (Senokot) 1 tab QHS PO Last administered on 11/21/16 20:28; Admin Dose 1 TAB; Start 11/15/16 at 21:00 Acetaminophen (Tylenol Tab) 650 mg Q4H PRN PO PAIN; Start 11/15/16 at 09:30 Bisacodyl (Dulcolax Supp) 10 mg DAILY PRN [place] CONSTIPATION; Start 11/15/16 at 09: 30 Magnesium Hydroxide (Milk Of Mag) 30 ml BID PRN PO CONSTIPATION; Start 11/15/16 at 09:30 Lactulose (Enulose) 20 gm DAILY PRN PO CONSTIPATION; Start 11/15/16 at 09:11 Acetaminophen/ Hydrocodone Bitart ([place] (5/325)) 2 tab Q4H PRN PO PAIN LEVEL 6 -10 Last administered on 11/21/16 19:46; Admin Dose 2 TAB; Start 11/16/16 at 16: 00 Ondansetron HCl (Zofran Inj) 4 mg Q6H PRN IV NAUSEA AND/OR VOMITING Last administered on 11/17/16 10:16; Admin Dose 4 MG; Start 11/17/16 at 10:00 Insulin Glargine (Lantus) 5 unit BID@08,20 SC Last administered on 11/22/16 08: 00; Admin Dose 5 UNIT; Start 11/20/16 at 20:00 NYASIA JOSEPH MD Nov 22, 2016 15:12
[2016-11-22 19:41] VITALS: BP 125/75; RESP 18
[2016-11-22] MEDS: SENNA TAB PO SCH (20:44)
[2016-11-22] MEDS: ATORVASTATIN 20 MG TAB PO SCH (20:45)
[2016-11-23] MEDS: ACCUCHECK AT 2AM (Patients on SS coverage) XX SCH (02:00)
[2016-11-23] MEDS: PANTOPRAZOLE (EC) 40 MG TAB PO SCH (06:17)
[2016-11-23 07:30] VITALS: BP 111/72; RESP 18
[2016-11-23] MEDS: Insulin NOVOLOG SS MODERATE Algorithm (SS with meals and bedtime) SC SCH ×4 (07:35→21:00)
[2016-11-23] MEDS: HYDROCODONE/APAP (5/325) TAB PO PRN ×2 (08:05→12:33)
[2016-11-23] MEDS: DOCUSATE SODIUM 100 MG CAP PO SCH ×2 (08:06→21:02)
[2016-11-23] MEDS: JENTADUETO PO SCH ×2 (08:06→17:31)
[2016-11-23] MEDS: ASPIRIN (EC) 81 MG TAB PO SCH (08:06)
[2016-11-23] MEDS: INSULIN GLARGINE [LANtus] 3 ML PEN SC SCH ×2 (08:11→21:01)
[2016-11-23] MEDS: LISINOPRIL 10 MG TAB PO SCH (09:00)
--- NOTE | 2016-11-23 11:08 | CONS ---
Date/Time of Note Date/Time of Note DATE: 11/23/16 TIME: 11:07 Consult Date/Type/Reason Admit Date/Time Nov 13, 2016 at 21:52 Type of Consultation: neuro Objective Vital Signs Date Time Temp Pulse Resp B/P Pulse Ox O2 Delivery O2 Flow Rate FiO2 11/22/16 19:41 98.7 90 18 125/75 94 11/21/16 19:52 Room Air 11/19/16 20:44 21 Intake and Output 11/22/16 11/22/16 11/23/16 15:00 23:00 07:00 Intake Total 800 ml 900 ml Output Total 150 ml 400 ml Balance -150 ml 800 ml 500 ml INTERDISCIPLINARY TEAM CONFERENCE BOWEL- Cont BLADDER-Cont SKIN- intact OT- DRESSING-minimal assist BATHING-animal assist TOILETING-minimal assist PT- BED MOBILITY-minimal assist TRANSFERS-minimal assist AMBULATION-minimal assist 50 feet A/P- Interdisciplinary team conference held today. Please see interdisciplinary sheet. Working toward d.c. on 11/27 with post discharge follow up of physical therapy, occupational therapy. Results/Medications Result Diagram: 11/21/16 0606 Results 24 hrs Laboratory Tests Test 11/22/16 12:00 11/22/16 17:12 11/22/16 20:42 11/23/16 07:46 Bedside Glucose 103 159 103 96 Medications Current Medications Pantoprazole (Protonix Tab) 40 mg DAILY@06 PO Last administered on 11/23/16 06 :17; Admin Dose 40 MG; Start 11/14/16 at 06:00 Diagnostic Test (Pha) (Accu-Chek) 1 ea 02 XX Last administered on 11/14/16 02: 38; Admin Dose 1 EA; Start 11/14/16 at 02:00 Lisinopril (Zestril) 10 mg DAILY PO Last administered on 11/22/16 08:44; Admin Dose 10 MG; Start 11/14/16 at 09:00 Miscellaneous Information 1 ea NOTE XX ; Start 11/13/16 at 23:30 Glucose (Glutose) 15 gm Q15M PRN PO DECREASED GLUCOSE; Start 11/13/16 at 23:30 Glucose (Glutose) 22.5 gm Q15M PRN PO DECREASED GLUCOSE; Start 11/13/16 at 23: 30 Glucagon (Glucagen) 1 mg Q15M PRN IM DECREASED GLUCOSE; Start 11/13/16 at 23:30 Glucose (Glutose) 15 gm Q15M PRN BUCCAL DECREASED GLUCOSE; Start 11/13/16 at 23 :30 Docusate Sodium (Colace) 100 mg TID PRN PO CONSTIPATION Last administered on 08:27; Admin Dose 100 MG; Start 11/13/16 at 23:45 Aspirin (Halfprin) 81 mg DAILY PO Last administered on 11/23/16 08:06; Admin Dose 81 MG; Start 11/14/16 at 09:00 Atorvastatin Calcium (Lipitor) 20 mg DAILY@21 PO Last administered on 11/22/16 20:45; Admin Dose 20 MG; Start 11/14/16 at 21:00 Bisacodyl (Dulcolax) 10 mg BID PRN PO CONSTIPATION Last administered on 08:27; Admin Dose 10 MG; Start 11/13/16 at 23:45 Docusate Sodium (Colace) 100 mg BID PO Last administered on 11/23/16 08:06; Admin Dose 100 MG; Start 11/15/16 at 21:00 Senna (Senokot) 1 tab QHS PO Last administered on 11/22/16 20:44; Admin Dose 1 TAB; Start 11/15/16 at 21:00 Acetaminophen (Tylenol Tab) 650 mg Q4H PRN PO PAIN; Start 11/15/16 at 09:30 Bisacodyl (Dulcolax Supp) 10 mg DAILY PRN [place] CONSTIPATION; Start 11/15/16 at 09: 30 Magnesium Hydroxide (Milk Of Mag) 30 ml BID PRN PO CONSTIPATION; Start 11/15/16 at 09:30 Lactulose (Enulose) 20 gm DAILY PRN PO CONSTIPATION; Start 11/15/16 at 09:11 Acetaminophen/ Hydrocodone Bitart ([place] (5/325)) 2 tab Q4H PRN PO PAIN LEVEL 6 -10 Last administered on 11/23/16 08:05; Admin Dose 2 TAB; Start 11/16/16 at 16: 00 Ondansetron HCl (Zofran Inj) 4 mg Q6H PRN IV NAUSEA AND/OR VOMITING Last administered on 11/17/16 10:16; Admin Dose 4 MG; Start 11/17/16 at 10:00 Insulin Glargine (Lantus) 5 unit BID@08,20 SC Last administered on 11/23/16t 08 :11; Admin Dose 5 UNIT; Start 11/20/16 at 20:00 FERNANDA MARIE MD Nov 23, 2016 11:08 FERNANDA MARIE MD Nov 23, 2016 11:08
[2016-11-23 20:00] VITALS: BP 104/62; RESP 18
--- NOTE | 2016-11-23 21:00 | PN ---
Date/Time of Note Date/Time of Note DATE: 11/23/16 TIME: 20:59 Assessment/Plan VTE Prophylaxis VTE Prophylaxis Intervention: other Lines/Catheters [facility] Saline Lock Urinary Cath still in place: No Assessment/Plan Chief Complaint/Hosp Course Patient is doing fine GB SYNDROME UTI S/P IVIG Patient is getting physical therapy daily PT OT Problems: Subjective 24 Hr Interval Summary Respiratory: no complaints Exam/Review of Systems Vital Signs Vitals Vital Signs Date Time Temp Pulse Resp B/P Pulse Ox O2 Delivery O2 Flow Rate FiO2 11/23/16 07:30 98.1 81 18 111/72 99 11/21/16 19:52 Room Air 11/19/16 20:44 21 Intake and Output 11/22/16 11/22/16 11/23/16 15:00 23:00 07:00 Intake Total 800 ml 900 ml Output Total 150 ml 400 ml Balance -150 ml 800 ml 500 ml Exam Neck: supple Respiratory: clear to auscultation Cardiovascular: regular rate and rhythm Gastrointestinal: soft Results Result Diagram: 11/21/16 0606 Results 24 hrs Laboratory Tests Test 11/23/16 07:46 11/23/16 12:00 11/23/16 17:08 Bedside Glucose 96 157 136 Medications Medications Current Medications Pantoprazole (Protonix Tab) 40 mg DAILY@06 PO Last administered on 11/23/16 06 :17; Admin Dose 40 MG; Start 11/14/16 at 06:00 Diagnostic Test (Pha) (Accu-Chek) 1 ea 02 XX Last administered on 11/14/16 02: 38; Admin Dose 1 EA; Start 11/14/16 at 02:00 Lisinopril (Zestril) 10 mg DAILY PO Last administered on 11/22/16 08:44; Admin Dose 10 MG; Start 11/14/16 at 09:00 Miscellaneous Information 1 ea NOTE XX ; Start 11/13/16 at 23:30 Glucose (Glutose) 15 gm Q15M PRN PO DECREASED GLUCOSE; Start 11/13/16 at 23:30 Glucose (Glutose) 22.5 gm Q15M PRN PO DECREASED GLUCOSE; Start 11/13/16 at 23: 30 Glucagon (Glucagen) 1 mg Q15M PRN IM DECREASED GLUCOSE; Start 11/13/16 at 23:30 Glucose (Glutose) 15 gm Q15M PRN BUCCAL DECREASED GLUCOSE; Start 11/13/16 at 23 :30 Docusate Sodium (Colace) 100 mg TID PRN PO CONSTIPATION Last administered on 08:27; Admin Dose 100 MG; Start 11/13/16 at 23:45 Aspirin (Halfprin) 81 mg DAILY PO Last administered on 11/23/16 08:06; Admin Dose 81 MG; Start 11/14/16 at 09:00 Atorvastatin Calcium (Lipitor) 20 mg DAILY@21 PO Last administered on 11/22/16 20:45; Admin Dose 20 MG; Start 11/14/16 at 21:00 Bisacodyl (Dulcolax) 10 mg BID PRN PO CONSTIPATION Last administered on 08:27; Admin Dose 10 MG; Start 11/13/16 at 23:45 Docusate Sodium (Colace) 100 mg BID PO Last administered on 11/23/16 08:06; Admin Dose 100 MG; Start 11/15/16 at 21:00 Senna (Senokot) 1 tab QHS PO Last administered on 11/22/16 20:44; Admin Dose 1 TAB; Start 11/15/16 at 21:00 Acetaminophen (Tylenol Tab) 650 mg Q4H PRN PO PAIN; Start 11/15/16 at 09:30 Bisacodyl (Dulcolax Supp) 10 mg DAILY PRN [place] CONSTIPATION; Start 11/15/16 at 09: 30 Magnesium Hydroxide (Milk Of Mag) 30 ml BID PRN PO CONSTIPATION; Start 11/15/16 at 09:30 Lactulose (Enulose) 20 gm DAILY PRN PO CONSTIPATION; Start 11/15/16 at 09:11 Acetaminophen/ Hydrocodone Bitart ([place] (5/325)) 2 tab Q4H PRN PO PAIN LEVEL 6 -10 Last administered on 11/23/16 12:33; Admin Dose 2 TAB; Start 11/16/16 at 16: 00 Ondansetron HCl (Zofran Inj) 4 mg Q6H PRN IV NAUSEA AND/OR VOMITING Last administered on 11/17/16 10:16; Admin Dose 4 MG; Start 11/17/16 at 10:00 Insulin Glargine (Lantus) 5 unit BID@08,20 SC Last administered on 11/23/16t 08 :11; Admin Dose 5 UNIT; Start 11/20/16 at 20:00 NYASIA JOSEPH MD Nov 23, 2016 21:00
[2016-11-23] MEDS: SENNA TAB PO SCH (21:02)
[2016-11-23] MEDS: ATORVASTATIN 20 MG TAB PO SCH (21:02)
[2016-11-24] MEDS: ACCUCHECK AT 2AM (Patients on SS coverage) XX SCH (02:00)
[2016-11-24] MEDS: PANTOPRAZOLE (EC) 40 MG TAB PO SCH (06:14)
[2016-11-24] MEDS: Insulin NOVOLOG SS MODERATE Algorithm (SS with meals and bedtime) SC SCH ×4 (07:35→21:06)
[2016-11-24 08:00] VITALS: BP 114/61; RESP 18
[2016-11-24] MEDS: DOCUSATE SODIUM 100 MG CAP PO SCH ×2 (08:09→21:01)
[2016-11-24] MEDS: ASPIRIN (EC) 81 MG TAB PO SCH (08:09)
[2016-11-24] MEDS: JENTADUETO PO SCH ×2 (08:10→17:38)
[2016-11-24] MEDS: LISINOPRIL 10 MG TAB PO SCH (08:10)
[2016-11-24] MEDS: INSULIN GLARGINE [LANtus] 3 ML PEN SC SCH ×2 (08:15→21:03)
[2016-11-24] MEDS: HYDROCODONE/APAP (5/325) TAB PO PRN (10:06)
--- NOTE | 2016-11-24 13:13 | CONS ---
Date/Time of Note Date/Time of Note DATE: 11/24/16 TIME: 13:12 Consult Date/Type/Reason Admit Date/Time Nov 13, 2016 at 21:52 Type of Consultation: neuro Subjective Comfortable Objective Lungs clear anterior Min assist Vital Signs Date Time Temp Pulse Resp B/P Pulse Ox O2 Delivery O2 Flow Rate FiO2 11/24/16 08:00 98.0 75 18 114/61 96 11/21/16 19:52 Room Air Intake and Output 11/23/16 11/23/16 11/24/16 15:00 23:00 07:00 Intake Total 970 ml 240 ml Output Total 1210 ml 1450 ml Balance -240 ml -1210 ml Results/Medications Result Diagram: 11/21/16 0606 Results 24 hrs Laboratory Tests Test 11/23/16 17:08 11/23/16 20:59 11/24/16 08:01 11/24/16 12:03 Bedside Glucose 136 147 123 86 Medications Current Medications Pantoprazole (Protonix Tab) 40 mg DAILY@06 PO Last administered on 11/24/16 06 :14; Admin Dose 40 MG; Start 11/14/16 at 06:00 Diagnostic Test (Pha) (Accu-Chek) 1 ea 02 XX Last administered on 11/14/16 02: 38; Admin Dose 1 EA; Start 11/14/16 at 02:00 Lisinopril (Zestril) 10 mg DAILY PO Last administered on 11/24/16 08:10; Admin Dose 10 MG; Start 11/14/16 at 09:00 Miscellaneous Information 1 ea NOTE XX ; Start 11/13/16 at 23:30 Glucose (Glutose) 15 gm Q15M PRN PO DECREASED GLUCOSE; Start 11/13/16 at 23:30 Glucose (Glutose) 22.5 gm Q15M PRN PO DECREASED GLUCOSE; Start 11/13/16 at 23: 30 Glucagon (Glucagen) 1 mg Q15M PRN IM DECREASED GLUCOSE; Start 11/13/16 at 23:30 Glucose (Glutose) 15 gm Q15M PRN BUCCAL DECREASED GLUCOSE; Start 11/13/16 at 23 :30 Docusate Sodium (Colace) 100 mg TID PRN PO CONSTIPATION Last administered on 08:27; Admin Dose 100 MG; Start 11/13/16 at 23:45 Aspirin (Halfprin) 81 mg DAILY PO Last administered on 11/24/16 08:09; Admin Dose 81 MG; Start 11/14/16 at 09:00 Atorvastatin Calcium (Lipitor) 20 mg DAILY@21 PO Last administered on 21:02; Admin Dose 20 MG; Start 11/14/16 at 21:00 Bisacodyl (Dulcolax) 10 mg BID PRN PO CONSTIPATION Last administered on 08:27; Admin Dose 10 MG; Start 11/13/16 at 23:45 Docusate Sodium (Colace) 100 mg BID PO Last administered on 11/24/16 08:09; Admin Dose 100 MG; Start 11/15/16 at 21:00 Senna (Senokot) 1 tab QHS PO Last administered on 11/23/16 21:02; Admin Dose 1 TAB; Start 11/15/16 at 21:00 Acetaminophen (Tylenol Tab) 650 mg Q4H PRN PO PAIN; Start 11/15/16 at 09:30 Bisacodyl (Dulcolax Supp) 10 mg DAILY PRN [place] CONSTIPATION; Start 11/15/16 at 09: 30 Magnesium Hydroxide (Milk Of Mag) 30 ml BID PRN PO CONSTIPATION; Start 11/15/16 at 09:30 Lactulose (Enulose) 20 gm DAILY PRN PO CONSTIPATION; Start 11/15/16 at 09:11 Acetaminophen/ Hydrocodone Bitart ([place] (5/325)) 2 tab Q4H PRN PO PAIN LEVEL 6 -10 Last administered on 11/24/16 10:06; Admin Dose 2 TAB; Start 11/16/16 at 16: 00 Ondansetron HCl (Zofran Inj) 4 mg Q6H PRN IV NAUSEA AND/OR VOMITING Last administered on 11/17/16 10:16; Admin Dose 4 MG; Start 11/17/16 at 10:00 Insulin Glargine (Lantus) 5 unit BID@08,20 SC Last administered on 11/24/16 08 :15; Admin Dose 5 UNIT; Start 11/20/16 at 20:00 Assessment/Plan Additional Assessment/Plan 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 Diabetes Mellitus-under good control Hypertension Functional Impact of comorbidity-patient motor strength does affect functional status, and he has been progressing nicely with the interdisciplinary rehabilitative treatment plan FERNANDA MARIE MD Nov 24, 2016 13:13
[2016-11-24 20:00] VITALS: BP 109/61; RESP 18
--- NOTE | 2016-11-24 20:39 | PN ---
Date/Time of Note Date/Time of Note DATE: 11/24/16 TIME: 20:38 Assessment/Plan VTE Prophylaxis VTE Prophylaxis Intervention: other Lines/Catheters IV [facility]ter Type (from [facility] Saline Lock Urinary Cath still in place: No Assessment/Plan Chief Complaint/Hosp Course Patient is doing fine GB SYNDROME UTI S/P IVIG Patient is getting physical therapy daily PT OT stable Problems: Subjective 24 Hr Interval Summary Subjective hx not possible: other (better) Gastrointestinal: no complaints Genitourinary: no complaints Exam/Review of Systems Vital Signs Vitals Vital Signs Date Time Temp Pulse Resp B/P Pulse Ox O2 Delivery O2 Flow Rate FiO2 11/24/16 08:00 98.0 75 18 114/61 96 11/21/16 19:52 Room Air Intake and Output 11/23/16 11/23/16 11/24/16 15:00 23:00 07:00 Intake Total 970 ml 240 ml Output Total 1210 ml 1450 ml Balance -240 ml -1210 ml Exam Respiratory: clear to auscultation Cardiovascular: regular rate and rhythm Gastrointestinal: soft Musculoskeletal: range of motion (better) Results Result Diagram: 11/21/16 0606 Results 24 hrs Laboratory Tests Test 11/23/16 20:59 11/24/16 08:01 11/24/16 12:03 11/24/16 17:14 Bedside Glucose 147 123 86 115 Medications Medications Current Medications Pantoprazole (Protonix Tab) 40 mg DAILY@06 PO Last administered on 11/24/16 06 :14; Admin Dose 40 MG; Start 11/14/16 at 06:00 Diagnostic Test (Pha) (Accu-Chek) 1 ea 02 XX Last administered on 11/14/16 02: 38; Admin Dose 1 EA; Start 11/14/16 at 02:00 Lisinopril (Zestril) 10 mg DAILY PO Last administered on 11/24/16 08:10; Admin Dose 10 MG; Start 11/14/16 at 09:00 Miscellaneous Information 1 ea NOTE XX ; Start 11/13/16 at 23:30 Glucose (Glutose) 15 gm Q15M PRN PO DECREASED GLUCOSE; Start 11/13/16 at 23:30 Glucose (Glutose) 22.5 gm Q15M PRN PO DECREASED GLUCOSE; Start 11/13/16 at 23: 30 Glucagon (Glucagen) 1 mg Q15M PRN IM DECREASED GLUCOSE; Start 11/13/16 at 23:30 Glucose (Glutose) 15 gm Q15M PRN BUCCAL DECREASED GLUCOSE; Start 11/13/16 at 23 :30 Docusate Sodium (Colace) 100 mg TID PRN PO CONSTIPATION Last administered on 08:27; Admin Dose 100 MG; Start 11/13/16 at 23:45 Aspirin (Halfprin) 81 mg DAILY PO Last administered on 11/24/16 08:09; Admin Dose 81 MG; Start 11/14/16 at 09:00 Atorvastatin Calcium (Lipitor) 20 mg DAILY@21 PO Last administered on 21:02; Admin Dose 20 MG; Start 11/14/16 at 21:00 Bisacodyl (Dulcolax) 10 mg BID PRN PO CONSTIPATION Last administered on 08:27; Admin Dose 10 MG; Start 11/13/16 at 23:45 Docusate Sodium (Colace) 100 mg BID PO Last administered on 11/24/16 08:09; Admin Dose 100 MG; Start 11/15/16 at 21:00 Senna (Senokot) 1 tab QHS PO Last administered on 11/23/16 21:02; Admin Dose 1 TAB; Start 11/15/16 at 21:00 Acetaminophen (Tylenol Tab) 650 mg Q4H PRN PO PAIN; Start 11/15/16 at 09:30 Bisacodyl (Dulcolax Supp) 10 mg DAILY PRN [place] CONSTIPATION; Start 11/15/16 at 09: 30 Magnesium Hydroxide (Milk Of Mag) 30 ml BID PRN PO CONSTIPATION; Start 11/15/16 at 09:30 Lactulose (Enulose) 20 gm DAILY PRN PO CONSTIPATION; Start 11/15/16 at 09:11 Acetaminophen/ Hydrocodone Bitart ([place] (5/325)) 2 tab Q4H PRN PO PAIN LEVEL 6 -10 Last administered on 11/24/16 10:06; Admin Dose 2 TAB; Start 11/16/16 at 16: 00 Ondansetron HCl (Zofran Inj) 4 mg Q6H PRN IV NAUSEA AND/OR VOMITING Last administered on 11/17/16 10:16; Admin Dose 4 MG; Start 11/17/16 at 10:00 Insulin Glargine (Lantus) 5 unit BID@08,20 SC Last administered on 11/24/16t 08 :15; Admin Dose 5 UNIT; Start 11/20/16 at 20:00 NYASIA JOSEPH MD Nov 24, 2016 20:39
[2016-11-24] MEDS: SENNA TAB PO SCH (21:00)
[2016-11-24] MEDS: ATORVASTATIN 20 MG TAB PO SCH (21:00)
[2016-11-25] MEDS: ACCUCHECK AT 2AM (Patients on SS coverage) XX SCH (02:00)
[2016-11-25] MEDS: PANTOPRAZOLE (EC) 40 MG TAB PO SCH (06:18)
[2016-11-25] MEDS: HYDROCODONE/APAP (5/325) TAB PO PRN ×3 (06:19→20:35)
[2016-11-25] MEDS: Insulin NOVOLOG SS MODERATE Algorithm (SS with meals and bedtime) SC SCH ×4 (07:35→20:38)
[2016-11-25 07:42] VITALS: BP 105/60; RESP 18
[2016-11-25] MEDS: JENTADUETO PO SCH ×2 (08:27→17:43)
[2016-11-25] MEDS: INSULIN GLARGINE [LANtus] 3 ML PEN SC SCH ×2 (08:31→20:38)
[2016-11-25] MEDS: DOCUSATE SODIUM 100 MG CAP PO SCH ×2 (09:18→20:35)
[2016-11-25] MEDS: ASPIRIN (EC) 81 MG TAB PO SCH (09:19)
[2016-11-25] MEDS: LISINOPRIL 10 MG TAB PO SCH (09:23)
--- NOTE | 2016-11-25 11:56 | CONS ---
Date/Time of Note Date/Time of Note DATE: 11/25/16 TIME: 11:55 Consult Date/Type/Reason Admit Date/Time Nov 13, 2016 at 21:52 Type of Consultation: neuro Subjective No new complaints Objective Lungs clear anteriorly Moderate assist ambulation Vital Signs Date Time Temp Pulse Resp B/P Pulse Ox O2 Delivery O2 Flow Rate FiO2 11/25/16 07:42 98.1 72 18 105/60 97 11/21/16 19:52 Room Air Intake and Output 11/24/16 11/24/16 11/25/16 15:00 23:00 07:00 Intake Total 1200 ml 600 ml 200 ml Output Total 400 ml Balance 1200 ml 600 ml -200 ml Results/Medications Result Diagram: 11/21/16 0606 Results 24 hrs Laboratory Tests Test 11/24/16 12:03 11/24/16 17:14 11/24/16 20:57 11/25/16 02:09 Bedside Glucose 86 115 200 85 Test 11/25/16 08:25 Bedside Glucose 101 Medications Current Medications Pantoprazole (Protonix Tab) 40 mg DAILY@06 PO Last administered on 11/25/16 06 :18; Admin Dose 40 MG; Start 11/14/16 at 06:00 Diagnostic Test (Pha) (Accu-Chek) 1 ea 02 XX Last administered on 11/14/16 02: 38; Admin Dose 1 EA; Start 11/14/16 at 02:00 Lisinopril (Zestril) 10 mg DAILY PO Last administered on 11/25/16 09:23; Admin Dose 10 MG; Start 11/14/16 at 09:00 Miscellaneous Information 1 ea NOTE XX ; Start 11/13/16 at 23:30 Glucose (Glutose) 15 gm Q15M PRN PO DECREASED GLUCOSE; Start 11/13/16 at 23:30 Glucose (Glutose) 22.5 gm Q15M PRN PO DECREASED GLUCOSE; Start 11/13/16 at 23: 30 Glucagon (Glucagen) 1 mg Q15M PRN IM DECREASED GLUCOSE; Start 11/13/16 at 23:30 Glucose (Glutose) 15 gm Q15M PRN BUCCAL DECREASED GLUCOSE; Start 11/13/16 at 23 :30 Docusate Sodium (Colace) 100 mg TID PRN PO CONSTIPATION Last administered on 7/ 2/17at 08:27; Admin Dose 100 MG; Start 11/13/16 at 23:45 Aspirin (Halfprin) 81 mg DAILY PO Last administered on 11/25/16 09:19; Admin Dose 81 MG; Start 11/14/16 at 09:00 Atorvastatin Calcium (Lipitor) 20 mg DAILY@21 PO Last administered on 21:00; Admin Dose 20 MG; Start 11/14/16 at 21:00 Bisacodyl (Dulcolax) 10 mg BID PRN PO CONSTIPATION Last administered on 08:27; Admin Dose 10 MG; Start 11/13/16 at 23:45 Docusate Sodium (Colace) 100 mg BID PO Last administered on 11/25/16 09:18; Admin Dose 100 MG; Start 11/15/16 at 21:00 Senna (Senokot) 1 tab QHS PO Last administered on 11/24/16 21:00; Admin Dose 1 TAB; Start 11/15/16 at 21:00 Acetaminophen (Tylenol Tab) 650 mg Q4H PRN PO PAIN; Start 11/15/16 at 09:30 Bisacodyl (Dulcolax Supp) 10 mg DAILY PRN [place] CONSTIPATION; Start 11/15/16 at 09: 30 Magnesium Hydroxide (Milk Of Mag) 30 ml BID PRN PO CONSTIPATION; Start 11/15/16 at 09:30 Lactulose (Enulose) 20 gm DAILY PRN PO CONSTIPATION; Start 11/15/16 at 09:11 Acetaminophen/ Hydrocodone Bitart ([place] (5/325)) 2 tab Q4H PRN PO PAIN LEVEL 6 -10 Last administered on 11/25/16 06:19; Admin Dose 2 TAB; Start 11/16/16 at 16: 00 Ondansetron HCl (Zofran Inj) 4 mg Q6H PRN IV NAUSEA AND/OR VOMITING Last administered on 11/17/16 10:16; Admin Dose 4 MG; Start 11/17/16 at 10:00 Insulin Glargine (Lantus) 5 unit BID@08,20 SC Last administered on 11/25/16 08 :31; Admin Dose 5 UNIT; Start 11/20/16 at 20:00 Assessment/Plan Additional Assessment/Plan 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 Diabetes Mellitus-under good control Hypertension Functional Impact of comorbidity-patient motor strength affecting functional status, patient is adjusting well with current plan FERNANDA MARIE MD Nov 25, 2016 11:55
[2016-11-25 20:00] VITALS: BP 110/61; RESP 18
--- NOTE | 2016-11-25 20:29 | PN ---
Date/Time of Note Date/Time of Note DATE: 11/25/16 TIME: 20:28 Assessment/Plan VTE Prophylaxis VTE Prophylaxis Intervention: other Lines/Catheters [facility] Saline Lock Urinary Cath still in place: No Assessment/Plan Chief Complaint/Hosp Course Patient is doing fine GB SYNDROME UTI S/P IVIG Patient is getting physical therapy daily PT OT stable Problems: Subjective 24 Hr Interval Summary Subjective hx not possible: other (feeling better and stronger) Exam/Review of Systems Vital Signs Vitals Vital Signs Date Time Temp Pulse Resp B/P Pulse Ox O2 Delivery O2 Flow Rate FiO2 11/25/16 07:42 98.1 72 18 105/60 97 11/21/16 19:52 Room Air Intake and Output 11/24/16 11/24/16 11/25/16 15:00 23:00 07:00 Intake Total 1200 ml 600 ml 200 ml Output Total 400 ml Balance 1200 ml 600 ml -200 ml Exam Respiratory: clear to auscultation Cardiovascular: regular rate and rhythm Gastrointestinal: soft Musculoskeletal: nl extremities to inspection Extremities: normal pulses Results Result Diagram: 11/21/16 0606 Results 24 hrs Laboratory Tests Test 11/24/16 20:57 11/25/16 02:09 11/25/16 08:25 11/25/16 12:11 Bedside Glucose 200 85 101 85 Test 11/25/16 17:14 Bedside Glucose 94 Medications Medications Current Medications Pantoprazole (Protonix Tab) 40 mg DAILY@06 PO Last administered on 11/25/16 06 :18; Admin Dose 40 MG; Start 11/14/16 at 06:00 Diagnostic Test (Pha) (Accu-Chek) 1 ea 02 XX Last administered on 11/14/16 02: 38; Admin Dose 1 EA; Start 11/14/16 at 02:00 Lisinopril (Zestril) 10 mg DAILY PO Last administered on 11/25/16 09:23; Admin Dose 10 MG; Start 11/14/16 at 09:00 Miscellaneous Information 1 ea NOTE XX ; Start 11/13/16 at 23:30 Glucose (Glutose) 15 gm Q15M PRN PO DECREASED GLUCOSE; Start 11/13/16 at 23:30 Glucose (Glutose) 22.5 gm Q15M PRN PO DECREASED GLUCOSE; Start 11/13/16 at 23: 30 Glucagon (Glucagen) 1 mg Q15M PRN IM DECREASED GLUCOSE; Start 11/13/16 at 23:30 Glucose (Glutose) 15 gm Q15M PRN BUCCAL DECREASED GLUCOSE; Start 11/13/16 at 23 :30 Docusate Sodium (Colace) 100 mg TID PRN PO CONSTIPATION Last administered on 08:27; Admin Dose 100 MG; Start 11/13/16 at 23:45 Aspirin (Halfprin) 81 mg DAILY PO Last administered on 11/25/16 09:19; Admin Dose 81 MG; Start 11/14/16 at 09:00 Atorvastatin Calcium (Lipitor) 20 mg DAILY@21 PO Last administered on 21:00; Admin Dose 20 MG; Start 11/14/16 at 21:00 Bisacodyl (Dulcolax) 10 mg BID PRN PO CONSTIPATION Last administered on 08:27; Admin Dose 10 MG; Start 11/13/16 at 23:45 Docusate Sodium (Colace) 100 mg BID PO Last administered on 11/25/16 09:18; Admin Dose 100 MG; Start 11/15/16 at 21:00 Senna (Senokot) 1 tab QHS PO Last administered on 11/24/16 21:00; Admin Dose 1 TAB; Start 11/15/16 at 21:00 Acetaminophen (Tylenol Tab) 650 mg Q4H PRN PO PAIN; Start 11/15/16 at 09:30 Bisacodyl (Dulcolax Supp) [address] [place] CONSTIPATION; Start 11/15/16 at 09: 30 Magnesium Hydroxide (Milk Of Mag) 30 ml BID PRN PO CONSTIPATION; Start 11/15/16 at 09:30 Lactulose (Enulose) 20 gm DAILY PRN PO CONSTIPATION; Start 11/15/16 at 09:11 Acetaminophen/ Hydrocodone Bitart ([place] (5/325)) 2 tab Q4H PRN PO PAIN LEVEL 6 -10 Last administered on 11/25/16 13:42; Admin Dose 2 TAB; Start 11/16/16 at 16: 00 Ondansetron HCl (Zofran Inj) 4 mg Q6H PRN IV NAUSEA AND/OR VOMITING Last administered on 11/17/16 10:16; Admin Dose 4 MG; Start 11/17/16 at 10:00 Insulin Glargine (Lantus) 5 unit BID@08,20 SC Last administered on 11/25/16t 08 :31; Admin Dose 5 UNIT; Start 11/20/16 at 20:00 NYASIA JOSEPH MD Nov 25, 2016 20:29
[2016-11-25] MEDS: ATORVASTATIN 20 MG TAB PO SCH (20:35)
[2016-11-25] MEDS: SENNA TAB PO SCH (20:35)
[2016-11-26] MEDS: ACCUCHECK AT 2AM (Patients on SS coverage) XX SCH (02:00)
[2016-11-26] MEDS: PANTOPRAZOLE (EC) 40 MG TAB PO SCH (06:41)
[2016-11-26 07:30] VITALS: BP 11/72; RESP 18
[2016-11-26] MEDS: Insulin NOVOLOG SS MODERATE Algorithm (SS with meals and bedtime) SC SCH ×4 (07:35→20:51)
[2016-11-26] MEDS: JENTADUETO PO SCH ×2 (08:18→17:24)
[2016-11-26] MEDS: HYDROCODONE/APAP (5/325) TAB PO PRN ×2 (08:19→17:24)
[2016-11-26] MEDS: DOCUSATE SODIUM 100 MG CAP PO SCH ×2 (08:19→20:53)
[2016-11-26] MEDS: ASPIRIN (EC) 81 MG TAB PO SCH (08:19)
[2016-11-26] MEDS: INSULIN GLARGINE [LANtus] 3 ML PEN SC SCH ×3 (08:24→21:35)
[2016-11-26] MEDS: LISINOPRIL 10 MG TAB PO SCH (08:25)
--- NOTE | 2016-11-26 12:07 | CONS ---
Date/Time of Note Date/Time of Note DATE: 11/26/16 TIME: 12:07 Consult Date/Type/Reason Admit Date/Time Nov 13, 2016 at 21:52 Type of Consultation: neuro Subjective Comfortable Objective Lungs clear Moderate assist Vital Signs Date Time Temp Pulse Resp B/P Pulse Ox O2 Delivery O2 Flow Rate FiO2 11/25/16 20:00 98.7 74 18 110/61 97 Intake and Output 11/25/16 11/25/16 11/26/16 15:00 23:00 07:00 Intake Total 1250 ml 360 ml 240 ml Output Total 2100 ml 250 ml 1300 ml Balance -850 ml 110 ml -1060 ml Results/Medications Results 24 hrs Laboratory Tests Test 11/25/16 12:11 11/25/16 17:14 11/25/16 20:32 11/26/16 07:58 Bedside Glucose 85 94 107 92 Medications Current Medications Pantoprazole (Protonix Tab) 40 mg DAILY@06 PO Last administered on 11/26/16 06 :41; Admin Dose 40 MG; Start 11/14/16 at 06:00 Diagnostic Test (Pha) (Accu-Chek) 1 ea 02 XX Last administered on 11/14/16 02: 38; Admin Dose 1 EA; Start 11/14/16 at 02:00 Lisinopril (Zestril) 10 mg DAILY PO Last administered on 11/25/16 09:23; Admin Dose 10 MG; Start 11/14/16 at 09:00 Miscellaneous Information 1 ea NOTE XX ; Start 11/13/16 at 23:30 Glucose (Glutose) 15 gm Q15M PRN PO DECREASED GLUCOSE; Start 11/13/16 at 23:30 Glucose (Glutose) 22.5 gm Q15M PRN PO DECREASED GLUCOSE; Start 11/13/16 at 23: 30 Glucagon (Glucagen) 1 mg Q15M PRN IM DECREASED GLUCOSE; Start 11/13/16 at 23:30 Glucose (Glutose) 15 gm Q15M PRN BUCCAL DECREASED GLUCOSE; Start 11/13/16 at 23 :30 Docusate Sodium (Colace) 100 mg TID PRN PO CONSTIPATION Last administered on 08:27; Admin Dose 100 MG; Start 11/13/16 at 23:45 Aspirin (Halfprin) 81 mg DAILY PO Last administered on 11/26/16 08:19; Admin Dose 81 MG; Start 11/14/16 at 09:00 Atorvastatin Calcium (Lipitor) 20 mg DAILY@21 PO Last administered on 20:35; Admin Dose 20 MG; Start 11/14/16 at 21:00 Bisacodyl (Dulcolax) 10 mg BID PRN PO CONSTIPATION Last administered on 08:27; Admin Dose 10 MG; Start 11/13/16 at 23:45 Docusate Sodium (Colace) 100 mg BID PO Last administered on 11/26/16 08:19; Admin Dose 100 MG; Start 11/15/16 at 21:00 Senna (Senokot) 1 tab QHS PO Last administered on 11/25/16 20:35; Admin Dose 1 TAB; Start 11/15/16 at 21:00 Acetaminophen (Tylenol Tab) 650 mg Q4H PRN PO PAIN; Start 11/15/16 at 09:30 Bisacodyl (Dulcolax Supp) 10 mg DAILY PRN [place] CONSTIPATION; Start 11/15/16 at 09: 30 Magnesium Hydroxide (Milk Of Mag) 30 ml BID PRN PO CONSTIPATION; Start 11/15/16 at 09:30 Lactulose (Enulose) 20 gm DAILY PRN PO CONSTIPATION; Start 11/15/16 at 09:11 Acetaminophen/ Hydrocodone Bitart ([place] (5/325)) 2 tab Q4H PRN PO PAIN LEVEL 6 -10 Last administered on 11/26/16 08:19; Admin Dose 2 TAB; Start 11/16/16 at 16: 00 Ondansetron HCl (Zofran Inj) 4 mg Q6H PRN IV NAUSEA AND/OR VOMITING Last administered on 11/17/16 10:16; Admin Dose 4 MG; Start 11/17/16 at 10:00 Insulin Glargine (Lantus) 5 unit BID@08,20 SC Last administered on 11/26/16 08 :24; Admin Dose 5 UNIT; Start 11/20/16 at 20:00 Assessment/Plan Additional Assessment/Plan 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
[2016-11-26 20:02] VITALS: BP 116/68; RESP 18
[2016-11-26] MEDS: SENNA TAB PO SCH (20:51)
[2016-11-26] MEDS: ATORVASTATIN 20 MG TAB PO SCH (20:53)
--- NOTE | 2016-11-26 23:18 | PN ---
Date/Time of Note Date/Time of Note DATE: 11/26/16 TIME: 23:17 Assessment/Plan VTE Prophylaxis VTE Prophylaxis Intervention: other Lines/Catheters [facility] Saline Lock Urinary Cath still in place: No Assessment/Plan Chief Complaint/Hosp Course Patient is doing fine GB SYNDROME UTI treated S/P IVIG Patient is getting physical therapy daily PT OT stable labs am Problems: Subjective 24 Hr Interval Summary Subjective hx not possible: other (doing better) Exam/Review of Systems Vital Signs Vitals Vital Signs Date Time Temp Pulse Resp B/P Pulse Ox O2 Delivery O2 Flow Rate FiO2 11/26/16 20:02 98.6 85 18 116/68 95 Intake and Output 11/25/16 11/25/16 11/26/16 15:00 23:00 07:00 Intake Total 1250 ml 360 ml 240 ml Output Total 2100 ml 250 ml 1300 ml Balance -850 ml 110 ml -1060 ml Exam Neck: supple Respiratory: clear to auscultation Cardiovascular: regular rate and rhythm Gastrointestinal: soft Musculoskeletal: nl extremities to inspection Extremities: normal pulses Results Results 24 hrs Laboratory Tests Test 11/26/16 07:58 11/26/16 12:03 11/26/16 17:00 11/26/16 20:48 Bedside Glucose 92 82 97 68 L Test 11/26/16 21:18 11/26/16 21:34 Bedside Glucose 125 105 Medications Medications Current Medications Pantoprazole (Protonix Tab) 40 mg DAILY@06 PO Last administered on 11/26/16 06 :41; Admin Dose 40 MG; Start 11/14/16 at 06:00 Diagnostic Test (Pha) (Accu-Chek) 1 ea 02 XX Last administered on 11/14/16 02: 38; Admin Dose 1 EA; Start 11/14/16 at 02:00 Lisinopril (Zestril) 10 mg DAILY PO Last administered on 11/25/16 09:23; Admin Dose 10 MG; Start 11/14/16 at 09:00 Miscellaneous Information 1 ea NOTE XX ; Start 11/13/16 at 23:30 Glucose (Glutose) 15 gm Q15M PRN PO DECREASED GLUCOSE; Start 11/13/16 at 23:30 Glucose (Glutose) 22.5 gm Q15M PRN PO DECREASED GLUCOSE; Start 11/13/16 at 23: 30 Glucagon (Glucagen) 1 mg Q15M PRN IM DECREASED GLUCOSE; Start 11/13/16 at 23:30 Glucose (Glutose) 15 gm Q15M PRN BUCCAL DECREASED GLUCOSE; Start 11/13/16 at 23 :30 Docusate Sodium (Colace) 100 mg TID PRN PO CONSTIPATION Last administered on 08:27; Admin Dose 100 MG; Start 11/13/16 at 23:45 Aspirin (Halfprin) 81 mg DAILY PO Last administered on 11/26/16 08:19; Admin Dose 81 MG; Start 11/14/16 at 09:00 Atorvastatin Calcium (Lipitor) 20 mg DAILY@21 PO Last administered on 20:53; Admin Dose 20 MG; Start 11/14/16 at 21:00 Bisacodyl (Dulcolax) 10 mg BID PRN PO CONSTIPATION Last administered on 08:27; Admin Dose 10 MG; Start 11/13/16 at 23:45 Docusate Sodium (Colace) 100 mg BID PO Last administered on 11/26/16 20:53; Admin Dose 100 MG; Start 11/15/16 at 21:00 Senna (Senokot) 1 tab QHS PO Last administered on 11/25/16 20:35; Admin Dose 1 TAB; Start 11/15/16 at 21:00 Acetaminophen (Tylenol Tab) 650 mg Q4H PRN PO PAIN; Start 11/15/16 at 09:30 Bisacodyl (Dulcolax Supp) 10 mg DAILY PRN [place] CONSTIPATION; Start 11/15/16 at 09: 30 Magnesium Hydroxide (Milk Of Mag) 30 ml BID PRN PO CONSTIPATION; Start 11/15/16 at 09:30 Lactulose (Enulose) 20 gm DAILY PRN PO CONSTIPATION; Start 11/15/16 at 09:11 Acetaminophen/ Hydrocodone Bitart ([place] (5/325)) 2 tab Q4H PRN PO PAIN LEVEL 6 -10 Last administered on 11/26/16 17:24; Admin Dose 2 TAB; Start 11/16/16 at 16: 00 Ondansetron HCl (Zofran Inj) 4 mg Q6H PRN IV NAUSEA AND/OR VOMITING Last administered on 11/17/16 10:16; Admin Dose 4 MG; Start 11/17/16 at 10:00 Insulin Glargine (Lantus) 5 unit BID@08,20 SC Last administered on 11/26/16t 08 :24; Admin Dose 5 UNIT; Start 11/20/16 at 20:00 NYASIA JOSEPH MD Nov 26, 2016 23:18
[2016-11-27] MEDS: ACCUCHECK AT 2AM (Patients on SS coverage) XX SCH (02:15)
[2016-11-27] MEDS: PANTOPRAZOLE (EC) 40 MG TAB PO SCH (06:14)
[2016-11-27] MEDS: HYDROCODONE/APAP (5/325) TAB PO PRN ×2 (06:18→17:20)
[2016-11-27 06:46] LABS: ADD SCAN DIFF NO
[2016-11-27 06:50] LABS: BASOPHIL # 0.2 10^3/ul (0.0-0.1); BASOPHILS % 1.9 % (0.0-2.0); EOSINOPHILS # 0.8 10^3/ul (0.0-0.5); EOSINOPHILS % 9.2 % (0.0-7.0); HEMATOCRIT 42.6 % (42.0-52.0); LYMPHOCYTES # 1.8 10^3/ul (0.8-2.9); LYMPHOCYTES % 21.3 % (15.0-51.0); MEAN CORPUSCULAR HEMOGLOBIN 30.7 pg (29.0-33.0); MEAN CORPUSCULAR HGB CONC 32.9 g/dl (32.0-37.0); MEAN CORPUSCULAR VOLUME 93.4 fl (82.0-101.0); MEAN PLATELET VOLUME 8.9 fl (7.4-10.4); MONOCYTE # 0.7 10^3/ul (0.3-0.9); MONOCYTES % 8.6 % (0.0-11.0); NEUTROPHILS % 58.6 % (39.0-77.0); PLATELET COUNT 330 10^3/UL (140-415); RED BLOOD COUNT 4.56 10^6/ul (4.70-6.10); RED CELL DISTRIBUTION WIDTH 12.8 % (11.5-14.5); WHITE BLOOD COUNT 8.6 10^3/ul (4.8-10.8)
[2016-11-27] MEDS: Insulin NOVOLOG SS MODERATE Algorithm (SS with meals and bedtime) SC SCH ×4 (07:35→20:20)
[2016-11-27 07:47] VITALS: BP 100/67; RESP 18
[2016-11-27 07:47] LABS: ALBUMIN 4.4 g/dl (3.3-4.9); ALBUMIN/GLOBULIN RATIO 1.57; BILIRUBIN,INDIRECT 0.2 mg/dl (0-1.1); BILIRUBIN,TOTAL 0.2 mg/dl (0.2-1.3); CALCIUM 9.3 mg/dl (8.4-10.2); CREATININE 0.61 mg/dl (0.61-1.24); POTASSIUM 3.9 mmol/L (3.5-5.1); TOTAL PROTEIN 7.2 g/dl (6.1-8.1)
[2016-11-27] MEDS: INSULIN GLARGINE [LANtus] 3 ML PEN SC SCH ×2 (08:33→20:26)
[2016-11-27] MEDS: ASPIRIN (EC) 81 MG TAB PO SCH (08:33)
[2016-11-27] MEDS: DOCUSATE SODIUM 100 MG CAP PO SCH ×2 (08:33→20:20)
[2016-11-27] MEDS: JENTADUETO PO SCH ×2 (08:34→17:21)
[2016-11-27] MEDS: LISINOPRIL 10 MG TAB PO SCH (08:34)
--- NOTE | 2016-11-27 11:47 | PN ---
Date/Time of Note Date/Time of Note DATE: 11/27/16 TIME: 11:46 Assessment/Plan VTE Prophylaxis VTE Prophylaxis Intervention: ambulation Lines/Catheters IV [facility] Type (from [facility] Saline Lock Urinary Cath still in place: No Assessment/Plan Chief Complaint/Hosp Course 1. Diabetes Mellitus, controlled 2. 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 Discharge soon Subjective 24 Hr Interval Summary Constitutional: improved, no complaints Exam/Review of Systems Vital Signs Vitals Vital Signs Date Time Temp Pulse Resp B/P Pulse Ox O2 Delivery O2 Flow Rate FiO2 11/27/16 07:47 98.4 73 18 100/67 99 Intake and Output 11/26/16 11/26/16 11/27/16 15:00 23:00 07:00 Intake Total 940 ml 850 ml Output Total 1060 ml 800 ml Balance -120 ml 50 ml Exam Constitutional: alert, oriented Respiratory: clear to auscultation Cardiovascular: regular rate and rhythm Musculoskeletal: muscle weakness (lef leg) Results Result Diagram: 11/27/1623 11/27/16 0623 Results 24 hrs Laboratory Tests Test 11/26/16 12:03 11/26/16 17:00 11/26/16 20:48 11/26/16 21:18 Bedside Glucose 82 97 68 L 125 Test 11/26/16 21:34 11/27/16 06:23 11/27/16 07:48 Bedside Glucose 105 128 White Blood Count 8.6 Red Blood Count 4.56 L Hemoglobin 14.0 Hematocrit 42.6 Mean Corpuscular Volume 93.4 Mean Corpuscular Hemoglobin 30.7 Mean Corpuscular Hemoglobin Concent 32.9 Red Cell Distribution Width 12.8 Platelet Count 330 Mean Platelet Volume 8.9 Neutrophils % 58.6 Lymphocytes % 21.3 Monocytes % 8.6 Eosinophils % 9.2 H Basophils % 1.9 Nucleated Red Blood Cells % 0.0 Neutrophils # 5.0 Lymphocytes # 1.8 Monocytes # 0.7 Eosinophils # 0.8 H Basophils # 0.2 H Nucleated Red Blood Cells # 0.0 Sodium Level 132 L Potassium Level 3.9 Chloride Level 98 Carbon Dioxide Level 28 Anion Gap 10 Blood Urea Nitrogen 25 H Creatinine 0.61 Glucose Level 107 Calcium Level 9.3 Total Bilirubin 0.2 Direct Bilirubin 0.00 Indirect Bilirubin 0.2 Aspartate Amino Transf (AST/SGOT) 40 Alanine Aminotransferase (ALT/SGPT) 58 Alkaline Phosphatase 47 Total Protein 7.2 Albumin 4.4 Globulin 2.80 Albumin/Globulin Ratio 1.57 Medications Medications Current Medications Pantoprazole (Protonix Tab) 40 mg DAILY@06 PO Last administered on 11/27/16 06 :14; Admin Dose 40 MG; Start 11/14/16 at 06:00 Diagnostic Test (Pha) (Accu-Chek) 1 ea 02 XX Last administered on 11/14/16 02: 38; Admin Dose 1 EA; Start 11/14/16 at 02:00 Lisinopril (Zestril) 10 mg DAILY PO Last administered on 11/27/16 08:34; Admin Dose 10 MG; Start 11/14/16 at 09:00 Miscellaneous Information 1 ea NOTE XX ; Start 11/13/16 at 23:30 Glucose (Glutose) 15 gm Q15M PRN PO DECREASED GLUCOSE; Start 11/13/16 at 23:30 Glucose (Glutose) 22.5 gm Q15M PRN PO DECREASED GLUCOSE; Start 11/13/16 at 23: 30 Glucagon (Glucagen) 1 mg Q15M PRN IM DECREASED GLUCOSE; Start 11/13/16 at 23:30 Glucose (Glutose) 15 gm Q15M PRN BUCCAL DECREASED GLUCOSE; Start 11/13/16 at 23 :30 Docusate Sodium (Colace) 100 mg TID PRN PO CONSTIPATION Last administered on 08:27; Admin Dose 100 MG; Start 11/13/16 at 23:45 Aspirin (Halfprin) 81 mg DAILY PO Last administered on 11/27/16 08:33; Admin Dose 81 MG; Start 11/14/16 at 09:00 Atorvastatin Calcium (Lipitor) 20 mg DAILY@21 PO Last administered on 20:53; Admin Dose 20 MG; Start 11/14/16 at 21:00 Bisacodyl (Dulcolax) 10 mg BID PRN PO CONSTIPATION Last administered on 08:27; Admin Dose 10 MG; Start 11/13/16 at 23:45 Docusate Sodium (Colace) 100 mg BID PO Last administered on 11/27/16 08:33; Admin Dose 100 MG; Start 11/15/16 at 21:00 Senna (Senokot) 1 tab QHS PO Last administered on 11/25/16 20:35; Admin Dose 1 TAB; Start 11/15/16 at 21:00 Acetaminophen (Tylenol Tab) 650 mg Q4H PRN PO PAIN; Start 11/15/16 at 09:30 Bisacodyl (Dulcolax Supp) 10 mg DAILY PRN [place] CONSTIPATION; Start 11/15/16 at 09: 30 Magnesium Hydroxide (Milk Of Mag) 30 ml BID PRN PO CONSTIPATION; Start 11/15/16 at 09:30 Lactulose (Enulose) 20 gm DAILY PRN PO CONSTIPATION; Start 11/15/16 at 09:11 Acetaminophen/ Hydrocodone Bitart ([place] (5/325)) 2 tab Q4H PRN PO PAIN LEVEL 6 -10 Last administered on 11/27/16 06:18; Admin Dose 2 TAB; Start 11/16/16 at 16: 00 Ondansetron HCl (Zofran Inj) 4 mg Q6H PRN IV NAUSEA AND/OR VOMITING Last administered on 11/17/16 10:16; Admin Dose 4 MG; Start 11/17/16 at 10:00 Insulin Glargine (Lantus) 5 unit BID@08,20 SC Last administered on 11/27/16 08 :33; Admin Dose 5 UNIT; Start 11/20/16 at 20:00 BLAS SOLANO Nov 27, 2016 11:47
--- NOTE | 2016-11-27 12:52 | CONS ---
Date/Time of Note Date/Time of Note DATE: 11/27/16 TIME: 12:51 Consult Date/Type/Reason Admit Date/Time Nov 13, 2016 at 21:52 Type of Consultation: neuro Subjective Patient remains motivated Objective Lungs clear anteriorly Vital Signs Date Time Temp Pulse Resp B/P Pulse Ox O2 Delivery O2 Flow Rate FiO2 11/27/16 07:47 98.4 73 18 100/67 99 Intake and Output 11/26/16 11/26/16 11/27/16 15:00 23:00 07:00 Intake Total 940 ml 850 ml Output Total 1060 ml 800 ml Balance -120 ml 50 ml Exam Minimal to moderate assist ambulation Results/Medications Result Diagram: 11/27/16 0623 11/27/16 0623 Results 24 hrs Laboratory Tests Test 11/26/16 17:00 11/26/16 20:48 11/26/16 21:18 11/26/16 21:34 Bedside Glucose 97 68 L 125 105 Test 11/27/16 06:23 11/27/16 07:48 11/27/16 12:01 White Blood Count 8.6 Red Blood Count 4.56 L Hemoglobin 14.0 Hematocrit 42.6 Mean Corpuscular Volume 93.4 Mean Corpuscular Hemoglobin 30.7 Mean Corpuscular Hemoglobin Concent 32.9 Red Cell Distribution Width 12.8 Platelet Count 330 Mean Platelet Volume 8.9 Neutrophils % 58.6 Lymphocytes % 21.3 Monocytes % 8.6 Eosinophils % 9.2 H Basophils % 1.9 Nucleated Red Blood Cells % 0.0 Neutrophils # 5.0 Lymphocytes # 1.8 Monocytes # 0.7 Eosinophils # 0.8 H Basophils # 0.2 H Nucleated Red Blood Cells # 0.0 Sodium Level 132 L Potassium Level 3.9 Chloride Level 98 Carbon Dioxide Level 28 Anion Gap 10 Blood Urea Nitrogen 25 H Creatinine 0.61 Glucose Level 107 Calcium Level 9.3 Total Bilirubin 0.2 Direct Bilirubin 0.00 Indirect Bilirubin 0.2 Aspartate Amino Transf (AST/SGOT) 40 Alanine Aminotransferase (ALT/SGPT) 58 Alkaline Phosphatase 47 Total Protein 7.2 Albumin 4.4 Globulin 2.80 Albumin/Globulin Ratio 1.57 Bedside Glucose 128 99 Medications Current Medications Pantoprazole (Protonix Tab) 40 mg DAILY@06 PO Last administered on 11/27/16t 06 :14; Admin Dose 40 MG; Start 11/14/16 at 06:00 Diagnostic Test (Pha) (Accu-Chek) 1 ea 02 XX Last administered on 11/14/16 02: 38; Admin Dose 1 EA; Start 11/14/16 at 02:00 Lisinopril (Zestril) 10 mg DAILY PO Last administered on 11/27/16 08:34; Admin Dose 10 MG; Start 11/14/16 at 09:00 Miscellaneous Information 1 ea NOTE XX ; Start 11/13/16 at 23:30 Glucose (Glutose) 15 gm Q15M PRN PO DECREASED GLUCOSE; Start 11/13/16 at 23:30 Glucose (Glutose) 22.5 gm Q15M PRN PO DECREASED GLUCOSE; Start 11/13/16 at 23: 30 Glucagon (Glucagen) 1 mg Q15M PRN IM DECREASED GLUCOSE; Start 11/13/16 at 23:30 Glucose (Glutose) 15 gm Q15M PRN BUCCAL DECREASED GLUCOSE; Start 11/13/16 at 23 :30 Docusate Sodium (Colace) 100 mg TID PRN PO CONSTIPATION Last administered on 08:27; Admin Dose 100 MG; Start 11/13/16 at 23:45 Aspirin (Halfprin) 81 mg DAILY PO Last administered on 11/27/16 08:33; Admin Dose 81 MG; Start 11/14/16 at 09:00 Atorvastatin Calcium (Lipitor) 20 mg DAILY@21 PO Last administered on 20:53; Admin Dose 20 MG; Start 11/14/16 at 21:00 Bisacodyl (Dulcolax) 10 mg BID PRN PO CONSTIPATION Last administered on 08:27; Admin Dose 10 MG; Start 11/13/16 at 23:45 Docusate Sodium (Colace) 100 mg BID PO Last administered on 11/27/16 08:33; Admin Dose 100 MG; Start 11/15/16 at 21:00 Senna (Senokot) 1 tab QHS PO Last administered on 11/25/16 20:35; Admin Dose 1 TAB; Start 11/15/16 at 21:00 Acetaminophen (Tylenol Tab) 650 mg Q4H PRN PO PAIN; Start 11/15/16 at 09:30 Bisacodyl (Dulcolax Supp) 10 mg DAILY PRN [place] CONSTIPATION; Start 11/15/16 at 09: 30 Magnesium Hydroxide (Milk Of Mag) 30 ml BID PRN PO CONSTIPATION; Start 11/15/16 at 09:30 Lactulose (Enulose) 20 gm DAILY PRN PO CONSTIPATION; Start 11/15/16 at 09:11 Acetaminophen/ Hydrocodone Bitart ([place] (5/325)) 2 tab Q4H PRN PO PAIN LEVEL 6 -10 Last administered on 11/27/16 06:18; Admin Dose 2 TAB; Start 11/16/16 at 16: 00 Ondansetron HCl (Zofran Inj) 4 mg Q6H PRN IV NAUSEA AND/OR VOMITING Last administered on 11/17/16 10:16; Admin Dose 4 MG; Start 11/17/16 at 10:00 Insulin Glargine (Lantus) 5 unit BID@08,20 SC Last administered on 11/27/16 08 :33; Admin Dose 5 UNIT; Start 11/20/16 at 20:00 Assessment/Plan Additional Assessment/Plan Rehabilitation -Guillian [place] Syndrome Continue interdisciplinary treatment plan Diabetes Mellitus-under good control Hypertension. FERNANDA MARIE MD Nov 27, 2016 12:51
[2016-11-27 20:08] VITALS: BP 101/55; RESP 18
[2016-11-27] MEDS: SENNA TAB PO SCH (20:20)
[2016-11-27] MEDS: ATORVASTATIN 20 MG TAB PO SCH (20:20)
[2016-11-28] MEDS: ACCUCHECK AT 2AM (Patients on SS coverage) XX SCH (01:59)
[2016-11-28] MEDS: PANTOPRAZOLE (EC) 40 MG TAB PO SCH (07:09)
[2016-11-28 07:30] VITALS: BP 99/58; RESP 18
[2016-11-28] MEDS: Insulin NOVOLOG SS MODERATE Algorithm (SS with meals and bedtime) SC SCH ×4 (07:35→21:00)
[2016-11-28] MEDS: JENTADUETO PO SCH ×2 (07:35→17:39)
[2016-11-28] MEDS: HYDROCODONE/APAP (5/325) TAB PO PRN ×2 (08:55→20:35)
[2016-11-28] MEDS: DOCUSATE SODIUM 100 MG CAP PO SCH ×2 (08:56→20:36)
[2016-11-28] MEDS: ASPIRIN (EC) 81 MG TAB PO SCH (08:56)
[2016-11-28] MEDS: LISINOPRIL 10 MG TAB PO SCH (08:57)
[2016-11-28] MEDS: INSULIN GLARGINE [LANtus] 3 ML PEN SC SCH ×2 (09:00→20:41)
--- NOTE | 2016-11-28 13:04 | PN ---
Date/Time of Note Date/Time of Note DATE: 11/28/16 TIME: 13:00 Assessment/Plan VTE Prophylaxis VTE Prophylaxis Intervention: ambulation, other Lines/Catheters IV Catheter Type (from Nrs): Saline Lock Urinary Cath still in place: No Assessment/Plan Assessment/Plan 1. Guillian [place] Syndrome with weakness, impaired mobility/gait/ADLs. Continue PT/OT, avoid overexertion. Min assist for transfers, improving. 2. Diabetes Mellitus. Blood sugars controlled. Continue medical management per internal medicine. 3. Hypertension. Continue to monitor BP. Continue medical management per internal medicine. Subjective 24 Hr Interval Summary Free Text/Dictation Rehab progress note Subjective: Reports some muscle soreness after working with therapies yesterday , pain alleviated with norco. ROS: Denies chest pain, no shortness of breath, no abdominal pain, no new paresthesias or new weakness. Denies constipation. Exam/Review of Systems Vital Signs Vitals Vital Signs Date Time Temp Pulse Resp B/P Pulse Ox O2 Delivery O2 Flow Rate FiO2 11/28/16 07:30 98.8 85 18 99/58 97 Intake and Output 11/27/16 11/27/16 11/28/16 14:59 22:59 06:59 Intake Total 740 ml Output Total 300 ml Balance 440 ml Exam General: Awake, alert, no acute distress CV: Regular rate, s1s2 Lungs clear to auscultation, no wheezing Abdomen soft, nontender Extremities without cyanosis, L AFO in place Neuro/MSK: Decreased AROM L>R shoulder. No new sensory changes. Follows simple commands. Results Result Diagram: 11/27/1662211/27/16622 Results 24 hrs Laboratory Tests Test 11/27/16 17:10 11/27/16 20:17 11/28/16 07:42 11/28/16 12:15 Bedside Glucose 108 79 135 106 Medications Medications Current Medications Pantoprazole (Protonix Tab) 40 mg DAILY@06 PO Last administered on 11/28/16 07 :09; Admin Dose 40 MG; Start 11/14/16 at 06:00 Diagnostic Test (Pha) (Accu-Chek) 1 ea 02 XX Last administered on 11/14/16 02: 38; Admin Dose 1 EA; Start 11/14/16 at 02:00 Lisinopril (Zestril) 10 mg DAILY PO Last administered on 11/27/16 08:34; Admin Dose 10 MG; Start 11/14/16 at 09:00 Miscellaneous Information 1 ea NOTE XX ; Start 11/13/16 at 23:30 Glucose (Glutose) 15 gm Q15M PRN PO DECREASED GLUCOSE; Start 11/13/16 at 23:30 Glucose (Glutose) 22.5 gm Q15M PRN PO DECREASED GLUCOSE; Start 11/13/16 at 23: 30 Glucagon (Glucagen) 1 mg Q15M PRN IM DECREASED GLUCOSE; Start 11/13/16 at 23:30 Glucose (Glutose) 15 gm Q15M PRN BUCCAL DECREASED GLUCOSE; Start 11/13/16 at 23 :30 Docusate Sodium (Colace) 100 mg TID PRN PO CONSTIPATION Last administered on 08:27; Admin Dose 100 MG; Start 11/13/16 at 23:45 Aspirin (Halfprin) 81 mg DAILY PO Last administered on 11/28/16 08:56; Admin Dose 81 MG; Start 11/14/16 at 09:00 Atorvastatin Calcium (Lipitor) 20 mg DAILY@21 PO Last administered on 20:20; Admin Dose 20 MG; Start 11/14/16 at 21:00 Bisacodyl (Dulcolax) 10 mg BID PRN PO CONSTIPATION Last administered on 08:27; Admin Dose 10 MG; Start 11/13/16 at 23:45 Docusate Sodium (Colace) 100 mg BID PO Last administered on 11/28/16 08:56; Admin Dose 100 MG; Start 11/15/16 at 21:00 Senna (Senokot) 1 tab QHS PO Last administered on 11/27/16 20:20; Admin Dose 1 TAB; Start 11/15/16 at 21:00 Acetaminophen (Tylenol Tab) 650 mg Q4H PRN PO PAIN; Start 11/15/16 at 09:30 Bisacodyl (Dulcolax Supp) 10 mg DAILY PRN [place] CONSTIPATION; Start 11/15/16 at 09: 30 Magnesium Hydroxide (Milk Of Mag) 30 ml BID PRN PO CONSTIPATION; Start 11/15/16 at 09:30 Lactulose (Enulose) 20 gm DAILY PRN PO CONSTIPATION; Start 11/15/16 at 09:11 Acetaminophen/ Hydrocodone Bitart ([place] (5/325)) 2 tab Q4H PRN PO PAIN LEVEL 6 -10 Last administered on 11/28/16 08:55; Admin Dose 2 TAB; Start 11/16/16 at 16: 00 Ondansetron HCl (Zofran Inj) 4 mg Q6H PRN IV NAUSEA AND/OR VOMITING Last administered on 11/17/16 10:16; Admin Dose 4 MG; Start 11/17/16 at 10:00 Insulin Glargine (Lantus) 5 unit BID@08,20 SC Last administered on 11/28/16 09 :00; Admin Dose 5 UNIT; Start 11/20/16 at 20:00 ANNE MARIE GILLETTE Nov 28, 2016 13:03
--- NOTE | 2016-11-28 13:55 | PN ---
Date/Time of Note Date/Time of Note DATE: 11/28/16 TIME: 13:55 Assessment/Plan VTE Prophylaxis VTE Prophylaxis Intervention: ambulation Lines/Catheters IV [facility] Saline Lock Urinary Cath still in place: No Assessment/Plan Chief Complaint/Hosp Course 1. Diabetes Mellitus, controlled 2. 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 Continue rehab Subjective 24 Hr Interval Summary Constitutional: improved, no complaints Exam/Review of Systems Vital Signs Vitals Vital Signs Date Time Temp Pulse Resp B/P Pulse Ox O2 Delivery O2 Flow Rate FiO2 11/28/16 07:30 98.8 85 18 99/58 97 Intake and Output 11/27/16 11/27/16 11/28/16 15:00 23:00 07:00 Intake Total 740 ml Output Total 300 ml Balance 440 ml Exam pt is in shower Psych: nl mood/affect, no complaints Eyes: nl conjunctiva ENMT: nl external ears & nose Results Result Diagram: 11/27/1662211/27/16 0623 Results 24 hrs Laboratory Tests Test 11/27/16 17:10 11/27/16 20:17 11/28/16 07:42 11/28/16 12:15 Bedside Glucose 108 79 135 106 Medications Medications Current Medications Pantoprazole (Protonix Tab) 40 mg DAILY@06 PO Last administered on 11/28/16 07 :09; Admin Dose 40 MG; Start 11/14/16 at 06:00 Diagnostic Test (Pha) (Accu-Chek) 1 ea 02 XX Last administered on 11/14/16 02: 38; Admin Dose 1 EA; Start 11/14/16 at 02:00 Lisinopril (Zestril) 10 mg DAILY PO Last administered on 11/27/16 08:34; Admin Dose 10 MG; Start 11/14/16 at 09:00 Miscellaneous Information 1 ea NOTE XX ; Start 11/13/16 at 23:30 Glucose (Glutose) 15 gm Q15M PRN PO DECREASED GLUCOSE; Start 11/13/16 at 23:30 Glucose (Glutose) 22.5 gm Q15M PRN PO DECREASED GLUCOSE; Start 11/13/16 at 23: 30 Glucagon (Glucagen) 1 mg Q15M PRN IM DECREASED GLUCOSE; Start 11/13/16 at 23:30 Glucose (Glutose) 15 gm Q15M PRN BUCCAL DECREASED GLUCOSE; Start 11/13/16 at 23 :30 Docusate Sodium (Colace) 100 mg TID PRN PO CONSTIPATION Last administered on 08:27; Admin Dose 100 MG; Start 11/13/16 at 23:45 Aspirin (Halfprin) 81 mg DAILY PO Last administered on 11/28/16 08:56; Admin Dose 81 MG; Start 11/14/16 at 09:00 Atorvastatin Calcium (Lipitor) 20 mg DAILY@21 PO Last administered on 20:20; Admin Dose 20 MG; Start 11/14/16 at 21:00 Bisacodyl (Dulcolax) 10 mg BID PRN PO CONSTIPATION Last administered on 08:27; Admin Dose 10 MG; Start 11/13/16 at 23:45 Docusate Sodium (Colace) 100 mg BID PO Last administered on 11/28/16 08:56; Admin Dose 100 MG; Start 11/15/16 at 21:00 Senna (Senokot) 1 tab QHS PO Last administered on 11/27/16 20:20; Admin Dose 1 TAB; Start 11/15/16 at 21:00 Acetaminophen (Tylenol Tab) 650 mg Q4H PRN PO PAIN; Start 11/15/16 at 09:30 Bisacodyl (Dulcolax Supp) 10 mg DAILY PRN [place] CONSTIPATION; Start 11/15/16 at 09: 30 Magnesium Hydroxide (Milk Of Mag) 30 ml BID PRN PO CONSTIPATION; Start 11/15/16 at 09:30 Lactulose (Enulose) 20 gm DAILY PRN PO CONSTIPATION; Start 11/15/16 at 09:11 Acetaminophen/ Hydrocodone Bitart ([place] (5/325)) 2 tab Q4H PRN PO PAIN LEVEL 6 -10 Last administered on 11/28/16 08:55; Admin Dose 2 TAB; Start 11/16/16 at 16: 00 Ondansetron HCl (Zofran Inj) 4 mg Q6H PRN IV NAUSEA AND/OR VOMITING Last administered on 11/17/16 10:16; Admin Dose 4 MG; Start 11/17/16 at 10:00 Insulin Glargine (Lantus) 5 unit BID@08,20 SC Last administered on 11/28/16t 09 :00; Admin Dose 5 UNIT; Start 11/20/16 at 20:00 BLAS SOLANO Nov 28, 2016 13:55
[2016-11-28 19:41] VITALS: BP 111/67; RESP 18
[2016-11-28] MEDS: SENNA TAB PO SCH (20:36)
[2016-11-28] MEDS: ATORVASTATIN 20 MG TAB PO SCH (21:00)
[2016-11-29] MEDS: ACCUCHECK AT 2AM (Patients on SS coverage) XX SCH (02:00)
[2016-11-29] MEDS: PANTOPRAZOLE (EC) 40 MG TAB PO SCH (06:07)
[2016-11-29] MEDS: Insulin NOVOLOG SS MODERATE Algorithm (SS with meals and bedtime) SC SCH ×4 (07:35→20:36)
[2016-11-29] MEDS: INSULIN GLARGINE [LANtus] 3 ML PEN SC SCH ×2 (07:59→20:41)
[2016-11-29 08:00] VITALS: BP 104/52; PULSE 67; RESP 18
[2016-11-29] MEDS: ASPIRIN (EC) 81 MG TAB PO SCH (08:07)
[2016-11-29] MEDS: DOCUSATE SODIUM 100 MG CAP PO SCH ×2 (08:07→20:36)
[2016-11-29] MEDS: JENTADUETO PO SCH ×2 (08:07→17:19)
[2016-11-29] MEDS: LISINOPRIL 10 MG TAB PO SCH (08:07)
[2016-11-29] MEDS: HYDROCODONE/APAP (5/325) TAB PO PRN ×2 (08:12→20:35)
--- NOTE | 2016-11-29 18:34 | PN ---
Date/Time of Note Date/Time of Note DATE: 11/29/16 TIME: 18:33 Assessment/Plan VTE Prophylaxis VTE Prophylaxis Intervention: other Lines/Catheters IV [facility] Saline Lock Urinary Cath still in place: No Assessment/Plan Chief Complaint/Hosp Course Patient is doing fine GB SYNDROME UTI treated S/P IVIG Patient is getting physical therapy daily PT OT stable Problems: Subjective 24 Hr Interval Summary Subjective hx not possible: other (DOING BETTER) Exam/Review of Systems Vital Signs Vitals Vital Signs Date Time Temp Pulse Resp B/P Pulse Ox O2 Delivery O2 Flow Rate FiO2 11/29/16 08:00 98.2 67 18 104/52 99 Room Air Intake and Output 11/28/16 11/28/16 11/29/16 15:00 23:00 07:00 Intake Total 420 ml 350 ml Output Total 500 ml 1250 ml Balance -80 ml -900 ml Exam Respiratory: clear to auscultation Cardiovascular: regular rate and rhythm Results Result Diagram: 11/27/1662211/27/16622 Results 24 hrs Laboratory Tests Test 11/28/16 20:32 11/29/16 07:41 11/29/16 11:39 11/29/16 17:01 Bedside Glucose 89 99 75 165 Medications Medications Current Medications Pantoprazole (Protonix Tab) 40 mg DAILY@06 PO Last administered on 11/29/16 06 :07; Admin Dose 40 MG; Start 11/14/16 at 06:00 Diagnostic Test (Pha) (Accu-Chek) 1 ea 02 XX Last administered on 11/14/16 02: 38; Admin Dose 1 EA; Start 11/14/16 at 02:00 Lisinopril (Zestril) 10 mg DAILY PO Last administered on 11/27/16 08:34; Admin Dose 10 MG; Start 11/14/16 at 09:00 Miscellaneous Information 1 ea NOTE XX ; Start 11/13/16 at 23:30 Glucose (Glutose) 15 gm Q15M PRN PO DECREASED GLUCOSE; Start 11/13/16 at 23:30 Glucose (Glutose) 22.5 gm Q15M PRN PO DECREASED GLUCOSE; Start 11/13/16 at 23: 30 Glucagon (Glucagen) 1 mg Q15M PRN IM DECREASED GLUCOSE; Start 11/13/16 at 23:30 Glucose (Glutose) 15 gm Q15M PRN BUCCAL DECREASED GLUCOSE; Start 11/13/16 at 23 :30 Docusate Sodium (Colace) 100 mg TID PRN PO CONSTIPATION Last administered on 08:27; Admin Dose 100 MG; Start 11/13/16 at 23:45 Aspirin (Halfprin) 81 mg DAILY PO Last administered on 11/29/16 08:07; Admin Dose 81 MG; Start 11/14/16 at 09:00 Atorvastatin Calcium (Lipitor) 20 mg DAILY@21 PO Last administered on 21:00; Admin Dose 20 MG; Start 11/14/16 at 21:00 Bisacodyl (Dulcolax) 10 mg BID PRN PO CONSTIPATION Last administered on 08:27; Admin Dose 10 MG; Start 11/13/16 at 23:45 Docusate Sodium (Colace) 100 mg BID PO Last administered on 11/29/16 08:07; Admin Dose 100 MG; Start 11/15/16 at 21:00 Senna (Senokot) 1 tab QHS PO Last administered on 11/28/16 20:36; Admin Dose 1 TAB; Start 11/15/16 at 21:00 Acetaminophen (Tylenol Tab) 650 mg Q4H PRN PO PAIN; Start 11/15/16 at 09:30 Bisacodyl (Dulcolax Supp) 10 mg DAILY PRN [place] CONSTIPATION; Start 11/15/16 at 09: 30 Magnesium Hydroxide (Milk Of Mag) 30 ml BID PRN PO CONSTIPATION; Start 11/15/16 at 09:30 Lactulose (Enulose) 20 gm DAILY PRN PO CONSTIPATION; Start 11/15/16 at 09:11 Acetaminophen/ Hydrocodone Bitart ([place] (5/325)) 2 tab Q4H PRN PO PAIN LEVEL 6 -10 Last administered on 11/29/16 08:12; Admin Dose 2 TAB; Start 11/16/16 at 16: 00 Ondansetron HCl (Zofran Inj) 4 mg Q6H PRN IV NAUSEA AND/OR VOMITING Last administered on 11/17/16 10:16; Admin Dose 4 MG; Start 11/17/16 at 10:00 Insulin Glargine (Lantus) 5 unit BID@08,20 SC Last administered on 11/29/16t 07 :59; Admin Dose 5 UNIT; Start 11/20/16 at 20:00 NYASIA JOSEPH MD Nov 29, 2016 18:33
[2016-11-29 20:00] VITALS: BP 143/75; RESP 18
[2016-11-29] MEDS: ATORVASTATIN 20 MG TAB PO SCH (20:36)
[2016-11-29] MEDS: SENNA TAB PO SCH (20:36)
[2016-11-30] MEDS: ACCUCHECK AT 2AM (Patients on SS coverage) XX SCH (02:00)
[2016-11-30] MEDS: PANTOPRAZOLE (EC) 40 MG TAB PO SCH (06:29)
[2016-11-30] MEDS: HYDROCODONE/APAP (5/325) TAB PO PRN ×2 (06:30→19:21)
[2016-11-30 07:30] VITALS: BP 111/79; RESP 18
[2016-11-30] MEDS: Insulin NOVOLOG SS MODERATE Algorithm (SS with meals and bedtime) SC SCH ×4 (07:35→21:00)
[2016-11-30] MEDS: JENTADUETO PO SCH ×2 (08:39→17:47)
[2016-11-30] MEDS: INSULIN GLARGINE [LANtus] 3 ML PEN SC SCH ×2 (08:40→20:32)
[2016-11-30] MEDS: ASPIRIN (EC) 81 MG TAB PO SCH (08:41)
[2016-11-30] MEDS: DOCUSATE SODIUM 100 MG CAP PO SCH ×2 (08:41→20:26)
[2016-11-30] MEDS: LISINOPRIL 10 MG TAB PO SCH (08:42)
--- NOTE | 2016-11-30 13:07 | CONS ---
Date/Time of Note Date/Time of Note DATE: 11/30/16 TIME: 13:06 Consult Date/Type/Reason Admit Date/Time Nov 13, 2016 at 21:52 Type of Consultation: neuro Objective Vital Signs Date Time Temp Pulse Resp B/P Pulse Ox O2 Delivery O2 Flow Rate FiO2 11/29/16 20:00 98.3 82 18 143/75 97 11/29/16 08:00 Room Air Intake and Output 11/29/16 11/29/16 11/30/16 15:00 23:00 07:00 Intake Total 720 ml 300 ml Output Total 820 ml 1550 ml Balance -100 ml -1250 ml INTERDISCIPLINARY TEAM CONFERENCE BOWEL- Cont BLADDER-Cont SKIN- intact OT- DRESSING-standby /minimal BATHING-standby /minimal [id number] PT- BED MOBILITY minimal TRANSFERS minimal AMBULATION minimal 75 A/P- Interdisciplinary team conference held today. Please see interdisciplinary sheet. Working toward d.c. on 12/03 with post discharge follow up of physical therapy, occupational therapy. Functional Impact of Comorbidity: Patient's weakness affects mobility, specifically stair mobility. Overall he has made steady gains. Results/Medications Result Diagram: 11/27/16 0623 11/27/16 0623 Results 24 hrs Laboratory Tests Test 11/29/16 17:01 11/29/16 20:30 11/30/16 07:52 11/30/16 08:38 Bedside Glucose 165 105 108 146 Test 11/30/16 12:13 Bedside Glucose 128 Medications Current Medications Pantoprazole (Protonix Tab) 40 mg DAILY@06 PO Last administered on 11/30/16 06 :29; Admin Dose 40 MG; Start 11/14/16 at 06:00 Diagnostic Test (Pha) (Accu-Chek) 1 ea 02 XX Last administered on 11/14/16 02: 38; Admin Dose 1 EA; Start 11/14/16 at 02:00 Lisinopril (Zestril) 10 mg DAILY PO Last administered on 11/30/16 08:42; Admin Dose 10 MG; Start 11/14/16 at 09:00 Miscellaneous Information 1 ea NOTE XX ; Start 11/13/16 at 23:30 Glucose (Glutose) 15 gm Q15M PRN PO DECREASED GLUCOSE; Start 11/13/16 at 23:30 Glucose (Glutose) 22.5 gm Q15M PRN PO DECREASED GLUCOSE; Start 11/13/16 at 23: 30 Glucagon (Glucagen) 1 mg Q15M PRN IM DECREASED GLUCOSE; Start 11/13/16 at 23:30 Glucose (Glutose) 15 gm Q15M PRN BUCCAL DECREASED GLUCOSE; Start 11/13/16 at 23 :30 Docusate Sodium (Colace) 100 mg TID PRN PO CONSTIPATION Last administered on 08:27; Admin Dose 100 MG; Start 11/13/16 at 23:45 Aspirin (Halfprin) 81 mg DAILY PO Last administered on 11/30/16 08:41; Admin Dose 81 MG; Start 11/14/16 at 09:00 Atorvastatin Calcium (Lipitor) 20 mg DAILY@21 PO Last administered on 20:36; Admin Dose 20 MG; Start 11/14/16 at 21:00 Bisacodyl (Dulcolax) 10 mg BID PRN PO CONSTIPATION Last administered on 08:27; Admin Dose 10 MG; Start 11/13/16 at 23:45 Docusate Sodium (Colace) 100 mg BID PO Last administered on 11/30/16 08:41; Admin Dose 100 MG; Start 11/15/16 at 21:00 Senna (Senokot) 1 tab QHS PO Last administered on 11/29/16 20:36; Admin Dose 1 TAB; Start 11/15/16 at 21:00 Acetaminophen (Tylenol Tab) 650 mg Q4H PRN PO PAIN; Start 11/15/16 at 09:30 Bisacodyl (Dulcolax Supp) 10 mg DAILY PRN [place] CONSTIPATION; Start 11/15/16 at 09: 30 Magnesium Hydroxide (Milk Of Mag) 30 ml BID PRN PO CONSTIPATION; Start 11/15/16 at 09:30 Lactulose (Enulose) 20 gm DAILY PRN PO CONSTIPATION; Start 11/15/16 at 09:11 Acetaminophen/ Hydrocodone Bitart ([place] (5/325)) 2 tab Q4H PRN PO PAIN LEVEL 6 -10 Last administered on 11/30/16 06:30; Admin Dose 2 TAB; Start 11/16/16 at 16: 00 Ondansetron HCl (Zofran Inj) 4 mg Q6H PRN IV NAUSEA AND/OR VOMITING Last administered on 11/17/16 10:16; Admin Dose 4 MG; Start 11/17/16 at 10:00 Insulin Glargine (Lantus) 5 unit BID@08,20 SC Last administered on 11/30/16 08 :40; Admin Dose 5 UNIT; Start 11/20/16 at 20:00 FERNANDA MARIE MD Nov 30, 2016 13:07 FERNANDA MARIE MD Nov 30, 2016 13:07
--- NOTE | 2016-11-30 18:36 | RADRPT ---
PROCEDURE: US left lower extremity veins. CLINICAL INDICATION: Left leg pain and swelling. TECHNIQUE: Multiple longitudinal and transverse images of the left lower extremity veins were obta ined with flores scale and color Doppler imaging. The common femoral vein, femoral vein, and popliteal vein were evaluated. 2D grayscale measurements with compression sonography, pulsed Doppler, color D oppler, and pulsed Doppler with augmentation. COMPARISON: No prior studies are available for comparison. FINDINGS: The left common femoral, femoral and popliteal veins are normally compressible throughout. Color fl ow demonstrates normal filling of the vessels. Normal waveforms are visualized and there is normal response to augmentation. IMPRESSION: 1. No evidence of deep vein thrombosis involving the left lower extremity. RPTAT: QQ .Eliud Ontiveros MD, MD Date Time Electronically viewed and signed by .Eliud Ontiveros MD, on 11/30/2016 15:47 .R/
[2016-11-30 20:00] VITALS: BP 108/62; RESP 18
[2016-11-30] MEDS: ATORVASTATIN 20 MG TAB PO SCH (20:26)
[2016-11-30] MEDS: SENNA TAB PO SCH (20:26)
--- NOTE | 2016-11-30 21:25 | PN ---
Date/Time of Note Date/Time of Note DATE: 11/30/16 TIME: 21:24 Assessment/Plan VTE Prophylaxis VTE Prophylaxis Intervention: other Lines/Catheters [facility] Saline Lock Urinary Cath still in place: No Assessment/Plan Chief Complaint/Hosp Course Patient is doing fine GB SYNDROME UTI treated S/P IVIG Patient is getting physical therapy daily PT OT stable US NEG Problems: Subjective 24 Hr Interval Summary Subjective hx not possible: other (LEG PAIN NO DVT) Exam/Review of Systems Vital Signs Vitals Vital Signs Date Time Temp Pulse Resp B/P Pulse Ox O2 Delivery O2 Flow Rate FiO2 11/30/16 07:30 98.4 73 18 111/79 99 11/29/16 08:00 Room Air Intake and Output 11/29/16 11/29/16 11/30/16 15:00 23:00 07:00 Intake Total 720 ml 300 ml Output Total 820 ml 1550 ml Balance -100 ml -1250 ml Exam Respiratory: clear to auscultation Cardiovascular: regular rate and rhythm Gastrointestinal: soft Musculoskeletal: nl extremities to inspection Extremities: No calf tenderness Neurological: other (WEAKNESS BETTER) Results Result Diagram: 11/27/1662211/27/1623 Results 24 hrs Laboratory Tests Test 11/30/16 07:52 11/30/16 08:38 11/30/16 12:13 11/30/16 17:28 Bedside Glucose 108 146 128 108 Test 11/30/16 20:25 Bedside Glucose 105 Medications Medications Current Medications Pantoprazole (Protonix Tab) 40 mg DAILY@06 PO Last administered on 11/30/16 06 :29; Admin Dose 40 MG; Start 11/14/16 at 06:00 Diagnostic Test (Pha) (Accu-Chek) 1 ea 02 XX Last administered on 11/14/16 02: 38; Admin Dose 1 EA; Start 11/14/16 at 02:00 Lisinopril (Zestril) 10 mg DAILY PO Last administered on 11/30/16 08:42; Admin Dose 10 MG; Start 11/14/16 at 09:00 Miscellaneous Information 1 ea NOTE XX ; Start 11/13/16 at 23:30 Glucose (Glutose) 15 gm Q15M PRN PO DECREASED GLUCOSE; Start 11/13/16 at 23:30 Glucose (Glutose) 22.5 gm Q15M PRN PO DECREASED GLUCOSE; Start 11/13/16 at 23: 30 Glucagon (Glucagen) 1 mg Q15M PRN IM DECREASED GLUCOSE; Start 11/13/16 at 23:30 Glucose (Glutose) 15 gm Q15M PRN BUCCAL DECREASED GLUCOSE; Start 11/13/16 at 23 :30 Docusate Sodium (Colace) 100 mg TID PRN PO CONSTIPATION Last administered on 08:27; Admin Dose 100 MG; Start 11/13/16 at 23:45 Aspirin (Halfprin) 81 mg DAILY PO Last administered on 11/30/16 08:41; Admin Dose 81 MG; Start 11/14/16 at 09:00 Atorvastatin Calcium (Lipitor) 20 mg DAILY@21 PO Last administered on 20:26; Admin Dose 20 MG; Start 11/14/16 at 21:00 Bisacodyl (Dulcolax) 10 mg BID PRN PO CONSTIPATION Last administered on 08:27; Admin Dose 10 MG; Start 11/13/16 at 23:45 Docusate Sodium (Colace) 100 mg BID PO Last administered on 11/30/16 20:26; Admin Dose 100 MG; Start 11/15/16 at 21:00 Senna (Senokot) 1 tab QHS PO Last administered on 11/30/16 20:26; Admin Dose 1 TAB; Start 11/15/16 at 21:00 Acetaminophen (Tylenol Tab) 650 mg Q4H PRN PO PAIN; Start 11/15/16 at 09:30 Bisacodyl (Dulcolax Supp) 10 mg DAILY PRN [place] CONSTIPATION; Start 11/15/16 at 09: 30 Magnesium Hydroxide (Milk Of Mag) 30 ml BID PRN PO CONSTIPATION; Start 11/15/16 at 09:30 Lactulose (Enulose) 20 gm DAILY PRN PO CONSTIPATION; Start 11/15/16 at 09:11 Acetaminophen/ Hydrocodone Bitart ([place] (5/325)) 2 tab Q4H PRN PO PAIN LEVEL 6 -10 Last administered on 11/30/16 19:21; Admin Dose 2 TAB; Start 11/16/16 at 16: 00 Ondansetron HCl (Zofran Inj) 4 mg Q6H PRN IV NAUSEA AND/OR VOMITING Last administered on 11/17/16 10:16; Admin Dose 4 MG; Start 11/17/16 at 10:00 Insulin Glargine (Lantus) 5 unit BID@08,20 SC Last administered on 11/30/16 20 :32; Admin Dose 5 UNIT; Start 11/20/16 at 20:00 NYASIA JOSEPH MD Nov 30, 2016 21:25
[2016-12-01] MEDS: ACCUCHECK AT 2AM (Patients on SS coverage) XX SCH (02:00)
[2016-12-01] MEDS: PANTOPRAZOLE (EC) 40 MG TAB PO SCH (05:54)
[2016-12-01] MEDS: HYDROCODONE/APAP (5/325) TAB PO PRN ×3 (07:04→20:31)
[2016-12-01 08:00] VITALS: BP 107/57; RESP 18
[2016-12-01] MEDS: INSULIN GLARGINE [LANtus] 3 ML PEN SC SCH ×2 (08:00→20:41)
[2016-12-01] MEDS: JENTADUETO PO SCH ×2 (08:38→17:45)
[2016-12-01] MEDS: DOCUSATE SODIUM 100 MG CAP PO SCH ×2 (08:39→20:31)
[2016-12-01] MEDS: LISINOPRIL 10 MG TAB PO SCH (08:39)
[2016-12-01] MEDS: Insulin NOVOLOG SS MODERATE Algorithm (SS with meals and bedtime) SC SCH ×4 (08:39→20:42)
[2016-12-01] MEDS: ASPIRIN (EC) 81 MG TAB PO SCH (08:44)
--- NOTE | 2016-12-01 12:23 | CONS ---
Date/Time of Note Date/Time of Note DATE: 12/01/16 TIME: 12:21 Consult Date/Type/Reason Admit Date/Time Nov 13, 2016 at 21:52 Type of Consultation: neuro Subjective Motivated in good spirits Objective Lungs clear anteriorly Contact-guard assist ambulation Vital Signs Date Time Temp Pulse Resp B/P Pulse Ox O2 Delivery O2 Flow Rate FiO2 12/01/16 08:00 97.9 67 18 107/57 96 11/29/16 08:00 Room Air Intake and Output 11/30/16 11/30/16 12/01/16 15:00 23:00 07:00 Intake Total 1130 ml 180 ml Output Total 1520 ml 250 ml Balance -390 ml -70 ml Results/Medications Result Diagram: 11/27/1662211/27/16622 Results 24 hrs Laboratory Tests Test 11/30/16 17:28 11/30/16 20:25 12/01/16 07:49 Bedside Glucose 108 105 98 Medications Current Medications Pantoprazole (Protonix Tab) 40 mg DAILY@06 PO Last administered on 12/01/16 05 :54; Admin Dose 40 MG; Start 11/14/16 at 06:00 Diagnostic Test (Pha) (Accu-Chek) 1 ea 02 XX Last administered on 11/14/16 02: 38; Admin Dose 1 EA; Start 11/14/16 at 02:00 Lisinopril (Zestril) 10 mg DAILY PO Last administered on 12/01/16 08:39; Admin Dose 10 MG; Start 11/14/16 at 09:00 Miscellaneous Information 1 ea NOTE XX ; Start 11/13/16 at 23:30 Glucose (Glutose) 15 gm Q15M PRN PO DECREASED GLUCOSE; Start 11/13/16 at 23:30 Glucose (Glutose) 22.5 gm Q15M PRN PO DECREASED GLUCOSE; Start 11/13/16 at 23: 30 Glucagon (Glucagen) 1 mg Q15M PRN IM DECREASED GLUCOSE; Start 11/13/16 at 23:30 Glucose (Glutose) 15 gm Q15M PRN BUCCAL DECREASED GLUCOSE; Start 11/13/16 at 23 :30 Docusate Sodium (Colace) 100 mg TID PRN PO CONSTIPATION Last administered on 08:27; Admin Dose 100 MG; Start 11/13/16 at 23:45 Aspirin (Halfprin) 81 mg DAILY PO Last administered on 12/01/16 08:44; Admin Dose 81 MG; Start 11/14/16 at 09:00 Atorvastatin Calcium (Lipitor) 20 mg DAILY@21 PO Last administered on 20:26; Admin Dose 20 MG; Start 11/14/16 at 21:00 Bisacodyl (Dulcolax) 10 mg BID PRN PO CONSTIPATION Last administered on 08:27; Admin Dose 10 MG; Start 11/13/16 at 23:45 Docusate Sodium (Colace) 100 mg BID PO Last administered on 12/01/16 08:39; Admin Dose 100 MG; Start 11/15/16 at 21:00 Senna (Senokot) 1 tab QHS PO Last administered on 11/30/16 20:26; Admin Dose 1 TAB; Start 11/15/16 at 21:00 Acetaminophen (Tylenol Tab) 650 mg Q4H PRN PO PAIN; Start 11/15/16 at 09:30 Bisacodyl (Dulcolax Supp) 10 mg DAILY PRN [place] CONSTIPATION; Start 11/15/16 at 09: 30 Magnesium Hydroxide (Milk Of Mag) 30 ml BID PRN PO CONSTIPATION; Start 11/15/16 at 09:30 Lactulose (Enulose) 20 gm DAILY PRN PO CONSTIPATION; Start 11/15/16 at 09:11 Acetaminophen/ Hydrocodone Bitart ([place] (5/325)) 2 tab Q4H PRN PO PAIN LEVEL 6 -10 Last administered on 12/01/16 07:04; Admin Dose 2 TAB; Start 11/16/16 at 16: 00 Ondansetron HCl (Zofran Inj) 4 mg Q6H PRN IV NAUSEA AND/OR VOMITING Last administered on 11/17/16 10:16; Admin Dose 4 MG; Start 11/17/16 at 10:00 Insulin Glargine (Lantus) 5 unit BID@08,20 SC Last administered on 11/30/16 20 :32; Admin Dose 5 UNIT; Start 11/20/16 at 20:00 Assessment/Plan Additional Assessment/Plan 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 Working towards discharge home. Stairs are significant barrier, stair training ongoing Diabetes Mellitus-under good control Hypertension. FERNANDA MARIE MD Dec 01, 2016 12:22
[2016-12-01 20:00] VITALS: BP 114/68; RESP 18
[2016-12-01] MEDS: ATORVASTATIN 20 MG TAB PO SCH (20:31)
[2016-12-01] MEDS: SENNA TAB PO SCH (20:31)
--- NOTE | 2016-12-01 23:09 | PN ---
Date/Time of Note Date/Time of Note DATE: 12/01/16 TIME: 23:08 Assessment/Plan VTE Prophylaxis VTE Prophylaxis Intervention: other Lines/Catheters IV [facility] Type [facility]from [facility] Saline Lock Urinary Cath still in place: No Assessment/Plan Chief Complaint/Hosp Course Patient is doing fine GB SYNDROME UTI treated S/P IVIG Patient is getting physical therapy daily PT OT stable US NEG home soon Problems: Subjective 24 Hr Interval Summary Cardiovascular: no complaints Gastrointestinal: no complaints Exam/Review of Systems Vital Signs Vitals Vital Signs Date Time Temp Pulse Resp B/P Pulse Ox O2 Delivery O2 Flow Rate FiO2 12/01/16 20:00 98.4 80 18 114/68 98 11/29/16 08:00 Room Air Intake and Output 11/30/16 11/30/16 12/01/16 15:00 23:00 07:00 Intake Total 1130 ml 180 ml Output Total 1520 ml 250 ml Balance -390 ml -70 ml Exam Respiratory: clear to auscultation Cardiovascular: regular rate and rhythm Gastrointestinal: soft Musculoskeletal: nl extremities to inspection Results Result Diagram: 11/27/16 0623 11/27/16 0623 Results 24 hrs Laboratory Tests Test 12/01/16 07:49 12/01/16 12:11 12/01/16 17:36 12/01/16 20:30 Bedside Glucose 98 97 145 112 Medications Medications Current Medications Pantoprazole (Protonix Tab) 40 mg DAILY@06 PO Last administered on 12/01/16 05 :54; Admin Dose 40 MG; Start 11/14/16 at 06:00 Diagnostic Test (Pha) (Accu-Chek) 1 ea 02 XX Last administered on 11/14/16 02: 38; Admin Dose 1 EA; Start 11/14/16 at 02:00 Lisinopril (Zestril) 10 mg DAILY PO Last administered on 12/01/16 08:39; Admin Dose 10 MG; Start 11/14/16 at 09:00 Miscellaneous Information 1 ea NOTE XX ; Start 11/13/16 at 23:30 Glucose (Glutose) 15 gm Q15M PRN PO DECREASED GLUCOSE; Start 11/13/16 at 23:30 Glucose (Glutose) 22.5 gm Q15M PRN PO DECREASED GLUCOSE; Start 11/13/16 at 23: 30 Glucagon (Glucagen) 1 mg Q15M PRN IM DECREASED GLUCOSE; Start 11/13/16 at 23:30 Glucose (Glutose) 15 gm Q15M PRN BUCCAL DECREASED GLUCOSE; Start 11/13/16 at 23 :30 Docusate Sodium (Colace) 100 mg TID PRN PO CONSTIPATION Last administered on 08:27; Admin Dose 100 MG; Start 11/13/16 at 23:45 Aspirin (Halfprin) 81 mg DAILY PO Last administered on 12/01/16 08:44; Admin Dose 81 MG; Start 11/14/16 at 09:00 Atorvastatin Calcium (Lipitor) 20 mg DAILY@21 PO Last administered on 20:31; Admin Dose 20 MG; Start 11/14/16 at 21:00 Bisacodyl (Dulcolax) 10 mg BID PRN PO CONSTIPATION Last administered on 08:27; Admin Dose 10 MG; Start 11/13/16 at 23:45 Docusate Sodium (Colace) 100 mg BID PO Last administered on 12/01/16 20:31; Admin Dose 100 MG; Start 11/15/16 at 21:00 Senna (Senokot) 1 tab QHS PO Last administered on 12/01/16 20:31; Admin Dose 1 TAB; Start 11/15/16 at 21:00 Acetaminophen (Tylenol Tab) 650 mg Q4H PRN PO PAIN; Start 11/15/16 at 09:30 Bisacodyl (Dulcolax Supp) 10 mg DAILY PRN [place] CONSTIPATION; Start 11/15/16 at 09: 30 Magnesium Hydroxide (Milk Of Mag) 30 ml BID PRN PO CONSTIPATION; Start 11/15/16 at 09:30 Lactulose (Enulose) 20 gm DAILY PRN PO CONSTIPATION; Start 11/15/16 at 09:11 Acetaminophen/ Hydrocodone Bitart ([place] (5/325)) 2 tab Q4H PRN PO PAIN LEVEL 6 -10 Last administered on 12/01/16 20:31; Admin Dose 2 TAB; Start 11/16/16 at 16: 00 Ondansetron HCl (Zofran Inj) 4 mg Q6H PRN IV NAUSEA AND/OR VOMITING Last administered on 11/17/16 10:16; Admin Dose 4 MG; Start 7/4/17 at 10:00 Insulin Glargine (Lantus) 5 unit BID@08,20 SC Last administered on 12/01/16t 20 :41; Admin Dose 5 UNIT; Start 11/20/16 at 20:00 NYASIA JOSEPH MD Dec 01, 2016 23:09
[2016-12-02] MEDS: ACCUCHECK AT 2AM (Patients on SS coverage) XX SCH (02:00)
[2016-12-02] MEDS: PANTOPRAZOLE (EC) 40 MG TAB PO SCH (06:40)
[2016-12-02] MEDS: Insulin NOVOLOG SS MODERATE Algorithm (SS with meals and bedtime) SC SCH ×4 (07:35→20:34)
[2016-12-02 07:38] VITALS: BP 117/67; RESP 18
[2016-12-02] MEDS: JENTADUETO PO SCH ×2 (07:56→17:22)
[2016-12-02] MEDS: INSULIN GLARGINE [LANtus] 3 ML PEN SC SCH ×2 (08:02→20:40)
[2016-12-02] MEDS: LISINOPRIL 10 MG TAB PO SCH (09:34)
[2016-12-02] MEDS: DOCUSATE SODIUM 100 MG CAP PO SCH ×2 (09:34→20:34)
[2016-12-02] MEDS: ASPIRIN (EC) 81 MG TAB PO SCH (09:34)
--- NOTE | 2016-12-02 11:40 | CONS ---
Date/Time of Note Date/Time of Note DATE: 12/02/16 TIME: 11:40 Consult Date/Type/Reason Admit Date/Time Nov 13, 2016 at 21:52 Type of Consultation: neuro Subjective remains motivated, in good spirits Objective pulm-cta sba ambulation Vital Signs Date Time Temp Pulse Resp B/P Pulse Ox O2 Delivery O2 Flow Rate FiO2 12/02/16 07:38 97.9 78 18 117/67 96 11/29/16 08:00 Room Air Intake and Output 12/01/16 12/01/16 12/02/16 15:00 23:00 07:00 Intake Total 1200 ml 740 ml Output Total 300 ml 900 ml Balance 1200 ml 440 ml -900 ml Results/Medications Results 24 hrs Laboratory Tests Test 12/01/16 12:11 12/01/16 17:36 12/01/16 20:30 12/02/16 07:45 Bedside Glucose 97 145 112 103 Medications Current Medications Pantoprazole (Protonix Tab) 40 mg DAILY@06 PO Last administered on 12/02/16 06 :40; Admin Dose 40 MG; Start 11/14/16 at 06:00 Diagnostic Test (Pha) (Accu-Chek) 1 ea 02 XX Last administered on 11/14/16 02: 38; Admin Dose 1 EA; Start 11/14/16 at 02:00 Lisinopril (Zestril) 10 mg DAILY PO Last administered on 12/02/16 09:34; Admin Dose 10 MG; Start 11/14/16 at 09:00 Miscellaneous Information 1 ea NOTE XX ; Start 11/13/16 at 23:30 Glucose (Glutose) 15 gm Q15M PRN PO DECREASED GLUCOSE; Start 11/13/16 at 23:30 Glucose (Glutose) 22.5 gm Q15M PRN PO DECREASED GLUCOSE; Start 11/13/16 at 23: 30 Glucagon (Glucagen) 1 mg Q15M PRN IM DECREASED GLUCOSE; Start 11/13/16 at 23:30 Glucose (Glutose) 15 gm Q15M PRN BUCCAL DECREASED GLUCOSE; Start 11/13/16 at 23 :30 Docusate Sodium (Colace) 100 mg TID PRN PO CONSTIPATION Last administered on 08:27; Admin Dose 100 MG; Start 11/13/16 at 23:45 Aspirin (Halfprin) 81 mg DAILY PO Last administered on 12/02/16 09:34; Admin Dose 81 MG; Start 11/14/16 at 09:00 Atorvastatin Calcium (Lipitor) 20 mg DAILY@21 PO Last administered on 20:31; Admin Dose 20 MG; Start 11/14/16 at 21:00 Bisacodyl (Dulcolax) 10 mg BID PRN PO CONSTIPATION Last administered on 08:27; Admin Dose 10 MG; Start 11/13/16 at 23:45 Docusate Sodium (Colace) 100 mg BID PO Last administered on 12/02/16 09:34; Admin Dose 100 MG; Start 11/15/16 at 21:00 Senna (Senokot) 1 tab QHS PO Last administered on 12/01/16 20:31; Admin Dose 1 TAB; Start 11/15/16 at 21:00 Acetaminophen (Tylenol Tab) 650 mg Q4H PRN PO PAIN; Start 11/15/16 at 09:30 Bisacodyl (Dulcolax Supp) 10 mg DAILY PRN [place] CONSTIPATION; Start 11/15/16 at 09: 30 Magnesium Hydroxide (Milk Of Mag) 30 ml BID PRN PO CONSTIPATION; Start 11/15/16 at 09:30 Lactulose (Enulose) 20 gm DAILY PRN PO CONSTIPATION; Start 11/15/16 at 09:11 Acetaminophen/ Hydrocodone Bitart ([place] (5/325)) 2 tab Q4H PRN PO PAIN LEVEL 6 -10 Last administered on 12/01/16 20:31; Admin Dose 2 TAB; Start 11/16/16 at 16: 00 Ondansetron HCl (Zofran Inj) 4 mg Q6H PRN IV NAUSEA AND/OR VOMITING Last administered on 11/17/16 10:16; Admin Dose 4 MG; Start 11/17/16 at 10:00 Insulin Glargine (Lantus) 5 unit BID@08,20 SC Last administered on 12/02/16 08 :02; Admin Dose 5 UNIT; Start 11/20/16 at 20:00 Assessment/Plan Additional Assessment/Plan 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 FERNANDA MARIE MD Dec 02, 2016 11:40
[2016-12-02] MEDS: HYDROCODONE/APAP (5/325) TAB PO PRN (19:34)
[2016-12-02 20:29] VITALS: BP 127/75; PULSE 87; RESP 18
[2016-12-02] MEDS: ATORVASTATIN 20 MG TAB PO SCH (20:33)
[2016-12-02] MEDS: SENNA TAB PO SCH (20:34)
--- NOTE | 2016-12-02 22:41 | PN ---
Date/Time of Note Date/Time of Note DATE: 12/02/16 TIME: 22:40 Assessment/Plan VTE Prophylaxis VTE Prophylaxis Intervention: other Lines/Catheters [facility] Saline Lock Urinary Cath still in place: No Assessment/Plan Chief Complaint/Hosp Course Patient is doing fine GB SYNDROME UTI treated S/P IVIG Patient is getting physical therapy daily PT OT stable US NEG home soon Problems: Subjective 24 Hr Interval Summary Cardiovascular: no complaints Gastrointestinal: no complaints Neurologic: No headache, No seizure Exam/Review of Systems Vital Signs Vitals Vital Signs Date Time Temp Pulse Resp B/P Pulse Ox O2 Delivery O2 Flow Rate FiO2 12/02/16 20:29 98.3 87 18 127/75 100 Room Air Intake and Output 12/01/16 12/01/16 12/02/16 15:00 23:00 07:00 Intake Total 1200 ml 740 ml Output Total 300 ml 900 ml Balance 1200 ml 440 ml -900 ml Exam Cardiovascular: regular rate and rhythm Gastrointestinal: soft Musculoskeletal: nl extremities to inspection Extremities: normal pulses Results Results 24 hrs Laboratory Tests Test 12/02/16 07:45 12/02/16 12:08 12/02/16 17:12 12/02/16 20:33 Bedside Glucose 103 116 110 97 Medications Medications Current Medications Pantoprazole (Protonix Tab) 40 mg DAILY@06 PO Last administered on 12/02/16 06 :40; Admin Dose 40 MG; Start 11/14/16 at 06:00 Diagnostic Test (Pha) (Accu-Chek) 1 ea 02 XX Last administered on 11/14/16 02: 38; Admin Dose 1 EA; Start 11/14/16 at 02:00 Lisinopril (Zestril) 10 mg DAILY PO Last administered on 12/02/16 09:34; Admin Dose 10 MG; Start 11/14/16 at 09:00 Miscellaneous Information 1 ea NOTE XX ; Start 11/13/16 at 23:30 Glucose (Glutose) 15 gm Q15M PRN PO DECREASED GLUCOSE; Start 11/13/16 at 23:30 Glucose (Glutose) 22.5 gm Q15M PRN PO DECREASED GLUCOSE; Start 11/13/16 at 23: 30 Glucagon (Glucagen) 1 mg Q15M PRN IM DECREASED GLUCOSE; Start 11/13/16 at 23:30 Glucose (Glutose) 15 gm Q15M PRN BUCCAL DECREASED GLUCOSE; Start 11/13/16 at 23 :30 Docusate Sodium (Colace) 100 mg TID PRN PO CONSTIPATION Last administered on 08:27; Admin Dose 100 MG; Start 11/13/16 at 23:45 Aspirin (Halfprin) 81 mg DAILY PO Last administered on 12/02/16 09:34; Admin Dose 81 MG; Start 11/14/16 at 09:00 Atorvastatin Calcium (Lipitor) 20 mg DAILY@21 PO Last administered on 20:33; Admin Dose 20 MG; Start 11/14/16 at 21:00 Bisacodyl (Dulcolax) 10 mg BID PRN PO CONSTIPATION Last administered on 08:27; Admin Dose 10 MG; Start 11/13/16 at 23:45 Docusate Sodium (Colace) 100 mg BID PO Last administered on 12/02/16 20:34; Admin Dose 100 MG; Start 11/15/16 at 21:00 Senna (Senokot) 1 tab QHS PO Last administered on 12/02/16 20:34; Admin Dose 1 TAB; Start 11/15/16 at 21:00 Acetaminophen (Tylenol Tab) 650 mg Q4H PRN PO PAIN; Start 11/15/16 at 09:30 Bisacodyl (Dulcolax Supp) 10 mg DAILY PRN [place] CONSTIPATION; Start 11/15/16 at 09: 30 Magnesium Hydroxide (Milk Of Mag) 30 ml BID PRN PO CONSTIPATION; Start 11/15/16 at 09:30 Lactulose (Enulose) 20 gm DAILY PRN PO CONSTIPATION; Start 11/15/16 at 09:11 Acetaminophen/ Hydrocodone Bitart ([place] (5/325)) 2 tab Q4H PRN PO PAIN LEVEL 6 -10 Last administered on 12/02/16 19:34; Admin Dose 2 TAB; Start 11/16/16 at 16: 00 Ondansetron HCl (Zofran Inj) 4 mg Q6H PRN IV NAUSEA AND/OR VOMITING Last administered on 11/17/16 10:16; Admin Dose 4 MG; Start 11/17/16 at 10:00 Insulin Glargine (Lantus) 5 unit BID@08,20 SC Last administered on 7/19/17at 20 :40; Admin Dose 5 UNIT; Start 11/20/16 at 20:00 NYASIA JOSEPH MD Dec 02, 2016 22:41
[2016-12-03 02:00] VITALS: BP 116/69; RESP 18
[2016-12-03] MEDS: ACCUCHECK AT 2AM (Patients on SS coverage) XX SCH (02:00)
[2016-12-03] MEDS: PANTOPRAZOLE (EC) 40 MG TAB PO SCH (06:44)
[2016-12-03 07:30] VITALS: BP 115/82; RESP 18
[2016-12-03] MEDS: Insulin NOVOLOG SS MODERATE Algorithm (SS with meals and bedtime) SC SCH ×2 (07:35→12:00)
[2016-12-03] MEDS: JENTADUETO PO SCH (08:21)
[2016-12-03] MEDS: INSULIN GLARGINE [LANtus] 3 ML PEN SC SCH (08:26)
[2016-12-03] MEDS: DOCUSATE SODIUM 100 MG CAP PO SCH (08:33)
[2016-12-03] MEDS: LISINOPRIL 10 MG TAB PO SCH (08:33)
[2016-12-03] MEDS: ASPIRIN (EC) 81 MG TAB PO SCH (08:47)
--- NOTE | 2016-12-03 10:50 | DS ---
Date/Time of Note Date/Time of Note DATE: 12/03/16 TIME: 10:46 Discharge Summary Admission/Discharge Info Admit Date/Time Nov 13, 2016 at 21:52 Discharge Date/Time Discharge Diagnosis 1.[place] Syndrome 2. Hypertension 3. Improvements in self care and mobility Patient Condition: Good Hx of Present Illness 46 yo male pt with lower extremities weakness for 3 days. Reported recent travel to [facility]. Was transferred to [facility] for further management. Found GB syndrome. After treatment with IVF, there is an improvement. Patient was admitted to the [facility] acute rehabilitation unit conference of interdisciplinary rehab care. Patient made excellent functional gains. Patient progressed from initial maximal assist for self-care mobility tasks, and progress to the point of supervised to modified independent for self- care and mobility tasks. Patient does still require assistance for stair mobility. Patient's family safely trained in assistance. Patient is being discharged home with recommendation of home health physical therapy and Occupational Therapy follow-up. The discharge medications are per the medication reconciliation sheet. Discharge equipment recommendations include front wheel walker with bilateral forearm troughs, wheelchair for community distances, shower chair commode chair. Hospital Course Patient is doing fine GB SYNDROME UTI treated S/P IVIG Patient is getting physical therapy daily PT OT stable US NEG home soon Home Meds Reported Medications Aspirin* (Aspirin* (EC)) 81 Mg Tablet.dr, 81 MG PO DAILY, TAB 11/10/16 Sitagliptin* (Januvia*) 50 Mg Tablet, 50 MG PO DAILY, #30 TAB 11/10/16 Linagliptin/Metformin HCl (Jentadueto Xr 2.5 mg-1,000 mg) 1 Each Tab.bp.24h, 1 EACH PO, TAB 11/10/16 Lisinopril* (Lisinopril*) 10 Mg Tablet, 10 MG PO DAILY, #30 TAB 11/10/16 Atorvastatin Calcium (Atorvastatin Calcium) 20 Mg Tablet, 20 MG PO QHS, #30 TAB 11/10/16 Empagliflozin (Jardiance) 10 Mg Tablet, 10 MG PO, TAB 11/10/16 Follow-up Plan Patient will follow up with field instructor in addition to neurology. Home health physical therapy and occupational therapy has been ordered. Primary Care Provider Care Physician No Primary Time spent on discharge: > 30 minutes Pending Labs Laboratory Tests Test 12/02/16 12:08 12/02/16 17:12 12/02/16 20:33 12/03/16 07:59 Bedside Glucose 116mg/dL (70-220) 110mg/dL (70-220) 97mg/dL (70-220) 134mg/dL (70-220) FERNANDA MARIE MD Dec 03, 2016 10:50
[2016-12-03] MEDS: HYDROCODONE/APAP (5/325) TAB PO PRN (14:28)
== END 2016-12-03 15:00 | disposition home health service (06) | DRG 92 ==
LOC: VRC 21:52
PROVIDERS: ADMIT Physical Medicine & Rehabilitation; ATTEND Internal Medicine Nephrology
DX: R20.9 Unspecified disturbances of skin sensation (principal); N39.0 Urinary tract infection, site not specified; G65.0 Sequelae of Guillain-Barre syndrome; M62.81 Muscle weakness (generalized); I10 Essential (primary) hypertension; Z74.09 Other reduced mobility; E11.9 Type 2 diabetes mellitus without complications; Z72.0 Tobacco use
CPT/HCPCS: 80048; 80053; 81001; 81003; 82962; 85025; 87081; 87086; 92610; 93971; 94640; 97110; 97112; 97116; 97150; 97163; 97167; 97530; 97535; 97542; A4310; J0696; J1815; J2405; L1820; L1932; L2820

== ENCOUNTER 2017-02-12 08:58 | Emergency (ER) | payer BC ==
[~2017-02-12] VITALS: Ht 165.1 cm; Wt 65.0 kg
[2017-02-12 09:01] VITALS: Ht 165.1 cm; Wt 65.0 kg
--- NOTE | 2017-02-12 10:39 | RADRPT ---
PROCEDURE: US DVT. CLINICAL INDICATION: Left lower extremity pain and swelling. TECHNIQUE: Multiple longitudinal and transverse images of the left lower extremity veins were obta ined with flores scale and color Doppler imaging. 2D grayscale measurements with compression, color D oppler flow, and augmentation was performed. The calf veins were interrogated as well. COMPARISON: No prior studies are available for comparison. FINDINGS: The left common femoral, superficial femoral and popliteal veins are normally compressible throughou t. Color flow demonstrates normal filling of the vessel. Normal waveforms are visualized and there is normal response to augmentation. The calf veins are visualized and are equally unremarkable. IMPRESSION: 1. No evidence of a deep vein thrombosis involving the left lower extremity. RPTAT: HH .Ya Thomas MD, MD Date Time Electronically viewed and signed by .Ya Thomas MD, MD on 02/12/2017 10:39 .N/
--- NOTE | 2017-02-12 12:32 | ERD ---
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 The patient indicates that over the past 24 hours he has had a shocklike sensation in the left calf. He states that it will shoot from the calf to the sole of his foot and has intermittent cramping. He denies any swelling of his calf. He has had no fevers no shaking or chills. Denies any shortness of breath at rest or exertion. He denies travel or prolonged immobilization. He denies any blunt or penetrating trauma to the left calf. He was seen and evaluated earlier today by his primary care physician Dr. Bellamy and instructed to come to the emergency department to be further evaluated and to rule out a deep vein thrombosis. ROS All systems reviewed and are negative except as per history of present illness. Medications Home Meds Reported Medications Aspirin* (Aspirin* (EC)) 81 Mg Tablet.dr, 81 MG PO DAILY, TAB 11/10/16 Sitagliptin* (Januvia*) 50 Mg Tablet, 50 MG PO DAILY, #30 TAB 11/10/16 Linagliptin/Metformin HCl (Jentadueto Xr 2.5 mg-1,000 mg) 1 Each Tab.bp.24h, 1 EACH PO, TAB 11/10/16 Lisinopril* (Lisinopril*) 10 Mg Tablet, 10 MG PO DAILY, #30 TAB 11/10/16 Atorvastatin Calcium (Atorvastatin Calcium) 20 Mg Tablet, 20 MG PO QHS, #30 TAB 11/10/16 Empagliflozin (Jardiance) 10 Mg Tablet, 10 MG PO, TAB 11/10/16 Allergies Allergies: Coded Allergies: No Known Allergy (Unverified , 02/12/17) PMhx/Soc History of Surgery: No Anesthesia Reaction: No Hx Neurological Disorder: Yes (GBS) Hx Respiratory Disorders: No Hx Cardiac Disorders: Yes (hypertension, diabetes) Hx Psychiatric Problems: Yes (depression) Hx Miscellaneous Medical Probl: Yes (DM, HTN, IVIG for [place]) Hx Alcohol Use: No Hx Substance Use: No Hx Tobacco Use: Yes Smoking Status: Never smoker Physical Exam Vitals Vital Signs Date Time Temp Pulse Resp B/P Pulse Ox O2 Delivery O2 Flow Rate FiO2 02/12/17 09:01 97.8 91 20 111/73 96 Physical Exam Constitutional:Well-developed. Well-nourished. Respiratory: Not using accessory muscles of respiration.Lungs were clear to auscultation bilaterally. No rhonchi. No rales. No wheezing. Cardiovascular: Regular rate regular rhythm.No murmurs. No rubs were appreciated.S1, S2 normal. Distal pulses are palpable 2+ bilaterally. Muscle skeletal: Full range of motion of both the upper and lower extremities bilaterally.Normal muscle tone.No assymetrical calf tenderness or swelling. Homans sign negative bilaterally. No pain out of proportion to physical exam of the left calf. No ecchymosis or soft tissue swelling of the left calf. Skin: No petechia, no purpura. No lesions on the palms or the soles of the feet. No maculopapular rash. NEURO: Patient was alert, awake, orientated x3.No facial droop. Gait observed and normal with no ataxia.Speech had regular rate and rhythm. No focal neurological deficits. Procedures/MDM Patient presented to the emergency department with left calf pain and spasms. I obtained a venous duplex ultrasound of the left lower extremity and there is no evidence of a deep vein thrombosis. The patient had no physical exam findings to suggest overlying cellulitis or necrotizing fasciitis. I did feel the patient be safely discharged home as this did appear to be more likely muscle skeletal injury. The patient was discharged home in fair condition. They were instructed to return to the emergency department at any time if there was any worsening of their condition. The patient stated they would follow up with their PCP in the next 24-48 hours to initiate a suitable medication regimen under the care of their PCP as well as to allow their PCP to monitor any drug reactions. The patient was discharged home with prescriptions after they gave informed consent to the new medication. They were also fully informed by myself on the adverse effects and adverse drug interactions in order to provide adequate safeguards to prevent possible adverse reactions to medications. Departure Diagnosis: Primary Impression: Tenderness of left calf Condition: KOREY Proctor Feb 12, 2017 12:31
[2017-02-12 13:13] VITALS: BP 118/77; PULSE 76; RESP 19; TEMP 98
== END 2017-02-12 13:14 | disposition home or self-care (01) ==
LOC: E/R 08:58
DX: M79.89 Other specified soft tissue disorders (principal); M79.605 Pain in left leg
CPT/HCPCS: 93971; Z7502